=== PATIENT | female | born 1965 | race Caucasian/White ===

== ENCOUNTER 2023-09-09 19:12 | Emergency (ER) | payer BC ==
[2023-09-09 20:17] LABS: Basophils # (A) 0.1 k/uL (0-0.2); Basophils % (A) 1 %; Eosinophils # (A) 0.1 k/uL (0-0.7); Eosinophils % (A) 1 %; HCT 50.2 % (34.0-46.0); HGB 16.7 gm/dL (11.4-16.0); Lymphocytes # (A) 1.9 k/uL (1.0-4.8); Lymphocytes % (A) 16 %; MCH 32.4 pg (25.0-35.0); MCHC 33.4 g/dL (31.0-37.0); MCV 97.1 fL (80.0-100.0); Mean Platelet Volume 8.8; Monocytes # (A) 0.6 k/uL (0-1.0); Monocytes % (A) 5 %; Neutrophils # (A) 8.9 k/uL (1.3-7.7); Neutrophils % (A) 77 %; Platelet Count 295 k/uL (150-450); RBC 5.17 m/uL (3.80-5.40); RDW 12.7 % (11.5-15.5); WBC 11.7 k/uL (3.8-10.6)
[2023-09-09 20:35] VITALS: TEMP 98
[2023-09-09 20:35] LABS: ALT 31 U/L (4-34); AST 29 U/L (14-36); African American GFR (CKD) >90 (>60 ml/min/1.73 sqM); Albumin 4.7 g/dL (3.5-5.0); Alkaline Phosphatase 106 U/L (38-126); Amylase 72 U/L (30-110); Anion Gap 14 mmol/L; Blood Urea Nitrogen 11 mg/dL (7-17); Calcium 9.5 mg/dL (8.4-10.2); Carbon Dioxide 21 mmol/L (22-30); Chloride 100 mmol/L (98-107); Glucose 233 mg/dL (74-99); Lipase 112 U/L (23-300); Non-African American GFR(CKD) >90 (>60 ml/min/1.73 sqM); Potassium 3.8 mmol/L (3.5-5.1); Sodium 135 mmol/L (137-145); Total Bilirubin 1.1 mg/dL (0.2-1.3); Total Protein 7.5 g/dL (6.3-8.2)
[2023-09-09] MEDS: KETOROLAC 15 MG/ML 1 ML VIAL IVP STA (20:45)
[2023-09-09] MEDS: ONDANSETRON ODT 8 MG TAB.RAPDIS PO STA (20:46)
[2023-09-09] MEDS: SODIUM CHLORIDE 0.9% 1,000 ML IV STA (20:46)
[2023-09-09] MEDS: HYDROmorphone 0.5 MG/0.5 ML SYRINGE IVP STA ×2 (21:34→23:59)
[2023-09-10] MEDS: ACETAMINOPHEN TAB 500 MG TAB PO STA (00:10)
[2023-09-10] MEDS: METOCLOPRAMIDE 5 MG/ML 2 ML VIAL IVP STA (01:29)
[2023-09-10] MEDS: HYDROmorphone 0.5 MG/0.5 ML SYRINGE IVP STA (01:33)
--- NOTE | 2023-09-10 01:48 | ED ---
Abdominal Pain HPI - General Chief Complaint: Abdominal Pain Stated Complaint: Vomiting Time Seen by Provider: 09/09/23 19:42 Source: patient, RN notes reviewed Mode of arrival: ambulatory Limitations: no limitations - History of Present Illness Initial Comments: 58-year-old female presents to the ED with complaints of abdominal pain. Patient states for the past 10 years has had intermittent episodes of epigastric abdominal pain with associated nausea and vomiting. Reports that it is due to "heavy metal poisoning" and states that all she needs is "4 bags of fluids and medications" for symptoms. Reports her symptoms today ongoing for the past week however no relief with home medications therefore prompting presentation to the ED for further evaluation. Denies changes in bowel or bladder habits. Denies fever or chills. Denies chest pain or shortness of breath. - Related Data Previous Rx's Medication Instructions Recorded Acetaminophen Tab [Tylenol] 500 mg PO Q6H PRN #30 tablet 09/10/23 Ondansetron Odt [Zofran Odt] 4 mg PO Q8HR PRN #10 tab 09/10/23 Allergies Allergy/AdvReac Type Severity Reaction Status Date / Time No Known Allergies Allergy Verified 09/09/23 19:33 Review of Systems ROS Statement: Those systems with pertinent positive or pertinent negative responses have been documented in the HPI. ROS Other: All systems not noted in ROS Statement are negative. Past Medical History Past Medical History: Diabetes Mellitus History of Any Multi-Drug Resistant Organisms: None Reported Past Surgical History: Cholecystectomy, Hysterectomy, Orthopedic Surgery, Tonsillectomy Past Psychological History: No Psychological Hx Reported Smoking Status: Never smoker Past Alcohol Use History: Occasional Past Drug Use History: None Reported General Exam Limitations: no limitations General appearance: alert, in no apparent distress Eye exam: Present: normal appearance Neck exam: Present: normal inspection Respiratory exam: Present: normal lung sounds bilaterally Cardiovascular Exam: Present: regular rate GI/Abdominal exam: Present: soft (Diffuse epigastric/upper abdominal tenderness to palpation. No rebound guarding or rigidity. Bowel sounds normal.). Absent: distended Neurological exam: Present: alert, oriented X3 Skin exam: Present: warm, dry Course Vital Signs 09/09/23 09/09/23 09/10/23 19:29 21:36 01:00 Temperature 98 F Pulse Rate 118 H 79 70 Respiratory 20 17 16 Rate Blood Pressure 169/100 111/88 113/76 O2 Sat by Pulse 97 96 97 Oximetry 09/10/23 01:36 Temperature Pulse Rate 71 Respiratory 16 Rate Blood Pressure 109/71 O2 Sat by Pulse 98 Oximetry Medical Decision Making - Medical Decision Making Was pt. sent in by a medical professional or institution (KAYLA Munoz, HE[employer], urgent care, hospital, or care home...) When possible be specific @ -No Did you speak to anyone other than the patient for history (EMS, parent, family, police, friend...)? What history was obtained from this source @ -No Did you review nursing and triage notes (agree or disagree)? Why? @ -I reviewed and agree with nursing and triage notes Were old charts reviewed (outside hosp., previous admission, EMS record, old EKG, old radiological studies, urgent care reports/EKG's, care home records)? Report findings @ -No old charts were reviewed Differential Diagnosis (chest pain, altered mental status, abdominal pain women, abdominal pain men, vaginal bleeding, weakness, fever, dyspnea, syncope, hea dache, dizziness, GI bleed, back pain, seizure, CVA, palpatations, mental health, musculoskeletal)? @ -Differential Abdominal Pain Women: Appendicitis, Cholecystitis, diverticulosis, ischemic bowel, pancreatitis, hepatitis, UTI, gastroenteritis, AAA, incarcerated hernia, bowel obstruction, constipation, inflammatory bowel, hepatitis, peptic ulcer disease, splenic infarction, perforated viscus, vulvitis, ovarian torsion, PID, kidney stone, placenta abruption, this is not meant to be an all-inclusive list EKG interpreted by me (3pts min.). @ -None X-rays interpreted by me (1pt min.). @ -None done CT interpreted by me (1pt min.). @ -None done U/S interpreted by me (1pt. min.). @ -None done What testing was considered but not performed or refused? (CT, X-rays, U/S, labs)? Why? @ -CT abdomen pelvis was considered however patient reports that she would not like to have one done as her symptoms are consistent with her history. What meds were considered but not given or refused? Why? @ -None Did you discuss the management of the patient with other professionals (professionals i.e. , KAYLA, [employer]ER, lab, RT, psych nurse, certified social workers in health care, manager event, teacher, chief quality officer, telephonic nurse case manager)? Give summary @ -No Was smoking cessation discussed for >3mins.? @ -No Was critical care preformed (if so, how long)? @ -No Were there social determinants of health that impacted care today? How? (Homelessness, low income, unemployed, alcoholism, drug addiction, transportation, low edu. Level, literacy, decrease access to med. care, long term, rehab)? @ -No Was there de-escalation of care discussed even if they declined (Discuss DNR or withdrawal of care, Hospice)? DNR status @ -No What co-morbidities impacted this encounter? (DM, HTN, Smoking, COPD, CAD, Cancer, CVA, ARF, Chemo, Hep., AIDS, mental health diagnosis, sleep apnea, morbid obesity)? @ -None Was patient admitted / discharged? Hospital course, mention meds given and route, prescriptions, significant lab abnormalities, going to OR and other pertinent info. @ -Discharge 58-year-old female presenting to the ED with complaints of epigastric abdominal pain with associated nausea and vomiting. Laboratory studies reviewed. Labs including CBC, CMP, amylase, lipase largely unremarkable. Patient would not provide us a urine sample. After receiving analgesia and antiemetics here patient reports feeling well. CT scan was considered however at this time patient would not like to have one done as her symptoms are consistent with her history of reports that she would just like medications to help her feel better to be discharged home. Discharged home in stable condition with prescription for Zofran. Discussed return precautions with patient who verbalized agreement. Undiagnosed new problem with uncertain prognosis? @ -No Drug Therapy requiring intensive monitoring for toxicity (Heparin, Nitro, Insulin, Cardizem)? @ -No Were any procedures done? @ -No Diagnosis/symptom? @ -Abdominal pain Acute, or Chronic, or Acute on Chronic? @ -Acute on chronic Uncomplicated (without systemic symptoms) or Complicated (systemic symptoms)? @ -Uncomplicated Side effects of treatment? @ -No Exacerbation, Progression, or Severe Exacerbation? @ -No Poses a threat to life or bodily function? How? (Chest pain, [place], [place], pneumonia, PE, COPD, DKA, ARF, appy, cholecystitis, CVA, Diverticulitis, Homicidal, Suicidal, threat to staff... and all critical care pts) @ -No - Lab Data Result diagrams: 09/09/23 20:01 09/09/23 20:01 Lab Results 09/09/23 09/09/23 Range/Units 20:01 20:01 WBC 11.7 H (3.8-10.6) k/uL RBC 5.17 (3.80-5.40) m/uL Hgb 16.7 H (11.4-16.0) gm/dL Hct 50.2 H (34.0-46.0) % MCV 97.1 (80.0-100.0) fL MCH 32.4 (25.0-35.0) pg MCHC 33.4 (31.0-37.0) g/dL RDW 12.7 (11.5-15.5) % Plt Count 295 (150-450) k/uL MPV 8.8 Neutrophils % 77 % Lymphocytes % 16 % Monocytes % 5 % Eosinophils % 1 % Basophils % 1 % Neutrophils # 8.9 H (1.3-7.7) k/uL Lymphocytes # 1.9 (1.0-4.8) k/uL Monocytes # 0.6 (0-1.0) k/uL Eosinophils # 0.1 (0-0.7) k/uL Basophils # 0.1 (0-0.2) k/uL Sodium 135 L (137-145) mmol/L Potassium 3.8 (3.5-5.1) mmol/L Chloride 100 (98-107) mmol/L Carbon Dioxide 21 L (22-30) mmol/L Anion Gap 14 mmol/L BUN 11 (7-17) mg/dL Creatinine 0.64 (0.52-1.04) mg/dL Est GFR (CKD-EPI)AfAm >90 (>60 ml/min/1.73 sqM) Est GFR (CKD-EPI)NonAf >90 (>60 ml/min/1.73 sqM) Glucose 233 H (74-99) mg/dL Calcium 9.5 (8.4-10.2) mg/dL Total Bilirubin 1.1 (0.2-1.3) mg/dL AST 29 (14-36) U/L ALT 31 (4-34) U/L Alkaline Phosphatase 106 (38-126) U/L Total Protein 7.5 (6.3-8.2) g/dL Albumin 4.7 (3.5-5.0) g/dL Amylase 72 (30-110) U/L Lipase 112 (23-300) U/L Disposition Clinical Impression: Abdominal pain Disposition: HOME SELF-CARE Condition: Good Additional Instructions: Please return to the Emergency Department if symptoms worsen or any other concerns. Please follow-up with your primary care provider. Prescriptions: Acetaminophen Tab [Tylenol] 500 mg PO Q6H PRN #30 tablet PRN Reason: Pain Ondansetron Odt [Zofran Odt] 4 mg PO Q8HR PRN #10 tab PRN Reason: Nausea Is patient prescribed a controlled substance at d/c from ED?: No Referrals: Nonstaff,Physician [Primary Care Provider] - 1-2 days Time of Disposition: 01:50
[2023-09-10 02:14] VITALS: BP 105/67; PULSE 86
[2023-09-10 02:15] VITALS: RESP 17
== END 2023-09-10 02:05 | disposition home or self-care (01) ==
LOC: EC 19:12
DX: R10.13 Epigastric pain (principal); Z90.49 Acquired absence of other specified parts of digestive tract
CPT/HCPCS: 80053; 82150; 83690; 85025; 99284; 96374; 96375 ×2; 96376 ×2; 96361 ×4; J1885; J1170; 36415

== ENCOUNTER 2023-09-10 17:33 | Observation (INO) | payer BC ==
--- NOTE | 2023-09-10 17:42 | ED ---
Nausea/Vomiting/Diarrhea HPI - General Chief complaint: Nausea/Vomiting/Diarrhea Stated complaint: VOMITING, PAIN Time Seen by Provider: 09/10/23 17:38 Source: patient, RN notes reviewed, old records reviewed Mode of arrival: ambulatory Limitations: no limitations - History of Present Illness Initial comments: This is a 58 female to the ER for evaluation of nausea vomiting recurrent evaluation of nausea vomiting with abdominal pain here in the emergency room no fevers no chills no sick contacts no diarrhea no blood in the vomit or stool MD complaint: nausea, vomiting, diarrhea, abdominal pain -: days(s) Description of Vomiting: food contents Description of Diarrhea: water Associated Abdominal Pain: Yes Location: diffuse Severity: mild Severity scale (1-10): 3 Quality: cramping, stabbing, sharp Consistency: intermittent Improves with: none Worsens with: none Associated Symptoms: loss of appetite, malaise, weakness - Related Data Previous Rx's Medication Instructions Recorded Acetaminophen Tab [Tylenol] 500 mg PO Q6H PRN #30 tablet 09/10/23 Ondansetron Odt [Zofran Odt] 4 mg PO Q8HR PRN #10 tab 09/10/23 Allergies Allergy/AdvReac Type Severity Reaction Status Date / Time No Known Allergies Allergy Verified 09/09/23 19:33 Review of Systems ROS Statement: Those systems with pertinent positive or pertinent negative responses have been documented in the HPI. ROS Other: All systems not noted in ROS Statement are negative. Past Medical History Past Medical History: Diabetes Mellitus History of Any Multi-Drug Resistant Organisms: None Reported Past Surgical History: Back Surgery, Cholecystectomy, Hysterectomy, Orthopedic Surgery, Tonsillectomy Past Psychological History: No Psychological Hx Reported Smoking Status: Never smoker Past Alcohol Use History: Occasional Past Drug Use History: None Reported General Exam Limitations: no limitations General appearance: alert, in no apparent distress Head exam: Present: atraumatic, normocephalic, normal inspection Eye exam: Present: normal appearance, PERRL, EOMI. Absent: scleral icterus, conjunctival injection, periorbital swelling ENT exam: Present: normal exam, mucous membranes moist Neck exam: Present: normal inspection. Absent: tenderness, meningismus, lymphadenopathy Respiratory exam: Present: normal lung sounds bilaterally. Absent: respiratory distress, wheezes, rales, rhonchi, stridor Cardiovascular Exam: Present: regular rate, normal rhythm, normal heart sounds. Absent: systolic murmur, diastolic murmur, rubs, gallop, clicks GI/Abdominal exam: Present: soft, normal bowel sounds. Absent: distended, tenderness, guarding, rebound, rigid Extremities exam: Present: normal inspection, full ROM, normal capillary refill. Absent: tenderness, pedal edema, joint swelling, calf tenderness Back exam: Present: normal inspection Neurological exam: Present: alert, oriented X3, CN II-XII intact Psychiatric exam: Present: normal affect, normal mood Skin exam: Present: warm, dry, intact, normal color. Absent: rash Course Vital Signs 09/10/23 09/10/23 17:34 20:49 Temperature 99.5 F Pulse Rate 119 H 84 Respiratory 22 18 Rate Blood Pressure 184/124 120/60 O2 Sat by Pulse 96 96 Oximetry - Reevaluation(s) Reevaluation #1: 09/10/23 17:42 Medical records reviewed Reevaluation #2: 09/10/23 17:42 Patient symptoms unchanged Reevaluation #3: 09/10/23 22:17 Patient informed of results and questions answered Reevaluation #4: Was pt. sent in by a medical professional or institution (, PA, CREW CHIEF, urgent care, hospital, or fci...) When possible be specific @ -no Did you speak to anyone other than the patient for history (EMS, parent, family, police, friend...)? What history was obtained from this source @ -no Did you review nursing and triage notes (agree or disagree)? Why? @ -agree Are old charts reviewed (outside hosp., previous admission, EMS record, old EKG, old radiological studies, urgent care reports/EKG's, fci records)? Report findings @ -yes Differential Diagnosis (chest pain, altered mental status, abdominal pain women, abdominal pain men, vaginal bleeding, weakness, fever, dyspnea, syncope, headache, dizziness, GI bleed, back pain, seizure, CVA, palpatations, mental health, musculoskeletal)? @ -prior EKG interpreted by me (3pts min.). @ -yes X-rays interpreted by me (1pt min.). @ -yes negative for acute disease CT interpreted by me (1pt min.). @ -no U/S interpreted by me (1pt. min.). @ -no What testing was considered but not performed or refused? (CT, X-rays, U/S, labs)? Why? @ -none What meds were considered but not given or refused? Why? @ -none Did you discuss the management of the patient with other professionals (professionals i.e. , PA, CREW CHIEF, lab, RT, psych nurse, vp digital marketing social media and crm, high school foreign language teacher, teacher, public relations officer, rn field case manager)? Give summary @ -no Was smoking cessation discussed for >3mins.? @ -no Were there social determinants of health that impacted care today? How? (Homele ssness, low income, unemployed, alcoholism, drug addiction, transportation, low edu. Level, literacy, decrease access to med. care, fdc, rehab)? @ -none Was there de-escalation of care discussed even if they declined (Discuss DNR or withdrawal of care, Hospice)? DNR status @ -no What co-morbidities impacted this encounter? (DM, HTN, Smoking, COPD, CAD, Cancer, CVA, ARF, Chemo, Hep., AIDS, mental health diagnosis, sleep apnea, morbid obesity)? @ -none Was patient admitted / discharged? Hospital course, mention meds given and route, prescriptions, significant lab abnormalities, going to OR and other pertinent info. @ - Was critical care preformed (if so, how long)? @ -no Undiagnosed new problem with uncertain prognosis? @ -no Drug Therapy requiring intensive monitoring for toxicity (Heparin, Nitro, Insulin, Cardizem)? @ -no Were any procedures done? @ -no Diagnosis/symptom? @ - Acute, or Chronic, or Acute on Chronic? @ -Acute Uncomplicated (without systemic symptoms) or Complicated (systemic symptoms)? @ -Complicated Side effects of treatment? @ -no Exacerbation, Progression, or Severe Exacerbation? @ -exacerbation Poses a threat to life or bodily function? How? (Chest pain, [place], [place], pneumonia, PE, COPD, DKA, ARF, appy, cholecystitis, CVA, Diverticulitis, Homicidal, Suicidal, threat to staff... and all critical care pts) @ -yes Reevaluation #5: Differential Abdominal Pain Women: Appendicitis, Cholecystitis, diverticulosis, ischemic bowel, pancreatitis, hepatitis, UTI, gastroenteritis, AAA, incarcerated hernia, bowel obstruction, constipation, inflammatory bowel, hepatitis, peptic ulcer disease, splenic infarction, perforated viscus, vulvitis, ovarian torsion, PID, kidney stone, placenta abruption, this is not meant to be an all-inclusive list - Consultations Consultation #1: Spoke with kathie who agrees to admit this patient Medical Decision Making - Medical Decision Making 58 female to the ER for evaluation of significant nausea vomiting diarrhea and abdominal pain. Patient will be admitted, does have findings of jejunitis, will admit for symptom control - Lab Data Result diagrams: 09/10/23 17:58 09/10/23 17:58 Lab Results 09/10/23 09/10/23 09/10/23 Range/Units 17:58 17:58 17:58 WBC 14.3 H (3.8-10.6) k/uL RBC 5.43 H (3.80-5.40) m/uL Hgb 17.0 H (11.4-16.0) gm/dL Hct 51.7 H (34.0-46.0) % MCV 95.3 (80.0-100.0) fL MCH 31.3 (25.0-35.0) pg MCHC 32.8 (31.0-37.0) g/dL RDW 12.6 (11.5-15.5) % Plt Count 327 (150-450) k/uL MPV 9.0 Neutrophils % 81 % Lymphocytes % 12 % Monocytes % 5 % Eosinophils % 1 % Basophils % 0 % Neutrophils # 11.6 H (1.3-7.7) k/uL Lymphocytes # 1.8 (1.0-4.8) k/uL Monocytes # 0.7 (0-1.0) k/uL Eosinophils # 0.1 (0-0.7) k/uL Basophils # 0.1 (0-0.2) k/uL PT (10.0-12.5) sec INR (<1.2) Sodium 135 L (137-145) mmol/L Potassium 3.7 (3.5-5.1) mmol/L Chloride 100 (98-107) mmol/L Carbon Dioxide 21 L (22-30) mmol/L Anion Gap 14 mmol/L BUN 10 (7-17) mg/dL Creatinine 0.58 (0.52-1.04) mg/dL Est GFR (CKD-EPI)AfAm >90 (>60 ml/min/1.73 sqM) Est GFR (CKD-EPI)NonAf >90 (>60 ml/min/1.73 sqM) Glucose 160 H (74-99) mg/dL Plasma Lactic Acid [place] 1.8 (0.7-2.0) mmol/L Calcium 9.3 (8.4-10.2) mg/dL Phosphorus 2.5 (2.5-4.5) mg/dL Magnesium 2.0 (1.6-2.3) mg/dL Total Bilirubin 1.2 (0.2-1.3) mg/dL AST 39 H (14-36) U/L ALT 32 (4-34) U/L Alkaline Phosphatase 119 (38-126) U/L Troponin I (0.000-0.034) ng/mL Total Protein 8.4 H (6.3-8.2) g/dL Albumin 5.0 (3.5-5.0) g/dL Amylase 101 (30-110) U/L Lipase 141 (23-300) U/L Urine Color Urine Appearance (Clear) Urine pH (5.0-8.0) Ur Specific [place] (1.001-1.035) Urine Protein (Negative) Urine Glucose (UA) (Negative) Urine Ketones (Negative) Urine Blood (Negative) Urine Nitrite (Negative) Urine Bilirubin (Negative) Urine Urobilinogen (<2.0) mg/dL Ur Leukocyte Esterase (Negative) Urine RBC (0-5) /hpf Urine WBC (0-5) /hpf Ur Squamous Epith Cells (0-4) /hpf Urine Mucus (None) /hpf 09/10/23 09/10/23 09/10/23 Range/Units 17:58 18:30 20:49 WBC (3.8-10.6) k/uL RBC (3.80-5.40) m/uL Hgb (11.4-16.0) gm/dL Hct (34.0-46.0) % MCV (80.0-100.0) fL MCH (25.0-35.0) pg MCHC (31.0-37.0) g/dL RDW (11.5-15.5) % Plt Count (150-450) k/uL MPV Neutrophils % % Lymphocytes % % Monocytes % % Eosinophils % % Basophils % % Neutrophils # (1.3-7.7) k/uL Lymphocytes # (1.0-4.8) k/uL Monocytes # (0-1.0) k/uL Eosinophils # (0-0.7) k/uL Basophils # (0-0.2) k/uL PT 10.7 (10.0-12.5) sec INR 1.0 (<1.2) Sodium (137-145) mmol/L Potassium (3.5-5.1) mmol/L Chloride (98-107) mmol/L Carbon Dioxide (22-30) mmol/L Anion Gap mmol/L BUN (7-17) mg/dL Creatinine (0.52-1.04) mg/dL Est GFR (CKD-EPI)AfAm (>60 ml/min/1.73 sqM) Est GFR (CKD-EPI)NonAf (>60 ml/min/1.73 sqM) Glucose (74-99) mg/dL Plasma Lactic Acid [place] (0.7-2.0) mmol/L Calcium (8.4-10.2) mg/dL Phosphorus (2.5-4.5) mg/dL Magnesium (1.6-2.3) mg/dL Total Bilirubin (0.2-1.3) mg/dL AST (14-36) U/L ALT (4-34) U/L Alkaline Phosphatase (38-126) U/L Troponin I <0.012 (0.000-0.034) ng/mL Total Protein (6.3-8.2) g/dL Albumin (3.5-5.0) g/dL Amylase (30-110) U/L Lipase (23-300) U/L Urine Color Colorless Urine Appearance Clear (Clear) Urine pH 6.0 (5.0-8.0) Ur Specific [place] >1.050 H (1.001-1.035) Urine Protein 1+ H (Negative) Urine Glucose (UA) Trace H (Negative) Urine Ketones 3+ H (Negative) Urine Blood Negative (Negative) Urine Nitrite Negative (Negative) Urine Bilirubin Negative (Negative) Urine Urobilinogen <2.0 (<2.0) mg/dL Ur Leukocyte Esterase Negative (Negative) Urine RBC 2 (0-5) /hpf Urine WBC <1 (0-5) /hpf Ur Squamous Epith Cells 1 (0-4) /hpf Urine Mucus Rare H (None) /hpf - Radiology Data Radiology results: report reviewed (CT pelvis with jejunitis), image reviewed Disposition Clinical Impression: Dehydration, Gastroenteritis, Intractable nausea, Intractable abdominal pain Disposition: ADMITTED IP TO THIS HOSP Condition: Fair Is patient prescribed a controlled substance at d/c from ED?: No Referrals: Nonstaff,Physician [Primary Care Provider] - 1-2 days Time of Disposition: 22:00
[2023-09-10 18:13] LABS: Basophils # (A) 0.1 k/uL (0-0.2); Basophils % (A) 0 %; Eosinophils # (A) 0.1 k/uL (0-0.7); Eosinophils % (A) 1 %; HCT 51.7 % (34.0-46.0); Lymphocytes # (A) 1.8 k/uL (1.0-4.8); Lymphocytes % (A) 12 %; MCH 31.3 pg (25.0-35.0); MCHC 32.8 g/dL (31.0-37.0); MCV 95.3 fL (80.0-100.0); Monocytes # (A) 0.7 k/uL (0-1.0); Monocytes % (A) 5 %; Neutrophils # (A) 11.6 k/uL (1.3-7.7); Neutrophils % (A) 81 %; Platelet Count 327 k/uL (150-450); RBC 5.43 m/uL (3.80-5.40); RDW 12.6 % (11.5-15.5); WBC 14.3 k/uL (3.8-10.6)
[2023-09-10] MEDS: ONDANSETRON 4 MG/2 ML VIAL IVP STA (18:13)
[2023-09-10 18:18] LABS: ALT 32 U/L (4-34); AST 39 U/L (14-36); African American GFR (CKD) >90 (>60 ml/min/1.73 sqM); Alkaline Phosphatase 119 U/L (38-126); Amylase 101 U/L (30-110); Anion Gap 14 mmol/L; Blood Urea Nitrogen 10 mg/dL (7-17); Calcium 9.3 mg/dL (8.4-10.2); Carbon Dioxide 21 mmol/L (22-30); Chloride 100 mmol/L (98-107); Glucose 160 mg/dL (74-99); Lipase 141 U/L (23-300); Non-African American GFR(CKD) >90 (>60 ml/min/1.73 sqM); Phosphorus 2.5 mg/dL (2.5-4.5); Potassium 3.7 mmol/L (3.5-5.1); Sodium 135 mmol/L (137-145); Total Bilirubin 1.2 mg/dL (0.2-1.3); Total Protein 8.4 g/dL (6.3-8.2)
[2023-09-10] MEDS: PANTOPRAZOLE 40 MG/10 ML VIAL IVP STA (18:25)
[2023-09-10] MEDS: SODIUM CHLORIDE 0.9% 500 ML 500 ML IV STA (18:26)
[2023-09-10] MEDS: SODIUM CHLORIDE 0.9% 1,000 ML IV STA ×2 (18:26)
[2023-09-10] MEDS: diphenhydrAMINE 50 MG/ML 1 ML VIAL IVP STA (18:30)
[2023-09-10] MEDS: PROCHLORPERAZINE INJ 10 MG/2 ML VIAL IVP STA (18:31)
[2023-09-10] MEDS: HYDROmorphone 1 MG/ML 1 ML SYRINGE IVP STA (18:31)
[2023-09-10 19:21] LABS: Prothrombin Time 10.7 sec (10.0-12.5)
[2023-09-10 20:57] LABS: Appearance,Urine Clear (Clear); Bilirubin,Urine Negative (Negative); Blood,Urine Negative (Negative); Color,Urine Colorless; Glucose,Urine (UA) Trace (Negative); Ketones,Urine 3+ (Negative); Leukocyte Esterase,Urine Negative (Negative); Mucus,Urine Rare /hpf; Nitrite,Urine Negative (Negative); Protein,Urine 1+ (Negative); RBC,Urine 2 /hpf (0-5); Squamous Epithelial Cell,Urine 1 /hpf (0-4); Urobilinogen,Urine <2.0 mg/dL (<2.0); WBC,Urine <1 /hpf (0-5)
[2023-09-10 21:22] LABS: Specific Gravity,Urine >1.050 (1.001-1.035)
--- NOTE | 2023-09-10 21:30 | CT ---
CTA CHEST EXAMINATION TYPE: CT angio chest DATE OF EXAM: 09/10/2023 INDICATION: epigastric pain/vomiting CT DLP: 416.4 mGycm, Automated exposure control for dose reduction was used. CONTRAST: Patient injected with 100 mL of Isovue 370. COMPARISON: None TECHNIQUE: CT of the chest is performed on a spiral scan at 2 mm thick sections. Study is performed with intravenous contrast timed for evaluation for pulmonary embolism. This will limit additional po rtions of the evaluation. 3-D MIP images reconstructed by the technologist are reviewed on the compu ter in the coronal and sagittal planes. FINDINGS: No persistent filling defects are evident to suggest an acute pulmonary embolism. No mediastinal or hilar adenopathy enlarged by CT criteria is evident. The ascending aorta diameter at the level of the main pulmonary artery is 4.0 cm. The main pulmonary artery diameter at the bifurcation is 2.5 cm. Lung windows are clear. Limited CT sections were through the upper abdomen. Upper abdomen appears unremarkable. IMPRESSION: 1. No acute pulmonary embolism. 2. No acute pulmonary process.
--- NOTE | 2023-09-10 21:34 | CT ---
EXAMINATION TYPE: CT abdomen pelvis w con DATE OF EXAM: 09/10/2023 COMPARISON: None INDICATION: epigastric pain/vomiting DLP: 1376.1 mGycm, Automated exposure control for dose reduction was used. CONTRAST: 100 mL of Isovue 300. Study performed without Oral Contrast TECHNIQUE: Axial images were obtained from above the diaphragm to the pubic rami in the axial plane a t 5 mm thick sections. Reconstructed images are reviewed on the computer in the coronal plane. FINDINGS: Limited CT sections are obtained the lung bases. The lung bases are clear. CT ABDOMEN: Liver: Normal Spleen: Normal Pancreas: Normal Adrenal glands: Left adrenal gland is mildly prominent 1.3 cm. Right adrenal gland appears unremarkab le. Gallbladder: Surgically absent Kidneys: No masses are evident. No hydronephrosis is present. No cysts are present. Delayed images were obtained through the kidneys, which remain unremarkable. Aorta: Vascular calcification is within the aorta. Inferior vena cava: Normal. CT PELVIS: There are jejunum which are thickened. No adjacent inflammatory change evident. No wall enhancement i s evident. The ileum has a normal caliber fluid-filled the distalmost ileum has a normal caliber with out fluid. Colon appears unremarkable. Diverticuli within the sigmoid colon. The study is without con trast material bowel evaluation. Appendix: Not clearly identified. No dilated tubular structure or inflammatory change is evident. Urinary bladder: Normal. Genitourinary structures: Uterus and ovaries are not identified. Osseous structures: No suspicious lytic or sclerotic lesions. IMPRESSION: 1. Clinical consideration for jejunitis. No obstruction is evident. Some mild mid small bowel ileal ileus may be present. 2. Mild prominence of left adrenal gland. 3. Diverticulosis without acute diverticulitis
[2023-09-10] MEDS ORDERED: NALOXONE 0.4 MG/ML 1 ML VIAL IV PRN (22:11)
[2023-09-10] MEDS: SODIUM CHLORIDE 0.9% 1,000 ML IV SCH (23:56)
[2023-09-11] MEDS ORDERED: DEXTROSE 50% SYRINGE 50 ML IVP PRN ×4 (02:22→16:12)
--- NOTE | 2023-09-11 02:28 | P.HPIM ---
History of Present Illness H&P Date: 09/10/23 Chief Complaint: Abdominal pain 58-year-old female with diabetes mellitus Patient coming in with 1 week history of repeated nausea vomiting and abdominal pain she describes the abdominal pain is severe colicky diffuse abdominal pain worse with fluid, associated with nausea vomiting worse with food. Patient has noticed decreased p.o. intake. Last bowel movement was few days ago she denies passing gases however she does not feel distended. She denies any fevers chills denies any chest pain trouble breathing. Patient is from out of town she lives in [place] they got about here for the summer and moved here with her her is feeling fine denies any s imilar symptoms. She denies any unsanitary food or drink. She denies any GI bleeding Last episode of vomiting was 1 hour ago while she was in the ED Patient denies tobacco smoking illicit drugs or heavy alcohol review of systems Pertinent positives as noted in HPI. All other systems were reviewed and are negative on exam Constitutional: No acute distress, conversant, pleasant Eyes: Anicteric sclerae, moist conjunctiva, Pupils equal round reactive to light ENMT: NC/AT Oropharynx clear, no erythema, or exudates Neck: Supple, no masses, or JVD No carotid bruits No thyromegaly Lungs: Clear to auscultation Clear to percussion Normal respiratory effort, no accessory muscle use Cardiovascular: Heart regular in rate and rhythm, No murmurs, gallops, or rubs No peripheral edema Abdominal: Soft Nontender, no guarding, rebound or rigidity Abdomen moving with respiration Normoactive bowel sounds Extremities: No digital cyanosis No clubbing Pedal pulses intact and symmetrical Radial pulses intact and symmetrical No calf tenderness Psychiatric: Alert and oriented to person, place and time Appropriate affect fair judgement Neuro Muscles Strength 5/5 in all 4 extremities Sensation to light touch grossly present throughout Cranial nerves II-XII grossly intact Lymphatics: no palpable cervical or supraclavicular lymph nodes Past Medical History Past Medical History: Diabetes Mellitus History of Any Multi-Drug Resistant Organisms: None Reported Past Surgical History: Back Surgery, Cholecystectomy, Hysterectomy, Orthopedic Surgery, Tonsillectomy Past Psychological History: No Psychological Hx Reported Smoking Status: Never smoker Past Alcohol Use History: Occasional Past Drug Use History: None Reported Medications and Allergies Home Medications Medication Instructions Recorded Confirmed Type Acetaminophen Tab [Tylenol] 500 mg PO Q6H PRN #30 tablet 09/10/23 Rx Ondansetron Odt [Zofran Odt] 4 mg PO Q8HR PRN #10 tab 09/10/23 Rx Allergies Allergy/AdvReac Type Severity Reaction Status Date / Time No Known Allergies Allergy Verified 09/09/23 19:33 Physical Exam Vitals: Vital Signs Temp Pulse Resp BP Pulse Ox 09/10/23 20:49 84 18 120/60 96 09/10/23 17:34 99.5 F 119 H 22 184/124 96 Intake and Output 09/10/23 09/10/23 09/10/23 06:59 14:59 22:59 Other: Weight 86.183 kg Results CBC & Chem 7: 09/10/23 17:58 09/10/23 17:58 Labs: Abnormal Lab Results - Last 24 Hours (Table) 09/10/23 09/10/23 09/10/23 Range/Units 17:58 17:58 20:49 WBC 14.3 H (3.8-10.6) k/uL RBC 5.43 H (3.80-5.40) m/uL Hgb 17.0 H (11.4-16.0) gm/dL Hct 51.7 H (34.0-46.0) % Neutrophils # 11.6 H (1.3-7.7) k/uL Sodium 135 L (137-145) mmol/L Carbon Dioxide 21 L (22-30) mmol/L Glucose 160 H (74-99) mg/dL AST 39 H (14-36) U/L Total Protein 8.4 H (6.3-8.2) g/dL Ur Specific [place] >1.050 H (1.001-1.035) Urine Protein 1+ H (Negative) Urine Glucose (UA) Trace H (Negative) Urine Ketones 3+ H (Negative) Urine Mucus Rare H (None) /hpf Assessment and Plan Assessment: 58-year-old female with diabetes mellitus coming in for repeated nausea vomiting abdominal pain no 5 to 7 days duration I discussed case with ED doctor and accepted the admission for ileus with anticipated length of stay less than 2 midnights Jejunitis with ileus N.p.o. IV fluid hydration normal saline status post 2 L bolus continue with 130 cc/h Symptomatic control of nausea vomiting and pain Zofran 4 mg every 8 hours as needed Pain control with opiates as needed CT of the abdomen showed jejunitis and ileus General surgery consult Protonix 40 mg IV push daily White count 14.3 afebrile Follow-up cultures Continue with Rocephin 1 g IV piggyback daily Flagyl 500 mg IV piggyback every 8 hours Lactic acid unremarkable 1.[address] enzymes un[address] angio of the chest negative for acute PE Diabetes mellitus Insulin sliding scale Blood work showing white count 14.3, hemoglobin 17 Sodium 135 potassium 3.7 BUN 10 creatinine 0.5 Full code DVT prophylaxis heparin subcutaneously GI prophylaxis on Protonix daily
[2023-09-11 03:27] LABS: Basophils % (A) 1 %; Eosinophils # (A) 0.2 k/uL (0-0.7); Eosinophils % (A) 3 %; Lymphocytes # (A) 2.6 k/uL (1.0-4.8); Lymphocytes % (A) 29 %; MCH 30.9 pg (25.0-35.0); MCHC 31.4 g/dL (31.0-37.0); MCV 98.5 fL (80.0-100.0); Mean Platelet Volume 8.6; Monocytes # (A) 0.5 k/uL (0-1.0); Monocytes % (A) 6 %; Neutrophils # (A) 5.3 k/uL (1.3-7.7); Neutrophils % (A) 60 %; Platelet Count 246 k/uL (150-450); RBC 4.26 m/uL (3.80-5.40); RDW 12.9 % (11.5-15.5); WBC 8.9 k/uL (3.8-10.6)
[2023-09-11 03:32] LABS: Chloride 107 mmol/L (98-107); Potassium 3.7 mmol/L (3.5-5.1); Sodium 136 mmol/L (137-145)
[2023-09-11 03:34] LABS: ALT 21 U/L (4-34); AST 21 U/L (14-36); African American GFR (CKD) >90 (>60 ml/min/1.73 sqM); Albumin 3.1 g/dL (3.5-5.0); Alkaline Phosphatase 68 U/L (38-126); Anion Gap 7 mmol/L; Blood Urea Nitrogen 8 mg/dL (7-17); Carbon Dioxide 22 mmol/L (22-30); Glucose 147 mg/dL (74-99); Magnesium 1.9 mg/dL (1.6-2.3); Non-African American GFR(CKD) >90 (>60 ml/min/1.73 sqM); Phosphorus 3.9 mg/dL (2.5-4.5); Total Bilirubin 0.8 mg/dL (0.2-1.3); Total Protein 5.4 g/dL (6.3-8.2)
[2023-09-11 03:41] LABS: HGB 13.2 gm/dL (11.4-16.0)
[2023-09-11] MEDS: HYDROmorphone 1 MG/ML 1 ML SYRINGE IVP PRN (04:24)
[2023-09-11] MEDS: metroNIDAZOLE-NS PMX 500 MG in SALINE 1 100ML.BAG IVPB SCH (04:28)
[2023-09-11 07:49] LABS: Glucose,Whole Blood 144 mg/dL (70-110)
[2023-09-11] MEDS: INSULIN ASPART (NovoLOG) 100 UNIT/ML VIAL SQ SCH ×2 (08:24→17:51)
[2023-09-11] MEDS: HEPARIN SODIUM,PORCINE 5,000 UNIT/ML 1 ML VIAL SQ SCH (08:30)
[2023-09-11] MEDS: PANTOPRAZOLE 40 MG/10 ML VIAL IV SCH (08:30)
[2023-09-11] MEDS: ONDANSETRON 4 MG/2 ML VIAL IVP PRN (08:30)
--- NOTE | 2023-09-11 10:46 | P.GSCN ---
History of Present Illness Consult date: 09/11/23 Reason for Consult: Abdominal pain History of present illness: 58-year-old female comes to the hospital complaining of intractable nausea and v omiting. Patient describes upper abdominal discomfort as well. Patient states she has had trouble since 2011. She said she had a back surgery and following that has had intermittent nausea and vomiting and the cyclical nature. Patient says she has not had an upper endoscopy in the last 10 years. Apparently she followed with a apple picker in [place]. She is staying here for the summer. Patient describes it constipation at times. No rectal bleeding or melena. No hematemesis. Patient is diabetic. Home medications included Zofran as needed. No antiacids noted. No history of ulcers. Normal bowel meant yesterday. Review of Systems The patient denies any acute changes in vision or hearing, no dysphagia or odynophagia, no chest pain or shortness of breath, no dysuria or hematuria, no headache, no runny nose, no rectal bleeding or melena, no unexplained weight loss Past Medical History Past Medical History: Diabetes Mellitus History of Any Multi-Drug Resistant Organisms: None Reported Past Surgical History: Back Surgery, Cholecystectomy, Hysterectomy, Orthopedic Surgery, Tonsillectomy Past Psychological History: No Psychological Hx Reported Smoking Status: Never smoker Past Alcohol Use History: Occasional Past Drug Use History: None Reported Medications and Allergies Home Medications Medication Instructions Recorded Confirmed Type Acetaminophen Tab [Tylenol] 500 mg PO Q6H PRN #30 tablet 09/10/23 Rx Ondansetron Odt [Zofran Odt] 4 mg PO Q8HR PRN #10 tab 09/10/23 Rx Allergies Allergy/AdvReac Type Severity Reaction Status Date / Time No Known Allergies Allergy Verified 09/09/23 19:33 Surgical - Exam Vital Signs Temp Pulse Resp BP Pulse Ox 99.5 F 119 H 22 184/124 96 09/10/23 17:34 09/10/23 17:34 09/10/23 17:34 09/10/23 17:34 09/10/23 17:34 Physical exam: General: Well-developed, well-nourished HEENT: Normocephalic, sclerae nonicteric Abdomen: Mild epigastric tenderness, nondistended Extremities: No edema Neuro: Alert and oriented Results - Labs 09/11/23 02:52 09/11/23 02:52 Abnormal Lab Results - Last 24 Hours (Table) 09/10/23 09/10/23 09/10/23 Range/Units 17:58 17:58 20:49 WBC 14.3 H (3.8-10.6) k/uL RBC 5.43 H (3.80-5.40) m/uL Hgb 17.0 H (11.4-16.0) gm/dL Hct 51.7 H (34.0-46.0) % Neutrophils # 11.6 H (1.3-7.7) k/uL Sodium 135 L (137-145) mmol/L Carbon Dioxide 21 L (22-30) mmol/L Glucose 160 H (74-99) mg/dL POC Glucose (mg/dL) (70-110) mg/dL Calcium (8.4-10.2) mg/dL AST 39 H (14-36) U/L Total Protein 8.4 H (6.3-8.2) g/dL Albumin (3.5-5.0) g/dL Ur Specific [place] >1.050 H (1.001-1.035) Urine Protein 1+ H (Negative) Urine Glucose (UA) Trace H (Negative) Urine Ketones 3+ H (Negative) Urine Mucus Rare H (None) /hpf 09/11/23 09/11/23 Range/Units 02:52 07:46 WBC (3.8-10.6) k/uL RBC (3.80-5.40) m/uL Hgb (11.4-16.0) gm/dL Hct (34.0-46.0) % Neutrophils # (1.3-7.7) k/uL Sodium 136 L (137-145) mmol/L Carbon Dioxide (22-30) mmol/L Glucose 147 H (74-99) mg/dL POC Glucose (mg/dL) 144 H (70-110) mg/dL Calcium 8.0 L (8.4-10.2) mg/dL AST (14-36) U/L Total Protein 5.4 L (6.3-8.2) g/dL Albumin 3.1 L (3.5-5.0) g/dL Ur Specific [place] (1.001-1.035) Urine Protein (Negative) Urine Glucose (UA) (Negative) Urine Ketones (Negative) Urine Mucus (None) /hpf Diabetes panel 09/10/23 09/11/23 Range/Units 17:58 02:52 Sodium 135 L 136 L (137-145) mmol/L Potassium 3.7 3.7 (3.5-5.1) mmol/L Chloride 100 107 (98-107) mmol/L Carbon Dioxide 21 L 22 (22-30) mmol/L BUN 10 8 (7-17) mg/dL Creatinine 0.58 0.56 (0.52-1.04) mg/dL Glucose 160 H 147 H (74-99) mg/dL Calcium 9.3 8.0 L (8.4-10.2) mg/dL AST 39 H 21 (14-36) U/L ALT 32 21 (4-34) U/L Alkaline Phosphatase 119 68 (38-126) U/L Total Protein 8.4 H 5.4 L (6.3-8.2) g/dL Albumin 5.0 3.1 L (3.5-5.0) g/dL Calcium panel 09/10/23 09/11/23 Range/Units 17:58 02:52 Calcium 9.3 8.0 L (8.4-10.2) mg/dL Phosphorus 2.5 3.9 (2.5-4.5) mg/dL Albumin 5.0 3.1 L (3.5-5.0) g/dL Pituitary panel 09/10/23 09/11/23 Range/Units 17:58 02:52 Sodium 135 L 136 L (137-145) mmol/L Potassium 3.7 3.7 (3.5-5.1) mmol/L Chloride 100 107 (98-107) mmol/L Carbon Dioxide 21 L 22 (22-30) mmol/L BUN 10 8 (7-17) mg/dL Creatinine 0.58 0.56 (0.52-1.04) mg/dL Glucose 160 H 147 H (74-99) mg/dL Calcium 9.3 8.0 L (8.4-10.2) mg/dL Adrenal panel 09/10/23 09/11/23 Range/Units 17:58 02:52 Sodium 135 L 136 L (137-145) mmol/L Potassium 3.7 3.7 (3.5-5.1) mmol/L Chloride 100 107 (98-107) mmol/L Carbon Dioxide 21 L 22 (22-30) mmol/L BUN 10 8 (7-17) mg/dL Creatinine 0.58 0.56 (0.52-1.04) mg/dL Glucose 160 H 147 H (74-99) mg/dL Calcium 9.3 8.0 L (8.4-10.2) mg/dL Total Bilirubin 1.2 0.8 (0.2-1.3) mg/dL AST 39 H 21 (14-36) U/L ALT 32 21 (4-34) U/L Alkaline Phosphatase 119 68 (38-126) U/L Total Protein 8.4 H 5.4 L (6.3-8.2) g/dL Albumin 5.0 3.1 L (3.5-5.0) g/dL Assessment and Plan (1) Intractable nausea Narrative/Plan: 58-year-old female with epigastric pain and intractable vomiting. CAT scan revi ewed. No obvious abnormalities noted. Mild jejunitis described by radiology however very subtle. Ideally this is a problem that gastroenterology would be evaluating. They are not available at this time. Will proceed with upper endoscopy tomorrow. If symptoms persist recommend outpatient GI evaluation. Current Visit: Yes Status: Acute Code(s): R11.0 - NAUSEA SNOMED Code(s): 133808312
[2023-09-11 12:48] LABS: Glucose,Whole Blood 172 mg/dL (70-110)
--- NOTE | 2023-09-11 14:20 | P.PN ---
Subjective Progress Note Date: 09/11/23 No new complaints at this time. Seen by surgery, recommending EGD. Gen: In NAD, non-toxic HEENT: normocephalic, atraumatic, hearing acuity is intant, mucous membranes moist CVS: perfusing all extremities well, no pitting edema, Respiratory: symmetric chest expansion, no accessory muscle use, GI: soft, epigastric tenderness, ND, : no suprapubic tenderness, no CVA tenderness MSK/Derm: no rashes, cyanosis Neuro: CN II-XII intact, no motor weakness, Psych: cooperative, euthymic mood, judgment and insight is intact Hospital course: 58-year-old female with diabetes mellitus coming in for repeated nausea vomiting abdominal pain. IV fluid hydration normal saline status post [address] of the abdomen showed jejunitis and ileus White count 14.3 afebrile Lactic acid unremarkable 1.[address] angio of the chest negative for acute PE Blood work showing white count 14.3, hemoglobin 17 Sodium 135 potassium 3.7 BUN 10 creatinine 0.5 Assessment/plan: Jejunitis with ileus N.p.o. continue with 130 cc/h Symptomatic control of nausea vomiting and pain Zofran 4 mg every 8 hours as needed Pain control with opiates as needed General surgery consult Protonix 40 mg IV push daily Follow-up cultures are still pending Continue with Rocephin 1 g IV piggyback daily Flagyl 500 mg IV piggyback every 8 hours Diabetes mellitus Insulin sliding scale Full code DVT prophylaxis heparin subcutaneously GI prophylaxis on Protonix daily Objective - Vital Signs Vital signs: Vital Signs Temp 98.3 F 09/11/23 07:38 Pulse 79 09/11/23 07:38 Resp 16 09/11/23 08:15 BP 137/77 09/11/23 07:38 Pulse Ox 96 09/11/23 07:38 FiO2 Intake & Output 09/10/23 09/11/23 09/11/23 18:59 06:59 18:59 Weight 86.183 kg Other: Voiding Method Toilet - Labs CBC & Chem 7: 09/11/23 02:52 09/11/23 02:52 Labs: Abnormal Lab Results - Last 24 Hours (Table) 09/10/23 09/10/23 09/10/23 Range/Units 17:58 17:58 20:49 WBC 14.3 H (3.8-10.6) k/uL RBC 5.43 H (3.80-5.40) m/uL Hgb 17.0 H (11.4-16.0) gm/dL Hct 51.7 H (34.0-46.0) % Neutrophils # 11.6 H (1.3-7.7) k/uL Sodium 135 L (137-145) mmol/L Carbon Dioxide 21 L (22-30) mmol/L Glucose 160 H (74-99) mg/dL POC Glucose (mg/dL) (70-110) mg/dL Calcium (8.4-10.2) mg/dL AST 39 H (14-36) U/L Total Protein 8.4 H (6.3-8.2) g/dL Albumin (3.5-5.0) g/dL Ur Specific [place] >1.050 H (1.001-1.035) Urine Protein 1+ H (Negative) Urine Glucose (UA) Trace H (Negative) Urine Ketones 3+ H (Negative) Urine Mucus Rare H (None) /hpf 09/11/23 09/11/23 09/11/23 Range/Units 02:52 07:46 12:47 WBC (3.8-10.6) k/uL RBC (3.80-5.40) m/uL Hgb (11.4-16.0) gm/dL Hct (34.0-46.0) % Neutrophils # (1.3-7.7) k/uL Sodium 136 L (137-145) mmol/L Carbon Dioxide (22-30) mmol/L Glucose 147 H (74-99) mg/dL POC Glucose (mg/dL) 144 H 172 H (70-110) mg/dL Calcium 8.0 L (8.4-10.2) mg/dL AST (14-36) U/L Total Protein 5.4 L (6.3-8.2) g/dL Albumin 3.1 L (3.5-5.0) g/dL Ur Specific [place] (1.001-1.035) Urine Protein (Negative) Urine Glucose (UA) (Negative) Urine Ketones (Negative) Urine Mucus (None) /hpf
[2023-09-11 17:24] LABS: Glucose,Whole Blood 168 mg/dL (70-110)
[2023-09-11 21:11] LABS: Glucose,Whole Blood 181 mg/dL (70-110)
[2023-09-12 03:42] VITALS: TEMP 98.1
[2023-09-12 05:51] LABS: Glucose,Whole Blood 159 mg/dL (70-110)
[2023-09-12 09:46] VITALS: RESP 16
[2023-09-12 10:41] LABS: Basophils # (A) 0.06 X 10*3/uL (0.00-0.10); Basophils % (A) 0.8 %; Eosinophils # (A) 0.27 X 10*3/uL (0.04-0.35); Eosinophils % (A) 3.6 %; HCT 40.4 % (37.2-46.3); Lymphocytes # (A) 1.45 X 10*3/uL (0.90-5.00); Lymphocytes % (A) 19.4 %; MCHC 32.2 g/dL (32.0-37.0); MCV 96.2 FL (80.0-97.0); Mean Platelet Volume 10.8 FL (9.5-12.2); Monocytes # (A) 0.53 X 10*3/uL (0.20-1.00); Monocytes % (A) 7.1 %; NRBC Per 100 WBC 0 X 10*3/uL (0.00-0.01); Neutrophils % (A) 68.4 %; Platelet Count 241 X 10*3/uL (140-440); RDW 12.9 % (11.5-14.5); WBC 7.46 X 10*3/uL (4.50-10.00)
[2023-09-12 11:29] LABS: BUN/Creat Ratio <5.83 Ratio (12.00-20.00); Blood Urea Nitrogen <3.5 mg/dL (9.0-27.0); Calcium 8.3 mg/dL (8.7-10.3); Carbon Dioxide 24.5 mmol/L (21.6-31.8); Chloride 106 mmol/L (96-109); Glucose 190 mg/dL (70-110); Magnesium 1.8 mg/dL (1.5-2.4); Potassium 3.9 mmol/L (3.5-5.5); Sodium 141 mmol/L (135-145)
[2023-09-12] MEDS: IV FLUID CONTINUATION 1,000 ML IV ONE (12:12)
[2023-09-12] MEDS ORDERED: PROPOFOL 10 MG/ML 20 ML VIAL IV ONE (12:13)
--- NOTE | 2023-09-12 12:24 | P.PCN ---
Date of Procedure: 09/12/23 Procedure(s) Performed: Preoperative Dx: Intractable vomiting Postoperative Dx: Gastritis Procedure: EGD with Bx Anesthesia: Sedation Endoscopist: Dr. Sánchez Specimens: Antrum Endoscopic Procedure: The patient was on the endoscopy table in the left decubitus position. The Olympus gastroscope was inserted into the oropharynx and passed under direct visualization to the region of the third portion of the duodenum. From that point the scope was slowly withdrawn inspecting all surfaces carefully. There were no neoplastic inflammatory or polypoid lesions throughout the duodenum. The pylorus was widely patent. The stomach was carefully inspected. There was gastritis present without ulcerations. A biopsy of the antrum took place to rule out H. pylori. Retroflexion revealed a normal hiatus. The esophagus was then carefully examined. There were no neoplastic inflammatory or polypoid lesions throughout the visualized esophagus. The patient was then taken to the recovery room in stable condition per anesthesia guidelines. Recommendations: Resume diet. Begin antiacids. May discharge if tolerates. Etiology for intractable vomiting could be related to longstanding diabetes and gastroparesis. Outpatient gastric emptying study or GI consult would be a viable options if symptoms persist.
[2023-09-12 12:36] LABS: Glucose,Whole Blood 156 mg/dL (70-110)
--- NOTE | 2023-09-12 13:45 | P.DS ---
Providers Date of admission: 09/10/23 22:12 Attending physician: Bal Taylor MD Consults: 09/11/23 02:22 Consult Physician Routine Consulting Provider: Tong Sánchez Reason/Comments: ileus Do you want consulting provider notified?: Yes Primary care physician: Physician Nonstaff Hospital Course: Discharge diagnosis Intractable nausea vomiting could be due to gastroparesis Type 2 diabetes mellitus Gastritis Hospital course Patient is a 58-year-old female with a past medical history of diabetes mellitus who comes into the ED with nausea vomiting abdominal pain. Patient had a CT scan that showed findings consistent with jejunitis and ileus. Patient had an EGD done that showed gastritis. At the time of discharge patient reported that her abdominal pain nausea vomiting had resolved and she wanted to go home. Patient was instructed to follow with GI outpatient for gastroparesis workup. Patient will resume her Pepcid 20 mg twice daily for the gastritis. Physical exam General examination - Alert and Oriented 3 in NAD Heart - + S1S2 no murmurs Lungs - Clear to auscultation Abdomen soft NT ND +ve BS Extremities - No edema ADVOCACY DIRECTOR - Moving all 4 extremities spontaneously Psych - Calm and cooperative Patient Condition at Discharge: Fair Plan - Discharge Summary Discharge Rx Participant: Yes New Discharge Prescriptions: Continue Ondansetron Odt [Zofran ODT] 4 mg PO Q8HR PRN PRN Reason: Nausea And Vomiting Thyroid,Pork [Senior Investigator Thyroid] 60 mg PO DAILY Promethazine HCl 25 mg PO Q4H PRN PRN Reason: Nausea And Vomiting INSULIN ASPART (NovoLOG) [NovoLOG (formulary)] 10 unit SQ AC-TID Zolpidem [Ambien] 10 mg PO HS Insulin Glargine-Yfgn [Semglee (Yfgn) Pen] 20 unit SQ HS Famotidine [Pepcid] 20 mg PO BID PRN PRN Reason: Gi Upset Escitalopram [Lexapro] 20 mg PO DAILY Atorvastatin [Lipitor] 10 mg PO DAILY Discharge Medication List Atorvastatin [Lipitor] 10 mg PO DAILY 09/11/23 [History] Escitalopram [Lexapro] 20 mg PO DAILY 09/11/23 [History] Famotidine [Pepcid] 20 mg PO BID PRN 09/11/23 [History] INSULIN ASPART (NovoLOG) [NovoLOG (formulary)] 10 unit SQ AC-TID 09/11/23 [History] Insulin Glargine-Yfgn [Semglee (Yfgn) Pen] 20 unit SQ HS 09/11/23 [History] Ondansetron Odt [Zofran ODT] 4 mg PO Q8HR PRN 09/11/23 [History] Promethazine HCl 25 mg PO Q4H PRN 09/11/23 [History] Thyroid,Pork [Senior Investigator Thyroid] 60 mg PO DAILY 09/11/23 [History] Zolpidem [Ambien] 10 mg PO HS 09/11/23 [History] Follow up Appointment(s)/Referral(s): Nonstaff,Physician [Primary Care Provider] - 1-2 days Marie Paige MD [STAFF PHYSICIAN] - 1 Week Discharge Disposition: HOME SELF-CARE
[2023-09-12 15:41] VITALS: BP 133/75; PULSE 75
== END 2023-09-12 14:38 | disposition home or self-care (01) ==
LOC: EC 17:33 → 6NMEDSUR 22:12
PROVIDERS: ADMIT Internal Medicine; ATTEND Internal Medicine
DX: K29.50 Unspecified chronic gastritis without bleeding (principal); K52.9 Noninfective gastroenteritis and colitis, unspecified; K56.7 Ileus, unspecified; E86.0 Dehydration; E11.9 Type 2 diabetes mellitus without complications; K21.9 Gastro-esophageal reflux disease without esophagitis; E78.5 Hyperlipidemia, unspecified; E03.9 Hypothyroidism, unspecified; Z79.4 Long term (current) use of insulin; Z79.890 Hormone replacement therapy; Z79.899 Other long term (current) drug therapy; Z87.891 Personal history of nicotine dependence
CPT/HCPCS: 96376 ×3; 96372 ×2; 96361 ×2; 96365; 96375 ×2; 99285; 36415; 88305; 80053 ×2; 80048; 82150; 83605; 83690; 83735 ×3; 84100 ×2; 84484; 85025 ×3; 85610; 81001; 87040; 83036; 71275; 74177; 43239; G0378 ×3; J1200; J0780; J1644 ×2; J3360; J2405 ×3; J0696 ×2; J1170 ×3; J2704; C9113 ×2; Q9967; J1836 ×2

== ENCOUNTER 2023-10-01 08:27 | Emergency (ER) | payer BC ==
--- NOTE | 2023-10-01 09:06 | ED ---
General Adult HPI - General Chief complaint: Nausea/Vomiting/Diarrhea Stated complaint: Vomiting Time Seen by Provider: 10/01/23 08:35 Source: patient, RN notes reviewed, old records reviewed Mode of arrival: ambulatory Limitations: no limitations - History of Present Illness Initial comments: This is a 58-year-old female who presents to the emergency department with a past medical history significant for cyclic vomiting. Patient started feeling off yesterday and then started vomiting today and she cannot stop. Patient does smoke marijuana on a regular basis. Patient does not believe that the problem. Patient states it is from back surgery that somehow put metal into her system. Patient denies any significant abdominal pain it is more nausea and cramping. Patient Nuys back pain. Patient has any fever or chills. Patient Nuys any chest pain or difficulty breathing - Related Data Home Medications Medication Instructions Recorded Confirmed Atorvastatin [Lipitor] 10 mg PO DAILY 09/11/23 09/11/23 Escitalopram [Lexapro] 20 mg PO DAILY 09/11/23 09/11/23 Famotidine [Pepcid] 20 mg PO BID PRN 09/11/23 09/11/23 INSULIN ASPART (NovoLOG) [NovoLOG 10 unit SQ AC-TID 09/11/23 09/11/23 (formulary)] Insulin Glargine-Yfgn [Semglee 20 unit SQ HS 09/11/23 09/11/23 (Yfgn) Pen] Ondansetron Odt [Zofran ODT] 4 mg PO Q8HR PRN 09/11/23 09/11/23 Promethazine HCl 25 mg PO Q4H PRN 09/11/23 09/11/23 Thyroid,Pork [Hairspring I Inspector Thyroid] 60 mg PO DAILY 09/11/23 09/11/23 Zolpidem [Ambien] 10 mg PO HS 09/11/23 09/11/23 Allergies Allergy/AdvReac Type Severity Reaction Status Date / Time No Known Allergies Allergy Verified 10/01/23 08:36 Review of Systems ROS Statement: Those systems with pertinent positive or pertinent negative responses have been documented in the HPI. ROS Other: All systems not noted in ROS Statement are negative. Past Medical History Past Medical History: Diabetes Mellitus History of Any Multi-Drug Resistant Organisms: None Reported Past Surgical History: Back Surgery, Cholecystectomy, Hysterectomy, Orthopedic Surgery, Tonsillectomy Additional Past Surgical History / Comment(s): bilateral foot sx- mortons neuroma removal, Past Anesthesia/Blood Transfusion Reactions: Postoperative Nausea & Vomiting (PONV) Past Psychological History: No Psychological Hx Reported Smoking Status: Never smoker Past Alcohol Use History: Occasional Past Drug Use History: Marijuana - Past Family History Mother Family Medical History: Cancer Additional Family Medical History / Comment(s): breast cancer Father Additional Family Medical History / Comment(s): AAA General Exam - General Exam Comments Initial Comments: GENERAL: Patient is well-developed and well-nourished. Patient is nontoxic and well- hydrated and is in mild distress. ENT: Neck is soft and supple. No significant lymphadenopathy is noted. Oropharynx is clear. Moist mucous membranes. Neck has full range of motion without eliciting any pain. EYES: The sclera were anicteric and conjunctiva were pink and moist. Extraocular movements were intact and pupils were equal round and reactive to light. Eyelids were unremarkable. PULMONARY: Unlabored respirations. Good breath sounds bilaterally. No audible rales rhonchi or wheezing was noted. CARDIOVASCULAR: There is a regular rate and rhythm without any murmurs gallops or rubs. ABDOMEN: Soft and nontender with normal bowel sounds. SKIN: Skin is clear with no lesions or rashes and otherwise unremarkable. NEUROLOGIC: Patient is alert and oriented x3. Cranial nerves II through XII are grossly intact. Motor and sensory are also intact. Normal speech, volume and content. Symmetrical smile. MUSCULOSKELETAL: Normal extremities with adequate strength and full range of motion. LYMPHATICS: No significant lymphadenopathy is noted PSYCHIATRIC: Normal psychiatric evaluation. Limitations: no limitations Course Vital Signs 10/01/23 10/01/23 08:32 11:16 Temperature 98.6 F 98.6 F Pulse Rate 122 H 105 H Respiratory 22 16 Rate Blood Pressure 131/98 187/101 O2 Sat by Pulse 98 95 Oximetry Medical Decision Making - Medical Decision Making EKG is interpreted by myself but EKG shows a sinus tachycardia at 112 bpm parables 158 QRS is 82 QT interval 318 QTc is 384. Patient's EKG is of poor quality but shows no obvious ST segment elevation Was pt. sent in by a medical professional or institution (, PA, INSIDE SALES ADMINISTRATOR, urgent care, hospital, or fdc...) When possible be specific @ -No Did you speak to anyone other than the patient for history (EMS, parent, family, police, friend...)? What history was obtained from this source @ -No Did you review nursing and triage notes (agree or disagree)? Why? @ -I reviewed and agree with nursing and triage notes Were old charts reviewed (outside hosp., previous admission, EMS record, old EKG, old radiological studies, urgent care reports/EKG's, fdc records)? Report findings @ -No old charts were reviewed Differential Diagnosis (chest pain, altered mental status, abdominal pain women, abdominal pain men, vaginal bleeding, weakness, fever, dyspnea, syncope, headache, dizziness, GI bleed, back pain, seizure, CVA, palpatations, mental health, musculoskeletal)? @ -Cyclic vomiting, gastritis, gastroenteritis, viral syndrome, pancreatitis, DKA, this is not an all-inclusive list EKG interpreted by me (3pts min.). @ -As above X-rays interpreted by me (1pt min.). @ -None done CT interpreted by me (1pt min.). @ -None done U/S interpreted by me (1pt. min.). @ -None done What testing was considered but not performed or refused? (CT, X-rays, U/S, labs)? Why? @ -None What meds were considered but not given or refused? Why? @ -None Did you discuss the management of the patient with other professionals (professionals i.e. , PA, INSIDE SALES ADMINISTRATOR, lab, RT, psych nurse, drug abuse social worker, cut out worker, teacher, major gifts officer, shelter case manager)? Give summary @ -No Was smoking cessation discussed for >3mins.? @ -No Was critical care preformed (if so, how long)? @ -No Were there social determinants of health that impacted care today? How? (Homel essness, low income, unemployed, alcoholism, drug addiction, transportation, low edu. Level, literacy, decrease access to med. care, skilled nursing, rehab)? @ -No Was there de-escalation of care discussed even if they declined (Discuss DNR or withdrawal of care, Hospice)? DNR status @ -No What co-morbidities impacted this encounter? (DM, HTN, Smoking, COPD, CAD, Cancer, CVA, ARF, Chemo, Hep., AIDS, mental health diagnosis, sleep apnea, morbid obesity)? @ -None Was patient admitted / discharged? Hospital course, mention meds given and route, prescriptions, significant lab abnormalities, going to OR and other pertinent info. @ -Patient is given 2 L of fluid and droperidol which stopped her vomiting almo st completely however she had 1 more episode so she was given Zofran and Ativan and she slept for the next few hours that woke her back up and she felt better and was willing to be discharged home. Patient's insulin was 400 and she was given NovoLog. Undiagnosed new problem with uncertain prognosis? @ -No Drug Therapy requiring intensive monitoring for toxicity (Heparin, Nitro, Insulin, Cardizem)? @ -No Were any procedures done? @ -No Diagnosis/symptom? @ -Cyclic vomiting Acute, or Chronic, or Acute on Chronic? @ -Acute Uncomplicated (without systemic symptoms) or Complicated (systemic symptoms)? @ -Complicated Side effects of treatment? @ -No Exacerbation, Progression, or Severe Exacerbation? @ -No Poses a threat to life or bodily function? How? (Chest pain, [place], [place], pneumonia, PE, COPD, DKA, ARF, appy, cholecystitis, CVA, Diverticulitis, Homicidal, Suicidal, threat to staff... and all critical care pts) @ -No - Lab Data Result diagrams: 10/01/23 09:11 10/01/23 09:11 Lab Results 10/01/23 10/01/23 10/01/23 Range/Units 09:11 09:11 09:11 WBC 11.8 H (3.8-10.6) k/uL RBC 5.24 (3.80-5.40) m/uL Hgb 16.5 H D (11.4-16.0) gm/dL Hct 51.7 H (34.0-46.0) % MCV 98.8 (80.0-100.0) fL MCH 31.4 (25.0-35.0) pg MCHC 31.8 (31.0-37.0) g/dL RDW 12.9 (11.5-15.5) % Plt Count 310 (150-450) k/uL MPV 10.0 Neutrophils % 89 % Lymphocytes % 7 % Monocytes % 2 % Eosinophils % 0 % Basophils % 1 % Neutrophils # 10.4 H (1.3-7.7) k/uL Lymphocytes # 0.9 L (1.0-4.8) k/uL Monocytes # 0.3 (0-1.0) k/uL Eosinophils # 0.0 (0-0.7) k/uL Basophils # 0.1 (0-0.2) k/uL Sodium 135 L (137-145) mmol/L Potassium 4.4 (3.5-5.1) mmol/L Chloride 102 (98-107) mmol/L Carbon Dioxide 19 L (22-30) mmol/L Anion Gap 14 mmol/L BUN 11 (7-17) mg/dL Creatinine 0.56 (0.52-1.04) mg/dL Est GFR (CKD-EPI)AfAm >90 (>60 ml/min/1.73 sqM) Est GFR (CKD-EPI)NonAf >90 (>60 ml/min/1.73 sqM) Glucose 420 H (74-99) mg/dL POC Glucose (mg/dL) (70-110) mg/dL POC Glu Fish Trapper ID Calcium 9.7 (8.4-10.2) mg/dL Total Bilirubin 0.7 (0.2-1.3) mg/dL AST 27 (14-36) U/L ALT 24 (4-34) U/L Alkaline Phosphatase 174 H (38-126) U/L Total Protein 7.5 (6.3-8.2) g/dL Albumin 4.8 (3.5-5.0) g/dL Amylase 142 H (30-110) U/L Lipase 476 H (23-300) U/L Acetone, Qual Positive (Negative) 10/01/23 Range/Units 10:42 WBC (3.8-10.6) k/uL RBC (3.80-5.40) m/uL Hgb (11.4-16.0) gm/dL Hct (34.0-46.0) % MCV (80.0-100.0) fL MCH (25.0-35.0) pg MCHC (31.0-37.0) g/dL RDW (11.5-15.5) % Plt Count (150-450) k/uL MPV Neutrophils % % Lymphocytes % % Monocytes % % Eosinophils % % Basophils % % Neutrophils # (1.3-7.7) k/uL Lymphocytes # (1.0-4.8) k/uL Monocytes # (0-1.0) k/uL Eosinophils # (0-0.7) k/uL Basophils # (0-0.2) k/uL Sodium (137-145) mmol/L Potassium (3.5-5.1) mmol/L Chloride (98-107) mmol/L Carbon Dioxide (22-30) mmol/L Anion Gap mmol/L BUN (7-17) mg/dL Creatinine (0.52-1.04) mg/dL Est GFR (CKD-EPI)AfAm (>60 ml/min/1.73 sqM) Est GFR (CKD-EPI)NonAf (>60 ml/min/1.73 sqM) Glucose (74-99) mg/dL POC Glucose (mg/dL) 352 H (70-110) mg/dL POC Glu Fish Trapper ID Calcium (8.4-10.2) mg/dL Total Bilirubin (0.2-1.3) mg/dL AST (14-36) U/L ALT (4-34) U/L Alkaline Phosphatase (38-126) U/L Total Protein (6.3-8.2) g/dL Albumin (3.5-5.0) g/dL Amylase (30-110) U/L Lipase (23-300) U/L Acetone, Qual (Negative) Disposition Clinical Impression: Cyclic vomiting syndrome, Hyperglycemia Disposition: HOME SELF-CARE Instructions (If sedation given, give patient instructions): Cyclic Vomiting Syndrome (ED) Is patient prescribed a controlled substance at d/c from ED?: No Referrals: None,Stated [Primary Care Provider] - 1-2 days Time of Disposition: 12:14
[2023-10-01] MEDS: SODIUM CHLORIDE 0.9% 2,000 ML IV STA (09:14)
[2023-10-01] MEDS: droPERidol 5 MG/2 ML VIAL IVP ONE (09:14)
[2023-10-01 09:28] LABS: ALT 24 U/L (4-34); AST 27 U/L (14-36); African American GFR (CKD) >90 (>60 ml/min/1.73 sqM); Albumin 4.8 g/dL (3.5-5.0); Alkaline Phosphatase 174 U/L (38-126); Amylase 142 U/L (30-110); Anion Gap 14 mmol/L; Blood Urea Nitrogen 11 mg/dL (7-17); Calcium 9.7 mg/dL (8.4-10.2); Carbon Dioxide 19 mmol/L (22-30); Chloride 102 mmol/L (98-107); Glucose 420 mg/dL (74-99); Lipase 476 U/L (23-300); Non-African American GFR(CKD) >90 (>60 ml/min/1.73 sqM); Potassium 4.4 mmol/L (3.5-5.1); Sodium 135 mmol/L (137-145); Total Bilirubin 0.7 mg/dL (0.2-1.3); Total Protein 7.5 g/dL (6.3-8.2)
[2023-10-01 10:07] LABS: Basophils # (A) 0.1 k/uL (0-0.2); Basophils % (A) 1 %; Eosinophils % (A) 0 %; HCT 51.7 % (34.0-46.0); Lymphocytes # (A) 0.9 k/uL (1.0-4.8); Lymphocytes % (A) 7 %; MCH 31.4 pg (25.0-35.0); MCHC 31.8 g/dL (31.0-37.0); MCV 98.8 fL (80.0-100.0); Monocytes # (A) 0.3 k/uL (0-1.0); Monocytes % (A) 2 %; Neutrophils # (A) 10.4 k/uL (1.3-7.7); Neutrophils % (A) 89 %; Platelet Count 310 k/uL (150-450); RBC 5.24 m/uL (3.80-5.40); RDW 12.9 % (11.5-15.5); WBC 11.8 k/uL (3.8-10.6)
[2023-10-01 10:15] LABS: HGB 16.5 gm/dL (11.4-16.0)
[2023-10-01 10:43] LABS: Glucose,Whole Blood 352 mg/dL (70-110)
[2023-10-01] MEDS: LORazepam 2 MG/ML INJ IV STA (10:44)
[2023-10-01] MEDS: KETOROLAC 15 MG/ML 1 ML VIAL IVP STA (10:44)
[2023-10-01] MEDS: ONDANSETRON 4 MG/2 ML VIAL IVP STA (10:45)
[2023-10-01 11:17] VITALS: RESP 16
[2023-10-01] MEDS: INSULIN ASPART (NovoLOG) 100 UNIT/ML VIAL SQ ONE (11:32)
[2023-10-01 12:38] VITALS: BP 149/78; PULSE 79; TEMP 98.2
== END 2023-10-01 12:37 | disposition home or self-care (01) ==
LOC: EC 08:27
DX: R11.15 Cyclical vomiting syndrome unrelated to migraine (principal); R73.9 Hyperglycemia, unspecified; Z90.49 Acquired absence of other specified parts of digestive tract
CPT/HCPCS: 36415; 93005; 80053; 82150; 82009; 83690; 85025; 99284; 96374; 96375 ×3; 96361; J2060; J2405; J1885; J1790

== ENCOUNTER 2023-10-02 14:00 | Emergency (ER) | payer BC ==
[2023-10-02 14:14] VITALS: TEMP 98.2
--- NOTE | 2023-10-02 14:39 | ED ---
General Adult HPI - General Chief complaint: Abdominal Pain Stated complaint: abd pain,vomiting Time Seen by Provider: 10/02/23 14:18 Source: patient, RN notes reviewed Mode of arrival: ambulatory Limitations: no limitations - History of Present Illness Initial comments: This is a 58-year-old female with past medical history of cyclical vomiting and gastritis who presents emergency department chief complaint of epigastric discomfort and vomiting. Patient was seen in the emergency department yesterday on 10/01/2023 with similar symptoms. Patient states that her symptoms mildly resolved after discharge states that she is still experiencing nausea and vomiting. Patient was seen in the emergency department for similar symptoms a EGD was completed on 09/11 which revealed gastritis. Patient is requesting Dilaudid pain medication at this time. She denies chest pain, or palpitations, dizziness, lightheadedness. Denies urinary symptoms. - Related Data Home Medications Medication Instructions Recorded Confirmed Atorvastatin [Lipitor] 10 mg PO DAILY 09/11/23 09/11/23 Escitalopram [Lexapro] 20 mg PO DAILY 09/11/23 09/11/23 Famotidine [Pepcid] 20 mg PO BID PRN 09/11/23 09/11/23 INSULIN ASPART (NovoLOG) [NovoLOG 10 unit SQ AC-TID 09/11/23 09/11/23 (formulary)] Insulin Glargine-Yfgn [Semglee 20 unit SQ HS 09/11/23 09/11/23 (Yfgn) Pen] Ondansetron Odt [Zofran ODT] 4 mg PO Q8HR PRN 09/11/23 09/11/23 Promethazine HCl 25 mg PO Q4H PRN 09/11/23 09/11/23 Thyroid,Pork [Cut Off Saw Operator Thyroid] 60 mg PO DAILY 09/11/23 09/11/23 Zolpidem [Ambien] 10 mg PO HS 09/11/23 09/11/23 Allergies Allergy/AdvReac Type Severity Reaction Status Date / Time No Known Allergies Allergy Verified 10/02/23 14:13 Review of Systems ROS Statement: Those systems with pertinent positive or pertinent negative responses have been documented in the HPI. ROS Other: All systems not noted in ROS Statement are negative. Past Medical History Past Medical History: Diabetes Mellitus History of Any Multi-Drug Resistant Organisms: None Reported Past Surgical History: Back Surgery, Cholecystectomy, Hysterectomy, Orthopedic Surgery, Tonsillectomy Additional Past Surgical History / Comment(s): bilateral foot sx- mortons neuroma removal, Past Anesthesia/Blood Transfusion Reactions: Postoperative Nausea & Vomiting (PONV) Past Psychological History: No Psychological Hx Reported Smoking Status: Never smoker Past Alcohol Use History: Occasional Past Drug Use History: Marijuana - Past Family History Mother Family Medical History: Cancer Additional Family Medical History / Comment(s): breast cancer Father Additional Family Medical History / Comment(s): AAA General Exam Limitations: no limitations General appearance: alert, in no apparent distress Head exam: Present: atraumatic, normocephalic, normal inspection Eye exam: Present: normal appearance, PERRL, EOMI. Absent: scleral icterus, conjunctival injection, periorbital swelling ENT exam: Present: normal exam, mucous membranes moist Neck exam: Present: normal inspection. Absent: tenderness, meningismus, lymphadenopathy Respiratory exam: Present: normal lung sounds bilaterally. Absent: respiratory distress, wheezes, rales, rhonchi, stridor Cardiovascular Exam: Present: regular rate, normal rhythm, normal heart sounds. Absent: systolic murmur, diastolic murmur, rubs, gallop, clicks GI/Abdominal exam: Present: soft, tenderness (epigastric), hyperactive bowel sounds. Absent: distended, guarding, rebound, rigid Extremities exam: Present: normal inspection, full ROM, normal capillary refill. Absent: tenderness, pedal edema, joint swelling, calf tenderness Back exam: Present: normal inspection Neurological exam: Present: alert, oriented X3, CN II-XII intact Course Vital Signs 10/02/23 10/02/23 14:11 17:38 Temperature 98.2 F Pulse Rate 122 H 111 H Respiratory 24 18 Rate Blood Pressure 130/82 124/73 O2 Sat by Pulse 99 98 Oximetry Medical Decision Making - Medical Decision Making Was pt. sent in by a medical professional or institution (, PA, TRAVELING AUDITOR, urgent care, hospital, or fdc...) When possible be specific @ -No Did you speak to anyone other than the patient for history (EMS, parent, family, police, friend...)? What history was obtained from this source @ -No Did you review nursing and triage notes (agree or disagree)? Why? @ -I reviewed and agree with nursing and triage notes Were old charts reviewed (outside hosp., previous admission, EMS record, old EKG, old radiological studies, urgent care reports/EKG's, fdc records)? Report findings @ -I reviewed the patient's chart note from 10/01/2023 where she presented to the emergency department with similar symptoms that brought her in today. Patient's laboratory results are grossly unremarkable. Is also noted that patient symptoms improved after administration of 2 L of fluid and droperidol. Differential Diagnosis (chest pain, altered mental status, abdominal pain women, abdominal pain men, vaginal bleeding, weakness, fever, dyspnea, syncope, headac he, dizziness, GI bleed, back pain, seizure, CVA, palpatations, mental health, musculoskeletal)? @ -Differential Abdominal Pain Women: Appendicitis, Cholecystitis, diverticulosis, ischemic bowel, pancreatitis, hepatitis, UTI, gastroenteritis, AAA, incarcerated hernia, bowel obstruction, constipation, inflammatory bowel, hepatitis, peptic ulcer disease, splenic infarction, perforated viscus, vulvitis, ovarian torsion, PID, kidney stone, placenta abruption, this is not meant to be an all-inclusive list EKG interpreted by me (3pts min.). @ -None X-rays interpreted by me (1pt min.). @ -None done CT interpreted by me (1pt min.). @ -None done U/S interpreted by me (1pt. min.). @ -None done What testing was considered but not performed or refused? (CT, X-rays, U/S, labs)? Why? @ -None What meds were considered but not given or refused? Why? @ -None Did you discuss the management of the patient with other professionals (professionals i.e. , PA, TRAVELING AUDITOR, lab, RT, psych nurse, health care social worker, back panel padder, teacher, community chest officer, telephonic nurse case manager)? Give summary @ -No Was smoking cessation discussed for >3mins.? @ -No Was critical care preformed (if so, how long)? @ -No Were there social determinants of health that impacted care today? How? (Homelessness, low income, unemployed, alcoholism, drug addiction, transportation, low edu. Level, literacy, decrease access to med. care, usp, rehab)? @ -No Was there de-escalation of care discussed even if they declined (Discuss DNR or withdrawal of care, Hospice)? DNR status @ -No What co-morbidities impacted this encounter? (DM, HTN, Smoking, COPD, CAD, Cancer, CVA, ARF, Chemo, Hep., AIDS, mental health diagnosis, sleep apnea, morbid obesity)? @ -None Was patient admitted / discharged? Hospital course, mention meds given and route, prescriptions, significant lab abnormalities, going to OR and other pertinent info. @ -58-year-old female with epigastric abdominal pain, nausea and vomiting. On my examination there were no signs of rebound tenderness or rigidity to the abdomen, soft and nontender. Patient will be symptomatically treated with IV fluids addition to Zofran and Toradol. Labs will be ordered. CBC reveals mild leukocytosis of 14.6 and elevated neutrophils of 13. CMP hyponatremia 134, acidosis 15 CO2. Glucose 310. Evaluation, patient is requesting further pain medication and states that Toradol has not aided symptom relief. However patient has not had any episodes of emesis since being in the emergency department. Patient was given droperidol and Benadryl patient to 8 units of insulin for hyperglycemia 310. Reevaluation patient is comfortably resting and asleep. Social with patient at bedside recommend establishing care with a primary care provider in this area due to patient stating she is recently moved here for the summer for further evaluation and intervention. Patient has Zofran at home to take as needed for nausea and vomiting. All questions answered at bedside and strict return parameters have discussed with the patient which she has verbalized understanding. Discussed with my attending Dr. Contreras Undiagnosed new problem with uncertain prognosis? @ -No Drug Therapy requiring intensive monitoring for toxicity (Heparin, Nitro, Insulin, Cardizem)? @ -No Were any procedures done? @ -No Diagnosis/symptom? @ -Cyclical vomiting syndrome, nausea and vomiting, hyperglycemia Acute, or Chronic, or Acute on Chronic? @ -acute Uncomplicated (without systemic symptoms) or Complicated (systemic symptoms)? @ -uncomplicated Side effects of treatment? @ -No Exacerbation, Progression, or Severe Exacerbation? @ -No Poses a threat to life or bodily function? How? (Chest pain, [place], [place], pneumonia, PE, COPD, DKA, ARF, appy, cholecystitis, CVA, Diverticulitis, Homicidal, Suicidal, threat to staff... and all critical care pts) @ -No - Lab Data Result diagrams: 06/17/24 14:41 10/02/23 15:41 Lab Results 10/02/23 10/02/23 Range/Units 14:41 15:41 WBC 14.6 H (3.8-10.6) k/uL RBC 5.06 (3.80-5.40) m/uL Hgb 15.8 (11.4-16.0) gm/dL Hct 50.4 H (34.0-46.0) % MCV 99.6 (80.0-100.0) fL MCH 31.2 (25.0-35.0) pg MCHC 31.4 (31.0-37.0) g/dL RDW 12.9 (11.5-15.5) % Plt Count 328 (150-450) k/uL MPV 8.7 Neutrophils % 89 % Lymphocytes % 7 % Monocytes % 2 % Eosinophils % 1 % Basophils % 0 % Neutrophils # 13.0 H (1.3-7.7) k/uL Lymphocytes # 1.1 (1.0-4.8) k/uL Monocytes # 0.3 (0-1.0) k/uL Eosinophils # 0.2 (0-0.7) k/uL Basophils # 0.0 (0-0.2) k/uL Sodium 134 L (137-145) mmol/L Potassium 4.4 (3.5-5.1) mmol/L Chloride 103 (98-107) mmol/L Carbon Dioxide 15 L (22-30) mmol/L Anion Gap 16 mmol/L BUN 10 (7-17) mg/dL Creatinine 0.67 (0.52-1.04) mg/dL Est GFR (CKD-EPI)AfAm >90 (>60 ml/min/1.73 sqM) Est GFR (CKD-EPI)NonAf >90 (>60 ml/min/1.73 sqM) Glucose 310 H (74-99) mg/dL Calcium 8.9 (8.4-10.2) mg/dL Total Bilirubin 1.0 (0.2-1.3) mg/dL AST 21 (14-36) U/L ALT 21 (4-34) U/L Alkaline Phosphatase 109 (38-126) U/L Total Protein 7.0 (6.3-8.2) g/dL Albumin 4.6 (3.5-5.0) g/dL Amylase 93 (30-110) U/L Lipase 164 (23-300) U/L Disposition Clinical Impression: Nausea & vomiting, Gastritis, Cyclic vomiting syndrome Disposition: HOME SELF-CARE Condition: Good Instructions (If sedation given, give patient instructions): Cyclic Vomiting Syndrome (ED) Additional Instructions: Return to the emergency department if your symptoms worsen or not improve. Recommend establishing care with a primary care provider within this area for further evaluation. Continue oral rehydration at home and use Zofran as needed. Is patient prescribed a controlled substance at d/c from ED?: No Referrals: Nonstaff,Physician [Primary Care Provider] - 1-2 days Time of Disposition: 17:31
[2023-10-02] MEDS: ONDANSETRON 4 MG/2 ML VIAL IVP STA (14:45)
[2023-10-02] MEDS: SODIUM CHLORIDE 0.9% 1,000 ML IV STA ×2 (14:45→15:18)
[2023-10-02] MEDS: KETOROLAC 15 MG/ML 1 ML VIAL IVP STA (14:48)
[2023-10-02] MEDS: PANTOPRAZOLE 40 MG/10 ML VIAL IVP STA (14:48)
[2023-10-02 14:54] LABS: Basophils % (A) 0 %; Eosinophils # (A) 0.2 k/uL (0-0.7); Eosinophils % (A) 1 %; HCT 50.4 % (34.0-46.0); HGB 15.8 gm/dL (11.4-16.0); Lymphocytes # (A) 1.1 k/uL (1.0-4.8); Lymphocytes % (A) 7 %; MCH 31.2 pg (25.0-35.0); MCHC 31.4 g/dL (31.0-37.0); MCV 99.6 fL (80.0-100.0); Mean Platelet Volume 8.7; Monocytes # (A) 0.3 k/uL (0-1.0); Monocytes % (A) 2 %; Neutrophils % (A) 89 %; Platelet Count 328 k/uL (150-450); RBC 5.06 m/uL (3.80-5.40); RDW 12.9 % (11.5-15.5); WBC 14.6 k/uL (3.8-10.6)
[2023-10-02] MEDS: droPERidol 5 MG/2 ML VIAL IVP ONE (15:53)
[2023-10-02] MEDS: diphenhydrAMINE 50 MG/ML 1 ML VIAL IVP STA (15:55)
[2023-10-02 16:10] LABS: ALT 21 U/L (4-34); AST 21 U/L (14-36); African American GFR (CKD) >90 (>60 ml/min/1.73 sqM); Albumin 4.6 g/dL (3.5-5.0); Alkaline Phosphatase 109 U/L (38-126); Amylase 93 U/L (30-110); Anion Gap 16 mmol/L; Blood Urea Nitrogen 10 mg/dL (7-17); Calcium 8.9 mg/dL (8.4-10.2); Carbon Dioxide 15 mmol/L (22-30); Chloride 103 mmol/L (98-107); Glucose 310 mg/dL (74-99); Lipase 164 U/L (23-300); Non-African American GFR(CKD) >90 (>60 ml/min/1.73 sqM); Potassium 4.4 mmol/L (3.5-5.1); Sodium 134 mmol/L (137-145)
[2023-10-02] MEDS: INSULIN ASPART (NovoLOG) 100 UNIT/ML VIAL SQ ONE (16:50)
[2023-10-02 17:39] VITALS: BP 124/73; PULSE 111; RESP 18
== END 2023-10-02 17:43 | disposition home or self-care (01) ==
LOC: EC 14:00
DX: K29.70 Gastritis, unspecified, without bleeding (principal); F12.90 Cannabis use, unspecified, uncomplicated
CPT/HCPCS: 36415; 80053; 82150; 83690; 85025; 99284; 96374; 96375 ×4; 96361 ×2; J1200; J2405; J1885; C9113; J1790

== ENCOUNTER 2023-10-07 17:20 | Emergency (ER) | payer BC ==
[2023-10-07 17:32] VITALS: BP 151/84; PULSE 91; RESP 22; TEMP 98.4
--- NOTE | 2023-10-07 17:51 | ED ---
General Adult HPI - General Source: patient, RN notes reviewed Mode of arrival: ambulatory Limitations: no limitations <Ailin Richter - Last Filed: 10/07/23 17:50> <Dov River - Last Filed: 10/07/23 21:32> - General Chief complaint: Abdominal Pain Stated complaint: NVD,Abd Pain Time Seen by Provider: 10/07/23 17:38 - History of Present Illness Initial comments: Quick note-this is a 58-year-old female presents emergency department chief complaint of epigastric abdominal pain, nausea, and vomiting over the past few days. Patient states that she was seen in the emergency department multiple times over the past month for similar complaints. She has taken Zofran at home with minimal relief. She denies chest pain, fevers, chills, body aches. (Ailin Richter) - Related Data Home Medications Medication Instructions Recorded Confirmed Atorvastatin [Lipitor] 10 mg PO DAILY 09/11/23 09/11/23 Escitalopram [Lexapro] 20 mg PO DAILY 09/11/23 09/11/23 Famotidine [Pepcid] 20 mg PO BID PRN 09/11/23 09/11/23 INSULIN ASPART (NovoLOG) [NovoLOG 10 unit SQ AC-TID 09/11/23 09/11/23 (formulary)] Insulin Glargine-Yfgn [Semglee 20 unit SQ HS 09/11/23 09/11/23 (Yfgn) Pen] Ondansetron Odt [Zofran ODT] 4 mg PO Q8HR PRN 09/11/23 09/11/23 Promethazine HCl 25 mg PO Q4H PRN 09/11/23 09/11/23 Thyroid,Pork [Tire Setter Thyroid] 60 mg PO DAILY 09/11/23 09/11/23 Zolpidem [Ambien] 10 mg PO HS 09/11/23 09/11/23 Allergies Allergy/AdvReac Type Severity Reaction Status Date / Time No Known Allergies Allergy Verified 10/07/23 17:32 Review of Systems ROS Other: All systems not noted in ROS Statement are negative. <Ailin Richter - Last Filed: 10/07/23 17:50> ROS Other: All systems not noted in ROS Statement are negative. <Dov River - Last Filed: 10/07/23 21:32> ROS Statement: Those systems with pertinent positive or pertinent negative responses have been documented in the HPI. Past Medical History Past Medical History: Diabetes Mellitus History of Any Multi-Drug Resistant Organisms: None Reported Past Surgical History: Back Surgery, Cholecystectomy, Hysterectomy, Orthopedic Surgery, Tonsillectomy Additional Past Surgical History / Comment(s): bilateral foot sx- mortons neuroma removal, Past Anesthesia/Blood Transfusion Reactions: Postoperative Nausea & Vomiting (PONV) Past Psychological History: No Psychological Hx Reported Smoking Status: Never smoker Past Alcohol Use History: Occasional Past Drug Use History: Marijuana - Past Family History Mother Family Medical History: Cancer Additional Family Medical History / Comment(s): breast cancer Father Additional Family Medical History / Comment(s): AAA <Ailin Richter - Last Filed: 10/07/23 17:50> General Exam Limitations: no limitations <Ailin Richter - Last Filed: 10/07/23 17:50> - General Exam Comments Initial Comments: Visual Physical Exam Vital signs reviewed General: Well-appearing, nontoxic, no acute distress. Head: Normocephalic, atraumatic Eyes: PERRLA, EOMI ENT: Airway patent Chest: Nonlabored breathing Skin: No visual rash, normal skin tone Neuro: Alert and oriented 3 Musculoskeletal: No gross abnormalities (Ailin Richter) Course Vital Signs 10/07/23 17:29 Temperature 98.4 F Pulse Rate 91 Respiratory 22 Rate Blood Pressure 151/84 O2 Sat by Pulse 97 Oximetry Medical Decision Making <Ailin Richter - Last Filed: 10/07/23 17:50> - Lab Data Result diagrams: 10/07/23 18:01 10/07/23 18:01 <Dov River - Last Filed: 10/07/23 21:32> - Medical Decision Making I completed the quick note portion of this chart signed Ailin Richter PA-C (Ailin Richter) 58-year-old female presented to the ED with complaints of abdominal pain with some associated nausea and vomiting. Patient received initial workup in triage however left AGAINST MEDICAL ADVICE prior to receiving further evaluation. (Dov River) - Lab Data Lab Results 10/07/23 10/07/23 Range/Units 18:01 18:01 WBC 9.7 (3.8-10.6) k/uL RBC 5.09 (3.80-5.40) m/uL Hgb 16.2 H (11.4-16.0) gm/dL Hct 50.9 H (34.0-46.0) % MCV 100.1 H (80.0-100.0) fL MCH 31.8 (25.0-35.0) pg MCHC 31.8 (31.0-37.0) g/dL RDW 12.8 (11.5-15.5) % Plt Count 307 (150-450) k/uL MPV 9.0 Neutrophils % 76 % Lymphocytes % 15 % Monocytes % 6 % Eosinophils % 1 % Basophils % 1 % Neutrophils # 7.4 (1.3-7.7) k/uL Lymphocytes # 1.5 (1.0-4.8) k/uL Monocytes # 0.5 (0-1.0) k/uL Eosinophils # 0.1 (0-0.7) k/uL Basophils # 0.1 (0-0.2) k/uL Sodium 133 L (137-145) mmol/L Potassium 4.6 (3.5-5.1) mmol/L Chloride 98 (98-107) mmol/L Carbon Dioxide 19 L (22-30) mmol/L Anion Gap 16 mmol/L BUN 12 (7-17) mg/dL Creatinine 0.65 (0.52-1.04) mg/dL Est GFR (CKD-EPI)AfAm >90 (>60 ml/min/1.73 sqM) Est GFR (CKD-EPI)NonAf >90 (>60 ml/min/1.73 sqM) Glucose 286 H (74-99) mg/dL Calcium 9.9 (8.4-10.2) mg/dL Magnesium 1.7 (1.6-2.3) mg/dL Total Bilirubin 1.2 (0.2-1.3) mg/dL AST 25 (14-36) U/L ALT 22 (4-34) U/L Alkaline Phosphatase 88 (38-126) U/L Total Protein 7.5 (6.3-8.2) g/dL Albumin 4.7 (3.5-5.0) g/dL Amylase 78 (30-110) U/L Lipase 125 (23-300) U/L Disposition <Ailin Richter - Last Filed: 10/07/23 17:50> <Dov River - Last Filed: 10/07/23 21:32> Clinical Impression: Nausea & vomiting Disposition: LEFT AGAINST MEDICAL ADVICE Referrals: Nonstaff,Physician [Primary Care Provider] - 1-2 days
[2023-10-07 18:20] LABS: Basophils # (A) 0.1 k/uL (0-0.2); Basophils % (A) 1 %; Eosinophils # (A) 0.1 k/uL (0-0.7); Eosinophils % (A) 1 %; HCT 50.9 % (34.0-46.0); HGB 16.2 gm/dL (11.4-16.0); Lymphocytes # (A) 1.5 k/uL (1.0-4.8); Lymphocytes % (A) 15 %; MCH 31.8 pg (25.0-35.0); MCHC 31.8 g/dL (31.0-37.0); MCV 100.1 fL (80.0-100.0); Monocytes # (A) 0.5 k/uL (0-1.0); Monocytes % (A) 6 %; Neutrophils # (A) 7.4 k/uL (1.3-7.7); Neutrophils % (A) 76 %; Platelet Count 307 k/uL (150-450); RBC 5.09 m/uL (3.80-5.40); RDW 12.8 % (11.5-15.5); WBC 9.7 k/uL (3.8-10.6)
[2023-10-07 19:01] LABS: ALT 22 U/L (4-34); AST 25 U/L (14-36); African American GFR (CKD) >90 (>60 ml/min/1.73 sqM); Albumin 4.7 g/dL (3.5-5.0); Alkaline Phosphatase 88 U/L (38-126); Amylase 78 U/L (30-110); Anion Gap 16 mmol/L; Blood Urea Nitrogen 12 mg/dL (7-17); Calcium 9.9 mg/dL (8.4-10.2); Carbon Dioxide 19 mmol/L (22-30); Chloride 98 mmol/L (98-107); Glucose 286 mg/dL (74-99); Lipase 125 U/L (23-300); Magnesium 1.7 mg/dL (1.6-2.3); Non-African American GFR(CKD) >90 (>60 ml/min/1.73 sqM); Sodium 133 mmol/L (137-145); Total Bilirubin 1.2 mg/dL (0.2-1.3); Total Protein 7.5 g/dL (6.3-8.2)
[2023-10-07 19:13] LABS: Potassium 4.6 mmol/L (3.5-5.1)
[2023-10-07] MEDS ORDERED: ONDANSETRON 4 MG/2 ML VIAL IVP STA (20:46)
[2023-10-07] MEDS ORDERED: KETOROLAC 15 MG/ML 1 ML VIAL IVP STA (20:46)
[2023-10-07] MEDS ORDERED: ACETAMINOPHEN TAB 500 MG TAB PO STA (20:46)
[2023-10-07] MEDS ORDERED: SODIUM CHLORIDE 0.9% 1,000 ML BAG IV STA (20:47)
[2023-10-07] MEDS ORDERED: droPERidol 5 MG/2 ML VIAL IVP ONE (20:47)
== END 2023-10-07 21:31 | disposition left against medical advice (07) ==
LOC: EC 17:20
DX: R11.2 Nausea with vomiting, unspecified (principal); Z53.29 Procedure and treatment not carried out because of patient's decision for other reasons; Z90.49 Acquired absence of other specified parts of digestive tract
CPT/HCPCS: 36415; 80053; 82150; 83690; 83735; 85025; 99283

== ENCOUNTER 2023-11-18 10:35 | Observation (INO) | payer BC ==
[2023-11-18 10:46] LABS: Glucose,Whole Blood 433 mg/dL (70-110)
[2023-11-18] MEDS: PANTOPRAZOLE 40 MG/10 ML VIAL IVP STA (11:18)
[2023-11-18] MEDS: ONDANSETRON 4 MG/2 ML VIAL IVP STA (11:19)
[2023-11-18] MEDS: FAMOTIDINE 20 MG/2 ML VIAL IV STA (11:20)
[2023-11-18] MEDS: SODIUM CHLORIDE 0.9% 2,000 ML IV STA (11:21)
--- NOTE | 2023-11-18 11:28 | ED ---
Abdominal Pain HPI - General Chief Complaint: Abdominal Pain Stated Complaint: Abd pain,vomiting Time Seen by Provider: 11/18/23 10:57 Source: patient, RN notes reviewed Mode of arrival: ambulatory Limitations: no limitations - History of Present Illness Initial Comments: This is a 58-year-old female who presents to the emergency department for abdominal pain, nausea, and vomiting. States that this started 4 days ago. Pain is in the epigastric region. States that she gets recurrent bouts of gastritis causing the same symptoms. Her blood sugar has also been in the 400s- 500s. She is a type II diabetic but is dependent on insulin. She had an EGD a couple of months ago and was diagnosed with gastritis. Additionally, she reports intermittent bouts of chest pain over the last couple of days as well. Denies any shortness of breath. Denies any diarrhea or constipation. States that she had antibiotics recently switched for a UTI as well. MD Complaint: abdominal pain - Related Data Home Medications Medication Instructions Recorded Confirmed Atorvastatin [Lipitor] 10 mg PO DAILY 09/11/23 11/18/23 Escitalopram [Lexapro] 20 mg PO DAILY 09/11/23 11/18/23 INSULIN ASPART (NovoLOG) [NovoLOG See Protocol SQ AC-TID 09/11/23 11/18/23 (formulary)] Insulin Glargine-Yfgn [Semglee 20 unit SQ HS 09/11/23 11/18/23 (Yfgn) Pen] Ciprofloxacin HCl [Cipro] 500 mg PO BID 11/18/23 11/18/23 Ondansetron Odt [Zofran Odt] 8 mg PO TID 11/18/23 11/18/23 Allergies Allergy/AdvReac Type Severity Reaction Status Date / Time No Known Allergies Allergy Verified 11/18/23 13:20 Review of Systems ROS Statement: Those systems with pertinent positive or pertinent negative responses have been documented in the HPI. ROS Other: All systems not noted in ROS Statement are negative. Past Medical History Past Medical History: Diabetes Mellitus History of Any Multi-Drug Resistant Organisms: None Reported Past Surgical History: Back Surgery, Cholecystectomy, Hysterectomy, Orthopedic Surgery, Tonsillectomy Additional Past Surgical History / Comment(s): bilateral foot sx- mortons neuroma removal, Past Anesthesia/Blood Transfusion Reactions: Postoperative Nausea & Vomiting (PONV) Past Psychological History: No Psychological Hx Reported Smoking Status: Never smoker Past Alcohol Use History: Occasional Past Drug Use History: Marijuana - Past Family History Mother Family Medical History: Cancer Additional Family Medical History / Comment(s): breast cancer Father Additional Family Medical History / Comment(s): AAA General Exam Limitations: no limitations General appearance: alert, in distress Head exam: Present: atraumatic, normocephalic, normal inspection Respiratory exam: Present: normal lung sounds bilaterally. Absent: respiratory distress, wheezes, rales, rhonchi, stridor Cardiovascular Exam: Present: regular rate, normal rhythm, normal heart sounds. Absent: systolic murmur, diastolic murmur, rubs, gallop, clicks GI/Abdominal exam: Present: soft, tenderness (Epigastric), normal bowel sounds. Absent: distended Neurological exam: Present: alert, oriented X3, CN II-XII intact Psychiatric exam: Present: normal affect, normal mood Skin exam: Present: warm, dry, intact, normal color. Absent: rash Course Vital Signs 11/18/23 11/18/23 11/18/23 10:36 15:49 15:58 Temperature 98.3 F 98.2 F 98.2 F Pulse Rate 117 H 80 88 Respiratory 22 16 15 Rate Blood Pressure 81/54 131/83 O2 Sat by Pulse 98 97 97 Oximetry 11/18/23 11/18/23 11/18/23 16:00 16:10 16:20 Temperature Pulse Rate 83 74 74 Respiratory 14 16 18 Rate Blood Pressure 131/83 127/76 118/59 O2 Sat by Pulse 98 98 98 Oximetry 11/18/23 11/18/23 11/18/23 16:30 16:40 16:50 Temperature Pulse Rate 78 78 83 Respiratory 16 18 16 Rate Blood Pressure 118/59 116/73 116/73 O2 Sat by Pulse 98 95 97 Oximetry 11/18/23 11/18/23 11/18/23 17:00 17:10 17:20 Temperature Pulse Rate 75 78 79 Respiratory 17 16 15 Rate Blood Pressure 116/73 139/84 139/84 O2 Sat by Pulse 98 96 97 Oximetry 11/18/23 11/18/23 11/18/23 17:30 17:40 17:50 Temperature Pulse Rate 76 80 79 Respiratory 15 15 15 Rate Blood Pressure 139/84 144/86 144/86 O2 Sat by Pulse 98 97 97 Oximetry 11/18/23 11/18/23 11/18/23 18:00 18:10 18:20 Temperature Pulse Rate 75 74 82 Respiratory 15 15 15 Rate Blood Pressure 144/86 123/72 123/72 O2 Sat by Pulse 97 97 95 Oximetry 11/18/23 11/18/23 11/18/23 18:30 18:40 18:50 Temperature Pulse Rate 77 85 79 Respiratory 15 20 15 Rate Blood Pressure 123/72 116/71 116/71 O2 Sat by Pulse 94 L 99 99 Oximetry Medical Decision Making - Medical Decision Making This is a 58-year-old female who presents to the emergency department for abdominal pain, nausea, and vomiting. Was pt. sent in by a medical professional or institution? @ -No Did you speak to anyone other than the patient for history? @ -No Did you review nursing and triage notes? @ -Yes, and I agree, it is accurate with regards to the patient's symptoms. Were old charts reviewed? @ -No Differential Diagnosis? @ -Differential Abdominal Pain Women: Appendicitis, Cholecystitis, diverticulosis, ischemic bowel, pancreatitis, hepatitis, UTI, gastroenteritis, AAA, incarcerated hernia, bowel obstruction, constipation, inflammatory bowel, hepatitis, peptic ulcer disease, splenic infarction, perforated viscus, vulvitis, ovarian torsion, PID, kidney stone, placenta abruption, this is not meant to be an all-inclusive list EKG interpreted by me (3pts min.)? @ -EKG interpreted by me demonstrating the following: Sinus rhythm. Ventricular rate 92 bpm, ND interval 156 ms, QRS duration 82 ms, QTc 425 ms. X-rays interpreted by me (1pt min.)? @ -Chest x-ray obtained, my interpretation identifies no localized consolidations or infiltrates. CT interpreted by me (1pt min.)? @ -CT scan of the abdomen and pelvis obtained. My interpretation identifies no evidence of bowel wall thickening or free air. U/S interpreted by me (1pt. min.)? @ -Not obtained What testing was considered but not performed? (CT, X-rays, U/S, labs)? Why? @ -None What meds were considered but not given? Why? @ -None Did you discuss the management of the patient with other professionals? @ -Yes, Dr. Moreno, who accepts the patient for admission. Did you reconcile home meds? @ -Yes Was smoking cessation discussed for >3mins.? @ -No Was critical care preformed (if so, how long)? @ -Yes, >35 minutes Were there social determinants of health that impacted care today? How? (Homelessness, low income, unemployed, alcoholism, drug addiction, transportation, low edu. Level, literacy, decrease access to med. care, nursing home, rehab)? @ -No Was there de-escalation of care discussed even if they declined? (Discuss DNR or withdrawal of care, Hospice)? @ -No What co-morbidities impacted this encounter? (DM, HTN, Smoking, COPD, CAD, Cancer, CVA, Hep., AIDS, mental health diagnosis, sleep apnea, morbid obesity)? @ -DM Was patient admitted / discharged? @ -Admitted. Lab work demonstrates leukocytosis with a white blood cell count of 15.3. Lab work also consistent with the patient being in DKA. Blood sugar 435 with a bicarb of 13 and anion gap of 22. Acetone positive. She has mild hyperkalemia with a potassium of 5.4, which is hemolyzed. She has hyponatremia with a sodium of 127. However, when this is corrected to account for the hyperglycemia it is approximately 132. She did have bouts of chest pain, and troponin was 0.022. Chest x-ray reveals no acute process. CT scan of the abdomen and pelvis also reveals no acute findings. She was started on the DKA protocol. Her symptoms were also managed in terms of the pain, nausea, and vomiting. Serial troponins ordered due to the chest pain. Patient admitted to medicine for DKA. Case discussed with ED attending Dr. Munoz. Undiagnosed new problem with uncertain prognosis? @ -None Drug Therapy requiring intensive monitoring for toxicity (Heparin, Nitro, Insulin, Cardizem)? @ -Insulin Were any procedures done? @ -None Diagnosis/symptom? @ -DKA Acute, or Chronic, or Acute on Chronic? @ -Acute Uncomplicated (without systemic symptoms) or Complicated (systemic symptoms)? @ -Complicated Side effects of treatment? @ -None Exacerbation, Progression, or Severe Exacerbation] @ -Not applicable Poses a threat to life or bodily function? @ -Yes, can lead to - Lab Data Result diagrams: 11/18/23 11:25 11/18/23 17:31 Lab Results 11/18/23 11/18/23 11/18/23 Range/Units 10:45 11:25 11:25 WBC 15.3 H (3.8-10.6) k/uL RBC 5.39 (3.80-5.40) m/uL Hgb 17.1 H (11.4-16.0) gm/dL Hct 53.8 H (34.0-46.0) % MCV 99.8 (80.0-100.0) fL MCH 31.6 (25.0-35.0) pg MCHC 31.7 (31.0-37.0) g/dL RDW 12.7 (11.5-15.5) % Plt Count 383 (150-450) k/uL MPV 9.0 Neutrophils % 90 % Lymphocytes % 5 % Monocytes % 4 % Eosinophils % 1 % Basophils % 0 % Neutrophils # 13.7 H (1.3-7.7) k/uL Lymphocytes # 0.8 L (1.0-4.8) k/uL Monocytes # 0.5 (0-1.0) k/uL Eosinophils # 0.1 (0-0.7) k/uL Basophils # 0.0 (0-0.2) k/uL VBG pH (7.31-7.41) VBG pCO2 (37-51) mmHg VBG HCO3 (24-28) mmol/L Sodium 127 L (137-145) mmol/L Potassium 5.4 H (3.5-5.1) mmol/L Chloride 92 L (98-107) mmol/L Carbon Dioxide 13 L (22-30) mmol/L Anion Gap 22 mmol/L BUN 22 H (7-17) mg/dL Creatinine 0.79 (0.52-1.04) mg/dL Est GFR (CKD-EPI)AfAm >90 (>60 ml/min/1.73 sqM) Est GFR (CKD-EPI)NonAf 82 (>60 ml/min/1.73 sqM) Glucose 435 H (74-99) mg/dL POC Glucose (mg/dL) 433 H (70-110) mg/dL POC Glu Chief Chemist ID Timbo, Danii Lactic Ac Sepsis Rflx Plasma Lactic Acid Farooq (0.7-2.0) mmol/L Calcium 9.8 (8.4-10.2) mg/dL Phosphorus 4.5 (2.5-4.5) mg/dL Magnesium 2.1 (1.6-2.3) mg/dL Total Bilirubin 1.6 H (0.2-1.3) mg/dL AST 35 (14-36) U/L ALT 29 (4-34) U/L Alkaline Phosphatase 103 (38-126) U/L Troponin I (0.000-0.034) ng/mL Total Protein 8.2 (6.3-8.2) g/dL Albumin 5.2 H (3.5-5.0) g/dL Amylase 96 (30-110) U/L Lipase 295 (23-300) U/L Urine Color Urine Appearance (Clear) Urine pH (5.0-8.0) Ur Specific Horatio (1.001-1.035) Urine Protein (Negative) Urine Glucose (UA) (Negative) Urine Ketones (Negative) Urine Blood (Negative) Urine Nitrite (Negative) Urine Bilirubin (Negative) Urine Urobilinogen (<2.0) mg/dL Ur Leukocyte Esterase (Negative) Acetone, Qual Positive (Negative) 11/18/23 11/18/23 11/18/23 Range/Units 11:25 11:25 11:28 WBC (3.8-10.6) k/uL RBC (3.80-5.40) m/uL Hgb (11.4-16.0) gm/dL Hct (34.0-46.0) % MCV (80.0-100.0) fL MCH (25.0-35.0) pg MCHC (31.0-37.0) g/dL RDW (11.5-15.5) % Plt Count (150-450) k/uL MPV Neutrophils % % Lymphocytes % % Monocytes % % Eosinophils % % Basophils % % Neutrophils # (1.3-7.7) k/uL Lymphocytes # (1.0-4.8) k/uL Monocytes # (0-1.0) k/uL Eosinophils # (0-0.7) k/uL Basophils # (0-0.2) k/uL VBG pH (7.31-7.41) VBG pCO2 (37-51) mmHg VBG HCO3 (24-28) mmol/L Sodium (137-145) mmol/L Potassium (3.5-5.1) mmol/L Chloride (98-107) mmol/L Carbon Dioxide (22-30) mmol/L Anion Gap mmol/L BUN (7-17) mg/dL Creatinine (0.52-1.04) mg/dL Est GFR (CKD-EPI)AfAm (>60 ml/min/1.73 sqM) Est GFR (CKD-EPI)NonAf (>60 ml/min/1.73 sqM) Glucose (74-99) mg/dL POC Glucose (mg/dL) (70-110) mg/dL POC Glu Chief Chemist ID Lactic Ac Sepsis Rflx Plasma Lactic Acid Farooq 2.4 H* (0.7-2.0) mmol/L Calcium (8.4-10.2) mg/dL Phosphorus (2.5-4.5) mg/dL Magnesium (1.6-2.3) mg/dL Total Bilirubin (0.2-1.3) mg/dL AST (14-36) U/L ALT (4-34) U/L Alkaline Phosphatase (38-126) U/L Troponin I 0.022 (0.000-0.034) ng/mL Total Protein (6.3-8.2) g/dL Albumin (3.5-5.0) g/dL Amylase (30-110) U/L Lipase (23-300) U/L Urine Color Colorless Urine Appearance Clear (Clear) Urine pH 5.0 (5.0-8.0) Ur Specific Horatio 1.030 (1.001-1.035) Urine Protein Negative (Negative) Urine Glucose (UA) 4+ H (Negative) Urine Ketones 4+ H (Negative) Urine Blood Negative (Negative) Urine Nitrite Negative (Negative) Urine Bilirubin Negative (Negative) Urine Urobilinogen <2.0 (<2.0) mg/dL Ur Leukocyte Esterase Negative (Negative) Acetone, Qual (Negative) 11/18/23 11/18/23 11/18/23 Range/Units 12:16 13:10 13:27 WBC (3.8-10.6) k/uL RBC (3.80-5.40) m/uL Hgb (11.4-16.0) gm/dL Hct (34.0-46.0) % MCV (80.0-100.0) fL MCH (25.0-35.0) pg MCHC (31.0-37.0) g/dL RDW (11.5-15.5) % Plt Count (150-450) k/uL MPV Neutrophils % % Lymphocytes % % Monocytes % % Eosinophils % % Basophils % % Neutrophils # (1.3-7.7) k/uL Lymphocytes # (1.0-4.8) k/uL Monocytes # (0-1.0) k/uL Eosinophils # (0-0.7) k/uL Basophils # (0-0.2) k/uL VBG pH 7.28 L (7.31-7.41) VBG pCO2 30 L (37-51) mmHg VBG HCO3 14 L (24-28) mmol/L Sodium (137-145) mmol/L Potassium (3.5-5.1) mmol/L Chloride (98-107) mmol/L Carbon Dioxide (22-30) mmol/L Anion Gap mmol/L BUN (7-17) mg/dL Creatinine (0.52-1.04) mg/dL Est GFR (CKD-EPI)AfAm (>60 ml/min/1.73 sqM) Est GFR (CKD-EPI)NonAf (>60 ml/min/1.73 sqM) Glucose (74-99) mg/dL POC Glucose (mg/dL) 361 H (70-110) mg/dL POC Glu Chief Chemist ID Danii Kidd Lactic Ac Sepsis Rflx Y Plasma Lactic Acid Farooq (0.7-2.0) mmol/L Calcium (8.4-10.2) mg/dL Phosphorus (2.5-4.5) mg/dL Magnesium (1.6-2.3) mg/dL Total Bilirubin (0.2-1.3) mg/dL AST (14-36) U/L ALT (4-34) U/L Alkaline Phosphatase (38-126) U/L Troponin I (0.000-0.034) ng/mL Total Protein (6.3-8.2) g/dL Albumin (3.5-5.0) g/dL Amylase (30-110) U/L Lipase (23-300) U/L Urine Color Urine Appearance (Clear) Urine pH (5.0-8.0) Ur Specific Horatio (1.001-1.035) Urine Protein (Negative) Urine Glucose (UA) (Negative) Urine Ketones (Negative) Urine Blood (Negative) Urine Nitrite (Negative) Urine Bilirubin (Negative) Urine Urobilinogen (<2.0) mg/dL Ur Leukocyte Esterase (Negative) Acetone, Qual (Negative) 11/18/23 11/18/23 11/18/23 Range/Units 14:48 14:48 14:55 WBC (3.8-10.6) k/uL RBC (3.80-5.40) m/uL Hgb (11.4-16.0) gm/dL Hct (34.0-46.0) % MCV (80.0-100.0) fL MCH (25.0-35.0) pg MCHC (31.0-37.0) g/dL RDW (11.5-15.5) % Plt Count (150-450) k/uL MPV Neutrophils % % Lymphocytes % % Monocytes % % Eosinophils % % Basophils % % Neutrophils # (1.3-7.7) k/uL Lymphocytes # (1.0-4.8) k/uL Monocytes # (0-1.0) k/uL Eosinophils # (0-0.7) k/uL Basophils # (0-0.2) k/uL VBG pH (7.31-7.41) VBG pCO2 (37-51) mmHg VBG HCO3 (24-28) mmol/L Sodium (137-145) mmol/L Potassium (3.5-5.1) mmol/L Chloride (98-107) mmol/L Carbon Dioxide (22-30) mmol/L Anion Gap mmol/L BUN (7-17) mg/dL Creatinine (0.52-1.04) mg/dL Est GFR (CKD-EPI)AfAm (>60 ml/min/1.73 sqM) Est GFR (CKD-EPI)NonAf (>60 ml/min/1.73 sqM) Glucose (74-99) mg/dL POC Glucose (mg/dL) 222 H (70-110) mg/dL POC Glu Chief Chemist ID Danii Kidd Lactic Ac Sepsis Rflx Plasma Lactic Acid Farooq 1.2 (0.7-2.0) mmol/L Calcium (8.4-10.2) mg/dL Phosphorus (2.5-4.5) mg/dL Magnesium (1.6-2.3) mg/dL Total Bilirubin (0.2-1.3) mg/dL AST (14-36) U/L ALT (4-34) U/L Alkaline Phosphatase (38-126) U/L Troponin I 0.016 (0.000-0.034) ng/mL Total Protein (6.3-8.2) g/dL Albumin (3.5-5.0) g/dL Amylase (30-110) U/L Lipase (23-300) U/L Urine Color Urine Appearance (Clear) Urine pH (5.0-8.0) Ur Specific Horatio (1.001-1.035) Urine Protein (Negative) Urine Glucose (UA) (Negative) Urine Ketones (Negative) Urine Blood (Negative) Urine Nitrite (Negative) Urine Bilirubin (Negative) Urine Urobilinogen (<2.0) mg/dL Ur Leukocyte Esterase (Negative) Acetone, Qual (Negative) 11/18/23 Range/Units 15:54 WBC (3.8-10.6) k/uL RBC (3.80-5.40) m/uL Hgb (11.4-16.0) gm/dL Hct (34.0-46.0) % MCV (80.0-100.0) fL MCH (25.0-35.0) pg MCHC (31.0-37.0) g/dL RDW (11.5-15.5) % Plt Count (150-450) k/uL MPV Neutrophils % % Lymphocytes % % Monocytes % % Eosinophils % % Basophils % % Neutrophils # (1.3-7.7) k/uL Lymphocytes # (1.0-4.8) k/uL Monocytes # (0-1.0) k/uL Eosinophils # (0-0.7) k/uL Basophils # (0-0.2) k/uL VBG pH (7.31-7.41) VBG pCO2 (37-51) mmHg VBG HCO3 (24-28) mmol/L Sodium (137-145) mmol/L Potassium (3.5-5.1) mmol/L Chloride (98-107) mmol/L Carbon Dioxide (22-30) mmol/L Anion Gap mmol/L BUN (7-17) mg/dL Creatinine (0.52-1.04) mg/dL Est GFR (CKD-EPI)AfAm (>60 ml/min/1.73 sqM) Est GFR (CKD-EPI)NonAf (>60 ml/min/1.73 sqM) Glucose (74-99) mg/dL POC Glucose (mg/dL) 192 H (70-110) mg/dL POC Glu Chief Chemist ID Jacquelyn Dupont Lactic Ac Sepsis Rflx Plasma Lactic Acid Farooq (0.7-2.0) mmol/L Calcium (8.4-10.2) mg/dL Phosphorus (2.5-4.5) mg/dL Magnesium (1.6-2.3) mg/dL Total Bilirubin (0.2-1.3) mg/dL AST (14-36) U/L ALT (4-34) U/L Alkaline Phosphatase (38-126) U/L Troponin I (0.000-0.034) ng/mL Total Protein (6.3-8.2) g/dL Albumin (3.5-5.0) g/dL Amylase (30-110) U/L Lipase (23-300) U/L Urine Color Urine Appearance (Clear) Urine pH (5.0-8.0) Ur Specific Horatio (1.001-1.035) Urine Protein (Negative) Urine Glucose (UA) (Negative) Urine Ketones (Negative) Urine Blood (Negative) Urine Nitrite (Negative) Urine Bilirubin (Negative) Urine Urobilinogen (<2.0) mg/dL Ur Leukocyte Esterase (Negative) Acetone, Qual (Negative) - Radiology Data Radiology results: report reviewed, image reviewed Critical Care Time Critical Care Time: Yes Critical Care Time: >35 minutes Disposition Clinical Impression: DKA (diabetic ketoacidosis) Disposition: ADMITTED IP TO THIS HOSP
[2023-11-18] MEDS: ACETAMINOPHEN IV (For NPO) 1,000 MG in EMPTY BAG 1 BAG IVPB STA (11:35)
[2023-11-18] MEDS: diphenhydrAMINE 50 MG/ML 1 ML VIAL IVP STA (11:41)
[2023-11-18 11:43] LABS: Basophils % (A) 0 %; Eosinophils # (A) 0.1 k/uL (0-0.7); Eosinophils % (A) 1 %; HCT 53.8 % (34.0-46.0); HGB 17.1 gm/dL (11.4-16.0); Lymphocytes # (A) 0.8 k/uL (1.0-4.8); Lymphocytes % (A) 5 %; MCH 31.6 pg (25.0-35.0); MCHC 31.7 g/dL (31.0-37.0); MCV 99.8 fL (80.0-100.0); Monocytes # (A) 0.5 k/uL (0-1.0); Monocytes % (A) 4 %; Neutrophils # (A) 13.7 k/uL (1.3-7.7); Neutrophils % (A) 90 %; Platelet Count 383 k/uL (150-450); RBC 5.39 m/uL (3.80-5.40); RDW 12.7 % (11.5-15.5); WBC 15.3 k/uL (3.8-10.6)
[2023-11-18 11:58] LABS: Appearance,Urine Clear (Clear); Bilirubin,Urine Negative (Negative); Blood,Urine Negative (Negative); Color,Urine Colorless; Glucose,Urine (UA) 4+ (Negative); Leukocyte Esterase,Urine Negative (Negative); Nitrite,Urine Negative (Negative); Protein,Urine Negative (Negative); Urobilinogen,Urine <2.0 mg/dL (<2.0)
[2023-11-18 11:59] LABS: ALT 29 U/L (4-34); African American GFR (CKD) >90 (>60 ml/min/1.73 sqM); Albumin 5.2 g/dL (3.5-5.0); Amylase 96 U/L (30-110); Anion Gap 22 mmol/L; Blood Urea Nitrogen 22 mg/dL (7-17); Calcium 9.8 mg/dL (8.4-10.2); Carbon Dioxide 13 mmol/L (22-30); Chloride 92 mmol/L (98-107); Glucose 435 mg/dL (74-99); Lipase 295 U/L (23-300); Magnesium 2.1 mg/dL (1.6-2.3); Non-African American GFR(CKD) 82 (>60 ml/min/1.73 sqM); Sodium 127 mmol/L (137-145); Total Bilirubin 1.6 mg/dL (0.2-1.3); Total Protein 8.2 g/dL (6.3-8.2)
[2023-11-18 12:12] LABS: Potassium 5.4 mmol/L (3.5-5.1)
[2023-11-18 12:13] LABS: AST 35 U/L (14-36); Alkaline Phosphatase 103 U/L (38-126); Phosphorus 4.5 mg/dL (2.5-4.5)
[2023-11-18 12:20] LABS: Ketones,Urine 4+ (Negative)
[2023-11-18] MEDS: HYDROmorphone 1 MG/ML 1 ML SYRINGE IVP STA ×2 (13:03→16:25)
[2023-11-18] MEDS: SODIUM CHLORIDE 0.9% 1,000 ML IV SCH (13:07)
[2023-11-18] MEDS: METOCLOPRAMIDE 5 MG/ML 2 ML VIAL IVP STA (13:16)
[2023-11-18 13:18] LABS: VBG PH 7.28 (7.31-7.41)
--- NOTE | 2023-11-18 13:18 | CT ---
EXAMINATION TYPE: CT abdomen pelvis w con DATE OF EXAM: 11/18/2023 COMPARISON: 09/10/2023 HISTORY: 58-year-old female abdominal pain x few days. Technologist notes: History of abdominal issue ever since trial back sx in 2011 TECHNIQUE: Contiguous axial scanning of the abdomen and pelvis following administration of 100 ml Iso ami 300 IV contrast. Delayed images through the kidneys and coronal/sagittal reconstructions perform ed. CT DLP: 1293.7 mGycm Automated exposure control for dose reduction was used. FINDINGS: The heart is normal size without pericardial effusion. Lung bases clear without pleural effusion. Tiny hiatal hernia. Low attenuation of the hepatic parenchyma without focal lesion. Portal venous system is patent. No bi liary ductal dilatation. Cholecystectomy clips. 2.0 cm nodularity left adrenal gland is unchanged. Right adrenal gland, kidneys, spleen, and pancreas show no gross abnormality. Slightly malrotated lef t kidney redemonstrated. No dilated bowel, free fluid, or free air. No mesenteric or retroperitoneal lymphadenopathy. Mild stool burden. Some scattered colonic diverticulosis but more extensive within the sigmoid colon. No pericolonic inflammatory change. Bladder is urine distended. Uterus surgically absent. Both ovaries are visualized. Tiny pelvic fluid phleboliths. No abnormal fluid collection in the pelvis or pelvic lymphadenopathy. Bones: Mild to moderate degenerative change of the hips. Mild degenerative change SI joints. Postsurg ical change L4-L5 posterior and interbody lumbar fusion. Hypertrophic facet arthropathy above at both L2-L3 and L3-L4 with grade 1 retrolisthesis and grade 1 anterolisthesis at both of these levels, res pectively. IMPRESSION: 1. TINY HIATAL HERNIA, HEPATIC STEATOSIS, AND SIGMOID DIVERTICULOSIS. No evidence for acute diverticu litis. 2. 2.0 cm nodularity left adrenal gland remains unchanged. Statistically representing a benign adrena l adenoma. Recommend 12 month follow-up adrenal mass protocol CT to reassess and further characterize .
[2023-11-18 13:30] LABS: Glucose,Whole Blood 361 mg/dL (70-110)
[2023-11-18] MEDS: INSULIN REGULAR 100 UNIT in SODIUM CHLORIDE 0.9% 100 ML IV SCH (13:30)
[2023-11-18] MEDS: INSULIN REGULAR BOLUS (FROM DRIP BAG) IV ONE (13:35)
--- NOTE | 2023-11-18 13:37 | XR ---
EXAMINATION TYPE: XR chest 2V DATE OF EXAM: 11/18/2023 COMPARISON: None HISTORY: 58-year-old female with chest pain, nausea and vomiting TECHNIQUE: PA and lateral views FINDINGS: Heart normal size. Mild interstitial prominence. Hyperinflation. No consolidation or pleural effusion . IMPRESSION: There may be underlying COPD. Clinically correlate. Otherwise, no acute process seen.
[2023-11-18] MEDS ORDERED: NALOXONE 0.4 MG/ML 1 ML VIAL IV PRN (13:43)
[2023-11-18] MEDS ORDERED: ACETAMINOPHEN TAB 325 MG TAB PO PRN (13:43)
[2023-11-18 14:56] LABS: Glucose,Whole Blood 222 mg/dL (70-110)
[2023-11-18 16:00] LABS: Glucose,Whole Blood 192 mg/dL (70-110)
[2023-11-18] MEDS: D5-0.45% NACL WITH KCL 20MEQ/L 1,000 ML IV SCH (16:20)
[2023-11-18] MEDS: ONDANSETRON 4 MG/2 ML VIAL IVP PRN (16:24)
[2023-11-18 17:32] LABS: Glucose,Whole Blood 158 mg/dL (70-110)
[2023-11-18 18:00] LABS: African American GFR (CKD) >90 (>60 ml/min/1.73 sqM); Anion Gap 7 mmol/L; Blood Urea Nitrogen 17 mg/dL (7-17); Carbon Dioxide 21 mmol/L (22-30); Chloride 102 mmol/L (98-107); Glucose 175 mg/dL (74-99); Non-African American GFR(CKD) >90 (>60 ml/min/1.73 sqM); Phosphorus 3.4 mg/dL (2.5-4.5); Potassium 4.3 mmol/L (3.5-5.1); Sodium 130 mmol/L (137-145)
[2023-11-18] MEDS: ONDANSETRON ODT 8 MG TAB.RAPDIS PO SCH (18:34)
[2023-11-18 20:10] LABS: Glucose,Whole Blood 107 mg/dL (70-110)
[2023-11-18 21:28] LABS: Glucose,Whole Blood 102 mg/dL (70-110)
[2023-11-18 21:54] LABS: African American GFR (CKD) >90 (>60 ml/min/1.73 sqM); Anion Gap 8 mmol/L; Blood Urea Nitrogen 13 mg/dL (7-17); Carbon Dioxide 20 mmol/L (22-30); Chloride 104 mmol/L (98-107); Glucose 113 mg/dL (74-99); Non-African American GFR(CKD) >90 (>60 ml/min/1.73 sqM); Phosphorus 2.8 mg/dL (2.5-4.5); Potassium 3.9 mmol/L (3.5-5.1); Sodium 132 mmol/L (137-145)
[2023-11-18 22:32] LABS: Glucose,Whole Blood 153 mg/dL (70-110)
[2023-11-18] MEDS: MORPHINE SULFATE 4 MG/ML SYRINGE IV PRN (22:42)
[2023-11-18] MEDS: CIPROFLOXACIN HCL 500 MG TAB PO SCH (22:43)
[2023-11-18] MEDS: METOCLOPRAMIDE 5 MG/ML 2 ML VIAL IVP PRN (22:43)
[2023-11-18 23:27] LABS: Glucose,Whole Blood 156 mg/dL (70-110)
[2023-11-19 01:26] LABS: Glucose,Whole Blood 264 mg/dL (70-110)
[2023-11-19 02:26] LABS: Glucose,Whole Blood 263 mg/dL (70-110)
[2023-11-19 03:25] LABS: Glucose,Whole Blood 249 mg/dL (70-110)
[2023-11-19 04:35] LABS: Glucose,Whole Blood 241 mg/dL (70-110)
[2023-11-19 05:25] LABS: Glucose,Whole Blood 200 mg/dL (70-110)
[2023-11-19 06:31] LABS: Glucose,Whole Blood 192 mg/dL (70-110)
[2023-11-19] MEDS: ESCITALOPRAM 20 MG TAB PO SCH (08:02)
[2023-11-19] MEDS: ATORVASTATIN 10 MG TAB PO SCH (08:02)
[2023-11-19] MEDS: PANTOPRAZOLE 40 MG/10 ML VIAL IV SCH (08:03)
[2023-11-19 08:21] LABS: Glucose,Whole Blood 139 mg/dL (70-110)
[2023-11-19 08:35] LABS: ALT 19 U/L (4-34); AST 21 U/L (14-36); African American GFR (CKD) >90 (>60 ml/min/1.73 sqM); Albumin 3.2 g/dL (3.5-5.0); Alkaline Phosphatase 66 U/L (38-126); Anion Gap 2 mmol/L; Blood Urea Nitrogen 9 mg/dL (7-17); Calcium 8.5 mg/dL (8.4-10.2); Carbon Dioxide 24 mmol/L (22-30); Chloride 107 mmol/L (98-107); Glucose 144 mg/dL (74-99); Magnesium 2.1 mg/dL (1.6-2.3); Non-African American GFR(CKD) >90 (>60 ml/min/1.73 sqM); Potassium 4.1 mmol/L (3.5-5.1); Sodium 133 mmol/L (137-145); Total Bilirubin 0.8 mg/dL (0.2-1.3); Total Protein 5.6 g/dL (6.3-8.2)
[2023-11-19 09:08] LABS: Glucose,Whole Blood 187 mg/dL (70-110)
[2023-11-19] MEDS ORDERED: Magnesium Replacement Protocol 1 EACH MISC MISCELLANE PRN (09:11)
[2023-11-19] MEDS ORDERED: Potassium Replacement Protocol 1 EACH MISC MISCELLANE PRN (09:11)
[2023-11-19] MEDS ORDERED: DEXTROSE 50% SYRINGE 50 ML IVP PRN ×4 (09:11)
[2023-11-19] MEDS ORDERED: INSULIN REGULAR BOLUS (FROM DRIP BAG) IV ONE (09:11)
[2023-11-19] MEDS ORDERED: SODIUM CHLORIDE 0.9% 1,000 ML IV SCH (09:15)
[2023-11-19] MEDS ORDERED: INSULIN REGULAR 100 UNIT in SODIUM CHLORIDE 0.9% 100 ML IV SCH (09:15)
[2023-11-19 11:16] LABS: VBG PH 7.36 (7.31-7.41)
--- NOTE | 2023-11-19 12:11 | P.HPIM ---
History of Present Illness H&P Date: 11/18/23 Chief Complaint: Abdominal pain/vomiting 58-year-old female, history of diabetes mellitus, who presents to the emergency department for abdominal pain, nausea, and vomiting. States that this started 4 days ago. Pain is in the epigastric region. States that she gets recurrent bouts of gastritis causing the same symptoms. Her blood sugar has also been in the 400s-500s. She is a type II diabetic but is dependent on insulin. She had an EGD a couple of months ago and was diagnosed with gastritis. Additionally, she reports intermittent bouts of chest pain over the last couple of days as well. Denies any shortness of breath. Denies any diarrhea or constipation. St ates that she had antibiotics recently switched for a UTI as well. Lab work demonstrates leukocytosis with a white blood cell count of 15.3. Lab work also consistent with the patient being in DKA. Blood sugar 435 with a bicarb of 13 and anion gap of 22. Acetone positive. She has mild hyperkalemia with a potassium of 5.4, which is hemolyzed. She has hyponatremia with a sodium of 127. However, when this is corrected to account for the hyperglycemia it is approximately 132. She did have bouts of chest pain, and troponin was 0.022. Chest x-ray reveals no acute process. CT scan of the abdomen and pelvis also reveals no acute findings. She was started on the DKA protocol. Review of Systems REVIEW OF SYSTEMS: CONSTITUTIONAL: No fever, no malaise, no fatigue. HEENT: No recent visual problems or hearing problems. Denied any sore throat. CARDIOVASCULAR: No chest pain, orthopnea, PND, no palpitations, no syncope. PULMONARY: No shortness of breath, no cough, no hemoptysis. GASTROINTESTINAL: Vomiting and abdominal pain. NEUROLOGICAL: No headaches, no weakness, no numbness. HEMATOLOGICAL: Denies any bleeding or petechiae. GENITOURINARY: Denies any burning micturition, frequency, or urgency. MUSCULOSKELETAL/RHEUMATOLOGICAL: Denies any joint pain, swelling, or any muscle pain. ENDOCRINE: Denies any polyuria or polydipsia. The rest of the 14-point review of systems is negative. Past Medical History Past Medical History: Diabetes Mellitus History of Any Multi-Drug Resistant Organisms: None Reported Past Surgical History: Back Surgery, Cholecystectomy, Hysterectomy, Orthopedic Surgery, Tonsillectomy Additional Past Surgical History / Comment(s): bilateral foot sx- mortons neuroma removal, Past Anesthesia/Blood Transfusion Reactions: Postoperative Nausea & Vomiting (PONV) Past Psychological History: No Psychological Hx Reported Smoking Status: Never smoker Past Alcohol Use History: Occasional Past Drug Use History: Marijuana - Past Family History Mother Family Medical History: Cancer Additional Family Medical History / Comment(s): breast cancer Father Additional Family Medical History / Comment(s): AAA Medications and Allergies Home Medications Medication Instructions Recorded Confirmed Type Atorvastatin [Lipitor] 10 mg PO DAILY 09/11/23 11/18/23 History Escitalopram [Lexapro] 20 mg PO DAILY 09/11/23 11/18/23 History INSULIN ASPART (NovoLOG) [NovoLOG See Protocol SQ AC-TID 09/11/23 11/18/23 History (formulary)] Insulin Glargine-Yfgn [Semglee 20 unit SQ HS 09/11/23 11/18/23 History (Yfgn) Pen] Ciprofloxacin HCl [Cipro] 500 mg PO BID 11/18/23 11/18/23 History Ondansetron Odt [Zofran Odt] 8 mg PO TID 11/18/23 11/18/23 History Allergies Allergy/AdvReac Type Severity Reaction Status Date / Time No Known Allergies Allergy Verified 11/18/23 13:20 Physical Exam Vitals: Vital Signs Temp Pulse Resp BP Pulse Ox 11/18/23 15:49 98.2 F 80 16 131/83 97 11/18/23 10:36 98.3 F 117 H 22 81/54 98 Intake and Output 11/18/23 11/18/23 11/18/23 06:59 14:59 22:59 Other: Voiding Method Toilet Weight 90.718 kg General appearance: alert, in distress Head exam: Present: atraumatic, normocephalic, normal inspection Respiratory exam: Present: normal lung sounds bilaterally. Absent: respiratory distress, wheezes, rales, rhonchi, stridor Cardiovascular Exam: Present: regular rate, normal rhythm, normal heart sounds. Absent: systolic murmur, diastolic murmur, rubs, gallop, clicks GI/Abdominal exam: Present: soft, tenderness (Epigastric), normal bowel sounds. Absent: distended Neurological exam: Present: alert, oriented X3, CN II-XII intact Psychiatric exam: Present: normal affect, normal mood Skin exam: Present: warm, dry, intact, normal color. Absent: rash Results CBC & Chem 7: 11/18/23 11:25 11/19/23 07:50 Labs: Abnormal Lab Results - Last 24 Hours (Table) 11/18/23 11/18/23 11/18/23 Range/Units 10:45 11:25 11:25 WBC 15.3 H (3.8-10.6) k/uL Hgb 17.1 H (11.4-16.0) gm/dL Hct 53.8 H (34.0-46.0) % Neutrophils # 13.7 H (1.3-7.7) k/uL Lymphocytes # 0.8 L (1.0-4.8) k/uL VBG pH (7.31-7.41) VBG pCO2 (37-51) mmHg VBG HCO3 (24-28) mmol/L Sodium 127 L (137-145) mmol/L Potassium 5.4 H (3.5-5.1) mmol/L Chloride 92 L (98-107) mmol/L Carbon Dioxide 13 L (22-30) mmol/L BUN 22 H (7-17) mg/dL Glucose 435 H (74-99) mg/dL POC Glucose (mg/dL) 433 H (70-110) mg/dL Plasma Lactic Acid Farooq (0.7-2.0) mmol/L Total Bilirubin 1.6 H (0.2-1.3) mg/dL Albumin 5.2 H (3.5-5.0) g/dL Urine Glucose (UA) (Negative) Urine Ketones (Negative) 11/18/23 11/18/23 11/18/23 Range/Units 11:25 11:28 13:10 WBC (3.8-10.6) k/uL Hgb (11.4-16.0) gm/dL Hct (34.0-46.0) % Neutrophils # (1.3-7.7) k/uL Lymphocytes # (1.0-4.8) k/uL VBG pH 7.28 L (7.31-7.41) VBG pCO2 30 L (37-51) mmHg VBG HCO3 14 L (24-28) mmol/L Sodium (137-145) mmol/L Potassium (3.5-5.1) mmol/L Chloride (98-107) mmol/L Carbon Dioxide (22-30) mmol/L BUN (7-17) mg/dL Glucose (74-99) mg/dL POC Glucose (mg/dL) (70-110) mg/dL Plasma Lactic Acid Farooq 2.4 H* (0.7-2.0) mmol/L Total Bilirubin (0.2-1.3) mg/dL Albumin (3.5-5.0) g/dL Urine Glucose (UA) 4+ H (Negative) Urine Ketones 4+ H (Negative) 11/18/23 11/18/23 11/18/23 Range/Units 13:27 14:55 15:54 WBC (3.8-10.6) k/uL Hgb (11.4-16.0) gm/dL Hct (34.0-46.0) % Neutrophils # (1.3-7.7) k/uL Lymphocytes # (1.0-4.8) k/uL VBG pH (7.31-7.41) VBG pCO2 (37-51) mmHg VBG HCO3 (24-28) mmol/L Sodium (137-145) mmol/L Potassium (3.5-5.1) mmol/L Chloride (98-107) mmol/L Carbon Dioxide (22-30) mmol/L BUN (7-17) mg/dL Glucose (74-99) mg/dL POC Glucose (mg/dL) 361 H 222 H 192 H (70-110) mg/dL Plasma Lactic Acid Farooq (0.7-2.0) mmol/L Total Bilirubin (0.2-1.3) mg/dL Albumin (3.5-5.0) g/dL Urine Glucose (UA) (Negative) Urine Ketones (Negative) 11/18/23 11/18/23 Range/Units 17:31 17:31 WBC (3.8-10.6) k/uL Hgb (11.4-16.0) gm/dL Hct (34.0-46.0) % Neutrophils # (1.3-7.7) k/uL Lymphocytes # (1.0-4.8) k/uL VBG pH (7.31-7.41) VBG pCO2 (37-51) mmHg VBG HCO3 (24-28) mmol/L Sodium 130 L (137-145) mmol/L Potassium (3.5-5.1) mmol/L Chloride (98-107) mmol/L Carbon Dioxide 21 L (22-30) mmol/L BUN (7-17) mg/dL Glucose 175 H (74-99) mg/dL POC Glucose (mg/dL) 158 H (70-110) mg/dL Plasma Lactic Acid Farooq (0.7-2.0) mmol/L Total Bilirubin (0.2-1.3) mg/dL Albumin (3.5-5.0) g/dL Urine Glucose (UA) (Negative) Urine Ketones (Negative) Assessment and Plan Assessment: 1. DKA -Patient is placed on IV fluids; IV insulin infusion per protocol -Monitor BMP and phosphorus levels every 4 hours and adjust fluids as needed -Accu-Cheks every hour and adjust insulin infusion -Switch patient to long-acting insulin sliding scale DKA is resolved 2. Leukocytosis; likely reactive versus hemoconcentration related to dehydration; IV fluids as indicated above; will monitor CBC closely and make further recommendations pending results 3. Hyperlipidemia; Lipitor 10 mg nightly 4. Anxiety/depression; patient takes Lexapro 20 mg daily 5. Obesity; counseling done on need for weight reduction DVT prophylaxis; SCDs/subcu heparin CODE STATUS; full code
[2023-11-19 12:45] LABS: Glucose,Whole Blood 207 mg/dL (70-110)
[2023-11-19] MEDS: INSULIN ASPART (NovoLOG) 100 UNIT/ML VIAL SQ SCH (13:11)
[2023-11-19 13:44] LABS: Basophils % (A) 1 %; Eosinophils # (A) 0.1 k/uL (0-0.7); Eosinophils % (A) 2 %; HCT 41.9 % (34.0-46.0); Lymphocytes # (A) 1.8 k/uL (1.0-4.8); Lymphocytes % (A) 28 %; MCH 31.3 pg (25.0-35.0); MCHC 31.1 g/dL (31.0-37.0); MCV 100.6 fL (80.0-100.0); Mean Platelet Volume 9.2; Monocytes # (A) 0.6 k/uL (0-1.0); Monocytes % (A) 9 %; Neutrophils # (A) 3.6 k/uL (1.3-7.7); Neutrophils % (A) 58 %; Platelet Count 249 k/uL (150-450); RBC 4.17 m/uL (3.80-5.40); RDW 13.1 % (11.5-15.5); WBC 6.3 k/uL (3.8-10.6)
[2023-11-19 13:44] LABS: African American GFR (CKD) >90 (>60 ml/min/1.73 sqM); Anion Gap 5 mmol/L; Blood Urea Nitrogen 10 mg/dL (7-17); Calcium 8.7 mg/dL (8.4-10.2); Carbon Dioxide 22 mmol/L (22-30); Chloride 105 mmol/L (98-107); Glucose 258 mg/dL (74-99); Non-African American GFR(CKD) >90 (>60 ml/min/1.73 sqM); Potassium 4.4 mmol/L (3.5-5.1); Sodium 132 mmol/L (137-145)
[2023-11-19 16:58] LABS: Basophils # (A) 0.1 k/uL (0-0.2); Basophils % (A) 1 %; Eosinophils # (A) 0.2 k/uL (0-0.7); Eosinophils % (A) 3 %; HCT 42.1 % (34.0-46.0); HGB 13.6 gm/dL (11.4-16.0); Lymphocytes # (A) 2.3 k/uL (1.0-4.8); Lymphocytes % (A) 33 %; MCH 32.2 pg (25.0-35.0); MCHC 32.3 g/dL (31.0-37.0); MCV 99.5 fL (80.0-100.0); Mean Platelet Volume 8.6; Monocytes # (A) 0.5 k/uL (0-1.0); Monocytes % (A) 7 %; Neutrophils # (A) 3.8 k/uL (1.3-7.7); Neutrophils % (A) 55 %; Platelet Count 263 k/uL (150-450); RBC 4.23 m/uL (3.80-5.40); RDW 12.7 % (11.5-15.5)
[2023-11-19 17:10] LABS: African American GFR (CKD) >90 (>60 ml/min/1.73 sqM); Anion Gap 5 mmol/L; Blood Urea Nitrogen 13 mg/dL (7-17); Carbon Dioxide 24 mmol/L (22-30); Chloride 103 mmol/L (98-107); Glucose 292 mg/dL (74-99); Non-African American GFR(CKD) >90 (>60 ml/min/1.73 sqM); Potassium 4.5 mmol/L (3.5-5.1); Sodium 132 mmol/L (137-145)
[2023-11-19 17:13] LABS: Glucose,Whole Blood 246 mg/dL (70-110)
--- NOTE | 2023-11-19 18:14 | P.PN ---
Subjective Progress Note Date: 11/19/23 58-year-old female, history of diabetes mellitus, who presents to the emergency department for abdominal pain, nausea, and vomiting. States that this started 4 days ago. Pain is in the epigastric region. States that she gets recurrent bouts of gastritis causing the same symptoms. Her blood sugar has also been in the 400s-500s. She is a type II diabetic but is dependent on insulin. She had an EGD a couple of months ago and was diagnosed with gastritis. Additionally, she reports intermittent bouts of chest pain over the last couple of days as well. Denies any shortness of breath. Denies any diarrhea or constipation. States that she had antibiotics recently switched for a UTI as well. Lab work demonstrates leukocytosis with a white blood cell count of 15.3. Lab work also consistent with the patient being in DKA. Blood sugar 435 with a bicarb of 13 and anion gap of 22. Acetone positive. She has mild hyperkalemia with a potassium of 5.4, which is hemolyzed. She has hyponatremia with a sodium of 127. However, when this is corrected to account for the hyperglycemia it is approximately 132. She did have bouts of chest pain, and troponin was 0.022. Chest x-ray reveals no acute process. CT scan of the abdomen and pelvis also reveals no acute findings. She was started on the DKA protocol. --DKA has resolved; patient is placed on long-acting insulin with sliding scale coverage -We will monitor electrolytes, anion gap and bicarb; monitor patient for another 24 hours; continue IV fluids Possible discharge in next 24 hours if remains stable -Patient requesting endocrinology consult at time of discharge Objective - Vital Signs Vital signs: Vital Signs Temp 98.2 F 11/18/23 15:58 Pulse 83 11/19/23 08:00 Resp 17 11/19/23 08:00 BP 113/68 11/19/23 08:00 Pulse Ox 98 11/19/23 08:00 FiO2 Intake & Output 11/18/23 11/19/23 11/19/23 18:59 06:59 18:59 Intake Total 479.937 Balance 479.937 Weight 90.718 kg Intake: Intake, IV Titration 479.937 Amount D5-0.45% NaCl with KCl 400 20Meq/l 1,000 ml @ 150 mls/hr IV .Q6H40M [facility] Rx# :[id number] Insulin Regular 100 unit 79.937 In Sodium Chloride 0.9% 100 ml @ 0.1 UNITS/KG/HR 9.163 mls/hr IV .Q11H2M [facility] Rx#:[id number] Other: Voiding Method Toilet - Exam General appearance: alert, in distress Head exam: Present: atraumatic, normocephalic, normal inspection Respiratory exam: Present: normal lung sounds bilaterally. Absent: respiratory distress, wheezes, rales, rhonchi, stridor Cardiovascular Exam: Present: regular rate, normal rhythm, normal heart sounds. Absent: systolic murmur, diastolic murmur, rubs, gallop, clicks GI/Abdominal exam: Present: soft, tenderness (Epigastric), normal bowel sounds. Absent: distended Neurological exam: Present: alert, oriented X3, CN II-XII intact Psychiatric exam: Present: normal affect, normal mood Skin exam: Present: warm, dry, intact, normal color. Absent: rash - Labs CBC & Chem 7: 11/19/23 16:30 11/19/23 16:30 Labs: Abnormal Lab Results - Last 24 Hours (Table) 11/18/23 11/18/23 11/18/23 Range/Units 11:25 11:25 11:25 VBG pH (7.31-7.41) VBG pCO2 (37-51) mmHg VBG HCO3 (24-28) mmol/L Sodium 127 L (137-145) mmol/L Potassium 5.4 H (3.5-5.1) mmol/L Chloride 92 L (98-107) mmol/L Carbon Dioxide 13 L (22-30) mmol/L BUN 22 H (7-17) mg/dL Creatinine (0.52-1.04) mg/dL Glucose 435 H (74-99) mg/dL POC Glucose (mg/dL) (70-110) mg/dL Hemoglobin A1c 10.9 H (<=6.0) % Plasma Lactic Acid Farooq 2.4 H* (0.7-2.0) mmol/L Total Bilirubin 1.6 H (0.2-1.3) mg/dL Total Protein (6.3-8.2) g/dL Albumin 5.2 H (3.5-5.0) g/dL Urine Glucose (UA) (Negative) Urine Ketones (Negative) 11/18/23 11/18/23 11/18/23 Range/Units 11:28 13:10 13:27 VBG pH 7.28 L (7.31-7.41) VBG pCO2 30 L (37-51) mmHg VBG HCO3 14 L (24-28) mmol/L Sodium (137-145) mmol/L Potassium (3.5-5.1) mmol/L Chloride (98-107) mmol/L Carbon Dioxide (22-30) mmol/L BUN (7-17) mg/dL Creatinine (0.52-1.04) mg/dL Glucose (74-99) mg/dL POC Glucose (mg/dL) 361 H (70-110) mg/dL Hemoglobin A1c (<=6.0) % Plasma Lactic Acid Farooq (0.7-2.0) mmol/L Total Bilirubin (0.2-1.3) mg/dL Total Protein (6.3-8.2) g/dL Albumin (3.5-5.0) g/dL Urine Glucose (UA) 4+ H (Negative) Urine Ketones 4+ H (Negative) 11/18/23 11/18/23 11/18/23 Range/Units 14:55 15:54 17:31 VBG pH (7.31-7.41) VBG pCO2 (37-51) mmHg VBG HCO3 (24-28) mmol/L Sodium 130 L (137-145) mmol/L Potassium (3.5-5.1) mmol/L Chloride (98-107) mmol/L Carbon Dioxide 21 L (22-30) mmol/L BUN (7-17) mg/dL Creatinine (0.52-1.04) mg/dL Glucose 175 H (74-99) mg/dL POC Glucose (mg/dL) 222 H 192 H (70-110) mg/dL Hemoglobin A1c (<=6.0) % Plasma Lactic Acid Farooq (0.7-2.0) mmol/L Total Bilirubin (0.2-1.3) mg/dL Total Protein (6.3-8.2) g/dL Albumin (3.5-5.0) g/dL Urine Glucose (UA) (Negative) Urine Ketones (Negative) 11/18/23 11/18/23 11/18/23 Range/Units 17:31 21:20 22:31 VBG pH (7.31-7.41) VBG pCO2 (37-51) mmHg VBG HCO3 (24-28) mmol/L Sodium 132 L (137-145) mmol/L Potassium (3.5-5.1) mmol/L Chloride (98-107) mmol/L Carbon Dioxide 20 L (22-30) mmol/L BUN (7-17) mg/dL Creatinine (0.52-1.04) mg/dL Glucose 113 H (74-99) mg/dL POC Glucose (mg/dL) 158 H 153 H (70-110) mg/dL Hemoglobin A1c (<=6.0) % Plasma Lactic Acid Farooq (0.7-2.0) mmol/L Total Bilirubin (0.2-1.3) mg/dL Total Protein (6.3-8.2) g/dL Albumin (3.5-5.0) g/dL Urine Glucose (UA) (Negative) Urine Ketones (Negative) 11/18/23 11/19/23 11/19/23 Range/Units 23:25 01:25 02:25 VBG pH (7.31-7.41) VBG pCO2 (37-51) mmHg VBG HCO3 (24-28) mmol/L Sodium (137-145) mmol/L Potassium (3.5-5.1) mmol/L Chloride (98-107) mmol/L Carbon Dioxide (22-30) mmol/L BUN (7-17) mg/dL Creatinine (0.52-1.04) mg/dL Glucose (74-99) mg/dL POC Glucose (mg/dL) 156 H 264 H 263 H (70-110) mg/dL Hemoglobin A1c (<=6.0) % Plasma Lactic Acid Farooq (0.7-2.0) mmol/L Total Bilirubin (0.2-1.3) mg/dL Total Protein (6.3-8.2) g/dL Albumin (3.5-5.0) g/dL Urine Glucose (UA) (Negative) Urine Ketones (Negative) 11/19/23 11/19/23 11/19/23 Range/Units 03:23 04:33 05:23 VBG pH (7.31-7.41) VBG pCO2 (37-51) mmHg VBG HCO3 (24-28) mmol/L Sodium (137-145) mmol/L Potassium (3.5-5.1) mmol/L Chloride (98-107) mmol/L Carbon Dioxide (22-30) mmol/L BUN (7-17) mg/dL Creatinine (0.52-1.04) mg/dL Glucose (74-99) mg/dL POC Glucose (mg/dL) 249 H 241 H 200 H (70-110) mg/dL Hemoglobin A1c (<=6.0) % Plasma Lactic Acid Farooq (0.7-2.0) mmol/L Total Bilirubin (0.2-1.3) mg/dL Total Protein (6.3-8.2) g/dL Albumin (3.5-5.0) g/dL Urine Glucose (UA) (Negative) Urine Ketones (Negative) 11/19/23 11/19/23 11/19/23 Range/Units 06:30 07:50 08:15 VBG pH (7.31-7.41) VBG pCO2 (37-51) mmHg VBG HCO3 (24-28) mmol/L Sodium 133 L (137-145) mmol/L Potassium (3.5-5.1) mmol/L Chloride (98-107) mmol/L Carbon Dioxide (22-30) mmol/L BUN (7-17) mg/dL Creatinine 0.45 L (0.52-1.04) mg/dL Glucose 144 H (74-99) mg/dL POC Glucose (mg/dL) 192 H 139 H (70-110) mg/dL Hemoglobin A1c (<=6.0) % Plasma Lactic Acid Farooq (0.7-2.0) mmol/L Total Bilirubin (0.2-1.3) mg/dL Total Protein 5.6 L (6.3-8.2) g/dL Albumin 3.2 L (3.5-5.0) g/dL Urine Glucose (UA) (Negative) Urine Ketones (Negative) 11/19/23 Range/Units 09:06 VBG pH (7.31-7.41) VBG pCO2 (37-51) mmHg VBG HCO3 (24-28) mmol/L Sodium (137-145) mmol/L Potassium (3.5-5.1) mmol/L Chloride (98-107) mmol/L Carbon Dioxide (22-30) mmol/L BUN (7-17) mg/dL Creatinine (0.52-1.04) mg/dL Glucose (74-99) mg/dL POC Glucose (mg/dL) 187 H (70-110) mg/dL Hemoglobin A1c (<=6.0) % Plasma Lactic Acid Farooq (0.7-2.0) mmol/L Total Bilirubin (0.2-1.3) mg/dL Total Protein (6.3-8.2) g/dL Albumin (3.5-5.0) g/dL Urine Glucose (UA) (Negative) Urine Ketones (Negative) Assessment and Plan Assessment: 1. DKA -Patient is placed on IV fluids; IV insulin infusion per protocol -Monitor BMP and phosphorus levels every 4 hours and adjust fluids as needed -Accu-Cheks every hour and adjust insulin infusion -Switch patient to long-acting insulin sliding scale DKA is resolved 2. Leukocytosis; likely reactive versus hemoconcentration related to dehydration; IV fluids as indicated above; will monitor CBC closely and make further recommendations pending results 3. Hyperlipidemia; Lipitor 10 mg nightly 4. Anxiety/depression; patient takes Lexapro 20 mg daily 5. Obesity; counseling done on need for weight reduction DVT prophylaxis; SCDs/subcu heparin CODE STATUS; full code
[2023-11-19] MEDS: HYDROcodone/APAP 5-325MG 1 EACH TAB PO PRN (20:34)
[2023-11-19 21:30] LABS: Glucose,Whole Blood 298 mg/dL (70-110)
[2023-11-19] MEDS: diphenhydrAMINE 25 MG CAP PO PRN (22:04)
[2023-11-19] MEDS: INSULIN DETEMIR (LEVEMIR) 100 UNIT/ML SYR SQ SCH (22:05)
[2023-11-20] MEDS ORDERED: diphenhydrAMINE 50 MG/ML 1 ML VIAL ONE ×3 (00:01→15:36)
[2023-11-20] MEDS ORDERED: CIPROFLOXACIN HCL 500 MG TAB ONE (00:01)
[2023-11-20] MEDS ORDERED: INSULIN ASPART (NovoLOG) 100 UNIT/ML VIAL SQ ONE ×4 (00:01→22:16)
[2023-11-20 00:31] VITALS: BP 110/70; PULSE 67; RESP 14; TEMP 98.7
[2023-11-20 06:44] LABS: Glucose,Whole Blood 251 mg/dL (70-110)
[2023-11-20] MEDS ORDERED: PANTOPRAZOLE 40 MG/10 ML VIAL ONE (08:24)
[2023-11-20] MEDS ORDERED: ATORVASTATIN 10 MG TAB ONE (08:25)
[2023-11-20] MEDS ORDERED: ESCITALOPRAM 20 MG TAB ONE (08:25)
[2023-11-20 11:54] LABS: Glucose,Whole Blood 250 mg/dL (70-110)
[2023-11-20] MEDS ORDERED: MORPHINE SULFATE 4 MG/ML SYRINGE ONE (12:47)
[2023-11-20] MEDS ORDERED: INSULIN DETEMIR (LEVEMIR) 100 UNIT/ML SYR SQ ONE (13:17)
[2023-11-20 16:56] LABS: Glucose,Whole Blood 304 mg/dL (70-110)
[2023-11-20] MEDS ORDERED: diphenhydrAMINE 25 MG CAP ONE (20:11)
[2023-11-20] MEDS ORDERED: HYDROcodone/APAP 5-325MG 1 EACH TAB ONE (20:12)
[2023-11-20 21:48] LABS: Glucose,Whole Blood 266 mg/dL (70-110)
[2023-11-21 06:24] LABS: Glucose,Whole Blood 218 mg/dL (70-110)
[2023-11-21] MEDS ORDERED: INSULIN ASPART (NovoLOG) 100 UNIT/ML VIAL SQ ONE ×2 (06:31→13:26)
[2023-11-21] MEDS ORDERED: ONDANSETRON 4 MG/2 ML VIAL ONE (06:36)
[2023-11-21] MEDS ORDERED: ATORVASTATIN 10 MG TAB ONE (08:49)
[2023-11-21] MEDS ORDERED: PANTOPRAZOLE 40 MG/10 ML VIAL ONE (08:49)
[2023-11-21 12:28] LABS: Glucose,Whole Blood 251 mg/dL (70-110)
[2023-11-21] MEDS ORDERED: HYDROcodone/APAP 5-325MG 1 EACH TAB ONE (14:57)
[2023-12-13 10:19] LABS: African American GFR (CKD) >90; Anion Gap 6 mmol/L; Blood Urea Nitrogen 13 mg/dL (7-17); Calcium 9.3 mg/dL (8.4-10.2); Carbon Dioxide 23 mmol/L (22-30); Chloride 102 mmol/L (98-107); Glucose 258 mg/dL (74-99); Non-African American GFR(CKD) >90; Potassium 4.6 mmol/L (3.5-5.1); Sodium 131 mmol/L (137-145)
[2023-12-13 10:20] LABS: HCT 43.8 % (34.0-46.0); HGB 14.2 gm/dL (11.4-16.0); MCH 32.5 pg (25.0-35.0); MCHC 32.4 g/dL (31.0-37.0); MCV 100.2 fL (80.0-100.0); Platelet Count 242 k/uL (150-450); RBC 4.37 m/uL (3.80-5.40); RDW 12.6 % (11.5-15.5); WBC 7.4 k/uL (3.8-10.6)
[2023-12-13 10:21] LABS: Basophils # (A) 0.1 k/uL (0-0.2); Basophils % (A) 1 %; Eosinophils # (A) 0.3 k/uL (0-0.7); Eosinophils % (A) 3 %; Lymphocytes # (A) 1.5 k/uL (1.0-4.8); Lymphocytes % (A) 20 %; Monocytes # (A) 0.4 k/uL (0-1.0); Monocytes % (A) 6 %; Neutrophils # (A) 5.2 k/uL (1.3-7.7); Neutrophils % (A) 69.6
--- NOTE | 2023-12-14 10:45 | CA ---
Exercise Stress Test Report Name: Fiordaliza Steinberg Exam Date: 11/21/2023 11:55 Exam Location: [place] Stress Ht (in): 68 Wt (lb): 200 BSA: 2.04 Ordering Phys: vida benedict Referring Phys: DEBBIE Technologist: Jose Hall Age: 58 Gender: F : 1965 Procedure CPT: Indications: ICD-10 Codes: Patient History: Medications: Meds past 24 hrs: Pretest Chest Pain: STRESS TEST Adam Protocol Exercise Duration (min:sec): 06:[address] Depressions (mm): Angina Score: Morton Score: Resting HR (bpm): 91 Peak HR (bpm): 162 Resting BP (mmHg): 116 / 65 Peak BP (mmHg): 186 / 76 MPHR: 160 Target HR: 136 % MPHR: 101 METS: 8.0 Total Dose: Peak Dose: Atropine: Double Product: 26445 BP Response: Stress Termination: Reached target heart rate Stress Symptoms: No chest pain or symptoms Stress Summary: The patient's target heart rate was achieved ECG ANALYSIS Resting ECG: Sinus rhythm. Normal conduction. No arrhythmias. Normal repolarization. Stress ECG: No ECG evidence of ischemia with exercise. CONCLUSIONS Exercise capacity fair to good at 6-10 METS. Normal electrocardiographic response to exercise with no evidence of stress induced ischemia Dr. Thomas Zaldivar MD (Electronically Signed) Final Date: 05 December 2023 09:34
== END 2023-11-21 14:30 | disposition home or self-care (01) ==
LOC: EC 10:35 → 3SCARD 16:22 → 5NMEDONC 11-19 11:04 → 4SSUR 11-19 14:35
PROVIDERS: ADMIT Hospitalist; ATTEND Hospitalist
DX: E11.10 Type 2 diabetes mellitus with ketoacidosis without coma (principal); D72.829 Elevated white blood cell count, unspecified; E78.5 Hyperlipidemia, unspecified; F41.9 Anxiety disorder, unspecified; F32.A Depression, unspecified; E66.9 Obesity, unspecified; Z68.30 Body mass index [BMI] 30.0-30.9, adult; Z79.4 Long term (current) use of insulin; Z79.899 Other long term (current) drug therapy
CPT/HCPCS: 36415; 93005 ×2; 80051 ×2; 80053 ×2; 80048; 82150; 82565 ×2; 82803 ×2; 82009; 83605; 83690; 83735 ×2; 84100 ×2; 82947 ×2; 84520 ×2; 84484; 85025 ×2; 81003; 83036; 71046; 74177; J2270 ×2; J1200; J2765; J2405; J3490; J1170; J0131; Q9967; J2470 ×2; 93017; 93306; 96365; 96366; 96367; 96368; 96375; 96376; 99291

== ENCOUNTER 2024-01-06 10:16 | Emergency (ER) | payer BC ==
[2024-01-06 10:27] VITALS: TEMP 98.4
[2024-01-06] MEDS: ONDANSETRON 4 MG/2 ML VIAL IVP STA (11:01)
[2024-01-06] MEDS: SODIUM CHLORIDE 0.9% 2,000 ML IV STA (11:01)
[2024-01-06] MEDS: HYDROmorphone 0.5 MG/0.5 ML SYRINGE IVP STA ×2 (11:01→13:44)
[2024-01-06 11:17] LABS: Basophils % (A) 1 %; Eosinophils # (A) 0.1 k/uL (0-0.7); Eosinophils % (A) 1 %; HCT 47.4 % (34.0-46.0); HGB 15.2 gm/dL (11.4-16.0); Lymphocytes # (A) 1.4 k/uL (1.0-4.8); Lymphocytes % (A) 17 %; MCH 31.9 pg (25.0-35.0); MCV 99.7 fL (80.0-100.0); Monocytes # (A) 0.4 k/uL (0-1.0); Monocytes % (A) 5 %; Neutrophils # (A) 6.1 k/uL (1.3-7.7); Neutrophils % (A) 75 %; Platelet Count 330 k/uL (150-450); RBC 4.76 m/uL (3.80-5.40); RDW 12.8 % (11.5-15.5); VBG PH 7.55 (7.31-7.41); WBC 8.2 k/uL (3.8-10.6)
--- NOTE | 2024-01-06 11:26 | ED ---
Nausea/Vomiting/Diarrhea HPI - General Chief complaint: Nausea/Vomiting/Diarrhea Stated complaint: Vomiting Time Seen by Provider: 01/06/24 10:32 Source: patient, RN notes reviewed Mode of arrival: ambulatory Limitations: no limitations - History of Present Illness Initial comments: 58-year-old female presents emergency department with chief complaint of nausea vomiting hyperglycemia. Patient states she has had issues for the last 1 month she has been in and out of multiple hospitals. She states she has epigastric pain when she vomits states is not rating denies any chest pain shortness of breath she states her blood sugar has been very labile currently around 250. Patient denies any urinary symptoms no diarrhea constipation no reports of feve r. - Related Data Home Medications Medication Instructions Recorded Confirmed Atorvastatin [Lipitor] 10 mg PO DAILY 09/11/23 11/18/23 Escitalopram [Lexapro] 20 mg PO DAILY 09/11/23 11/18/23 INSULIN ASPART (NovoLOG) [NovoLOG See Protocol SQ AC-TID 09/11/23 11/18/23 (formulary)] Insulin Glargine-Yfgn [Semglee 20 unit SQ HS 09/11/23 11/18/23 (Yfgn) Pen] Ciprofloxacin HCl [Cipro] 500 mg PO BID 11/18/23 11/18/23 Ondansetron Odt [Zofran Odt] 8 mg PO TID 11/18/23 11/18/23 Previous Rx's Medication Instructions Recorded Ondansetron Odt [Zofran Odt] 4 mg PO Q8HR PRN #14 tab 01/06/24 Pantoprazole [Protonix] 40 mg PO DAILY #30 tab 01/06/24 Allergies Allergy/AdvReac Type Severity Reaction Status Date / Time No Known Allergies Allergy Verified 01/06/24 10:26 Review of Systems ROS Statement: Those systems with pertinent positive or pertinent negative responses have been documented in the HPI. ROS Other: All systems not noted in ROS Statement are negative. Past Medical History Past Medical History: Diabetes Mellitus Additional Past Medical History / Comment(s): gastritis History of Any Multi-Drug Resistant Organisms: None Reported Past Surgical History: Back Surgery, Cholecystectomy, Hysterectomy, Orthopedic Surgery, Tonsillectomy Additional Past Surgical History / Comment(s): bilateral foot sx- mortons neuroma removal, L shoulder Past Anesthesia/Blood Transfusion Reactions: Postoperative Nausea & Vomiting (PONV) Past Psychological History: No Psychological Hx Reported Smoking Status: Former smoker Past Alcohol Use History: Occasional Past Drug Use History: Marijuana - Past Family History Mother Family Medical History: Cancer Additional Family Medical History / Comment(s): breast cancer Father Additional Family Medical History / Comment(s): AAA General Exam Limitations: no limitations General appearance: alert, in no apparent distress Head exam: Present: atraumatic, normocephalic, normal inspection Eye exam: Present: normal appearance, PERRL, EOMI. Absent: scleral icterus, conjunctival injection, periorbital swelling ENT exam: Present: normal exam, normal oropharynx, mucous membranes moist Neck exam: Present: normal inspection, full ROM. Absent: tenderness, meningismus, lymphadenopathy Respiratory exam: Present: normal lung sounds bilaterally. Absent: respiratory distress, wheezes, rales, rhonchi, stridor Cardiovascular Exam: Present: normal rhythm, tachycardia, normal heart sounds. Absent: systolic murmur, diastolic murmur, rubs, gallop, clicks GI/Abdominal exam: Present: soft, tenderness, normal bowel sounds. Absent: distended, guarding, rebound, rigid Neurological exam: Present: alert Skin exam: Present: warm, dry, intact, normal color. Absent: rash Course Vital Signs 01/06/24 01/06/24 10:24 10:27 Temperature 98.4 F Pulse Rate 118 H 65 Respiratory 18 16 Rate Blood Pressure 174/101 95/56 O2 Sat by Pulse 98 95 Oximetry Medical Decision Making - Medical Decision Making Was pt. sent in by a medical professional or institution (, PA, OPTOELECTRONICS ENGINEER, urgent care, hospital, or fdc...) When possible be specific @ -No Did you speak to anyone other than the patient for history (EMS, parent, family, police, friend...)? What history was obtained from this source @ -No Did you review nursing and triage notes (agree or disagree)? Why? @ -I reviewed and agree with nursing and triage notes Were old charts reviewed (outside hosp., previous admission, EMS record, old EKG, old radiological studies, urgent care reports/EKG's, fdc records)? Report findings @ -No old charts were reviewed Differential Diagnosis (chest pain, altered mental status, abdominal pain women, abdominal pain men, vaginal bleeding, weakness, fever, dyspnea, syncope, headache, dizziness, GI bleed, back pain, seizure, CVA, palpatations, mental health, musculoskeletal)? @ -Differential Abdominal Pain Women: Appendicitis, Cholecystitis, diverticulosis, ischemic bowel, pancreatitis, hepat itis, UTI, gastroenteritis, AAA, incarcerated hernia, bowel obstruction, constipation, inflammatory bowel, hepatitis, peptic ulcer disease, splenic infarction, perforated viscus, vulvitis, ovarian torsion, PID, kidney stone, placenta abruption, this is not meant to be an all-inclusive list EKG interpreted by me (3pts min.). @ -As above X-rays interpreted by me (1pt min.). @ -None done CT interpreted by me (1pt min.). @ -None done U/S interpreted by me (1pt. min.). @ -None done What testing was considered but not performed or refused? (CT, X-rays, U/S, labs)? Why? @ -None What meds were considered but not given or refused? Why? @ -None Did you discuss the management of the patient with other professionals (professionals i.e. , PA, OPTOELECTRONICS ENGINEER, lab, RT, psych nurse, social welfare administrator, bean sorter, teacher, property utilization officer, field nurse case manager)? Give summary @ -No Was smoking cessation discussed for >3mins.? @ -No Was critical care preformed (if so, how long)? @ -No Were there social determinants of health that impacted care today? How? (Homelessness, low income, unemployed, alcoholism, drug addiction, trans portation, low edu. Level, literacy, decrease access to med. care, longterm, rehab)? @ -No Was there de-escalation of care discussed even if they declined (Discuss DNR or withdrawal of care, Hospice)? DNR status @ -No What co-morbidities impacted this encounter? (DM, HTN, Smoking, COPD, CAD, Cancer, CVA, ARF, Chemo, Hep., AIDS, mental health diagnosis, sleep apnea, morbid obesity)? @ -Diabetes Was patient admitted / discharged? Hospital course, mention meds given and route, prescriptions, significant lab abnormalities, going to OR and other pertinent info. @ -Discharge patient feels great improved after IV fluids and antiemetics analgesics. Return repeat laboratory studies show improvement she states she feels comfortable discharge and return parameters zay. Undiagnosed new problem with uncertain prognosis? @ -No Drug Therapy requiring intensive monitoring for toxicity (Heparin, Nitro, Ins ulin, Cardizem)? @ -No Were any procedures done? @ -No Diagnosis/symptom? @ -Nausea vomiting abdominal pain Acute, or Chronic, or Acute on Chronic? @ -Acute Uncomplicated (without systemic symptoms) or Complicated (systemic symptoms)? @ -Uncomplicated Side effects of treatment? @ -No Exacerbation, Progression, or Severe Exacerbation? @ -No Poses a threat to life or bodily function? How? (Chest pain, USA, [place], pneumonia, PE, COPD, DKA, ARF, appy, cholecystitis, CVA, Diverticulitis, Homicidal, Suic idal, threat to staff... and all critical care pts) @ -No - Lab Data Result diagrams: 01/06/24 10:47 01/06/24 15:00 Lab Results 01/06/24 01/06/24 01/06/24 Range/Units 10:47 10:47 10:47 WBC 8.2 (3.8-10.6) k/uL RBC 4.76 (3.80-5.40) m/uL Hgb 15.2 (11.4-16.0) gm/dL Hct 47.4 H (34.0-46.0) % MCV 99.7 (80.0-100.0) fL MCH 31.9 (25.0-35.0) pg MCHC 32.0 (31.0-37.0) g/dL RDW 12.8 (11.5-15.5) % Plt Count 330 (150-450) k/uL MPV 8.0 Neutrophils % 75 % Lymphocytes % 17 % Monocytes % 5 % Eosinophils % 1 % Basophils % 1 % Neutrophils # 6.1 (1.3-7.7) k/uL Lymphocytes # 1.4 (1.0-4.8) k/uL Monocytes # 0.4 (0-1.0) k/uL Eosinophils # 0.1 (0-0.7) k/uL Basophils # 0.0 (0-0.2) k/uL VBG pH (7.31-7.41) VBG pCO2 (37-51) mmHg VBG HCO3 (24-28) mmol/L Sodium 132 L (137-145) mmol/L Potassium 4.5 (3.5-5.1) mmol/L Chloride 104 (98-107) mmol/L Carbon Dioxide 15 L (22-30) mmol/L Anion Gap 13 mmol/L BUN 12 (7-17) mg/dL Creatinine 0.73 (0.52-1.04) mg/dL Est GFR (CKD-EPI)AfAm >90 (>60 ml/min/1.73 sqM) Est GFR (CKD-EPI)NonAf >90 (>60 ml/min/1.73 sqM) Glucose 247 H (74-99) mg/dL Plasma Lactic Acid [place]q (0.7-2.0) mmol/L Calcium 10.0 (8.4-10.2) mg/dL Magnesium 1.8 (1.6-2.3) mg/dL Total Bilirubin 1.3 (0.2-1.3) mg/dL AST 37 H (14-36) U/L ALT 31 (4-34) U/L Alkaline Phosphatase 79 (38-126) U/L Total Protein 7.3 (6.3-8.2) g/dL Albumin 4.8 (3.5-5.0) g/dL Lipase 160 (23-300) U/L Urine Color Yellow Urine Appearance Clear (Clear) Urine pH 6.0 (5.0-8.0) Ur Specific [place] 1.018 (1.001-1.035) Urine Protein 1+ H (Negative) Urine Glucose (UA) 3+ H (Negative) Urine Ketones 3+ H (Negative) Urine Blood Negative (Negative) Urine Nitrite Negative (Negative) Urine Bilirubin Negative (Negative) Urine Urobilinogen <2.0 (<2.0) mg/dL Ur Leukocyte Esterase Negative (Negative) Urine RBC <1 (0-5) /hpf Urine WBC <1 (0-5) /hpf Ur Squamous Epith Cells <1 (0-4) /hpf Urine Mucus Rare H (None) /hpf Acetone, Qual Negative (Negative) 01/06/24 01/06/24 01/06/24 Range/Units 10:47 11:33 15:00 WBC (3.8-10.6) k/uL RBC (3.80-5.40) m/uL Hgb (11.4-16.0) gm/dL Hct (34.0-46.0) % MCV (80.0-100.0) fL MCH (25.0-35.0) pg MCHC (31.0-37.0) g/dL RDW (11.5-15.5) % Plt Count (150-450) k/uL MPV Neutrophils % % Lymphocytes % % Monocytes % % Eosinophils % % Basophils % % Neutrophils # (1.3-7.7) k/uL Lymphocytes # (1.0-4.8) k/uL Monocytes # (0-1.0) k/uL Eosinophils # (0-0.7) k/uL Basophils # (0-0.2) k/uL VBG pH 7.55 H (7.31-7.41) VBG pCO2 20 L (37-51) mmHg VBG HCO3 17 L (24-28) mmol/L Sodium 133 L (137-145) mmol/L Potassium 4.2 (3.5-5.1) mmol/L Chloride 108 H (98-107) mmol/L Carbon Dioxide 18 L (22-30) mmol/L Anion Gap 7 mmol/L BUN 10 (7-17) mg/dL Creatinine 0.61 (0.52-1.04) mg/dL Est GFR (CKD-EPI)AfAm >90 (>60 ml/min/1.73 sqM) Est GFR (CKD-EPI)NonAf >90 (>60 ml/min/1.73 sqM) Glucose 141 H (74-99) mg/dL Plasma Lactic Acid [place] 1.0 (0.7-2.0) mmol/L Calcium 8.4 (8.4-10.2) mg/dL Magnesium (1.6-2.3) mg/dL Total Bilirubin (0.2-1.3) mg/dL AST (14-36) U/L ALT (4-34) U/L Alkaline Phosphatase (38-126) U/L Total Protein (6.3-8.2) g/dL Albumin (3.5-5.0) g/dL Lipase (23-300) U/L Urine Color Urine Appearance (Clear) Urine pH (5.0-8.0) Ur Specific [place] (1.001-1.035) Urine Protein (Negative) Urine Glucose (UA) (Negative) Urine Ketones (Negative) Urine Blood (Negative) Urine Nitrite (Negative) Urine Bilirubin (Negative) Urine Urobilinogen (<2.0) mg/dL Ur Leukocyte Esterase (Negative) Urine RBC (0-5) /hpf Urine WBC (0-5) /hpf Ur Squamous Epith Cells (0-4) /hpf Urine Mucus (None) /hpf Acetone, Qual (Negative) - EKG Data -: EKG Interpreted by Me EKG Comments: EKG performed at 11: 08 sinus rhythm with a rate of 95 MS 155 QRS 85 QT/QTc 3 73/425 Disposition Clinical Impression: Dehydration, Nausea & vomiting Disposition: HOME SELF-CARE Condition: Stable Instructions (If sedation given, give patient instructions): Acute Nausea and Vomiting (ED) Additional Instructions: Please return to the Emergency Department if symptoms worsen or any other concerns. Prescriptions: Pantoprazole [Protonix] 40 mg PO DAILY #30 tab Ondansetron Odt [Zofran Odt] 4 mg PO Q8HR PRN #14 tab PRN Reason: Nausea Is patient prescribed a controlled substance at d/c from ED?: No Referrals: None,Stated [Primary Care Provider] - 1-2 days Time of Disposition: 15:47
[2024-01-06 12:19] VITALS: RESP 16
[2024-01-06 12:48] LABS: ALT 31 U/L (4-34); African American GFR (CKD) >90 (>60 ml/min/1.73 sqM); Albumin 4.8 g/dL (3.5-5.0); Anion Gap 13 mmol/L; Blood Urea Nitrogen 12 mg/dL (7-17); Carbon Dioxide 15 mmol/L (22-30); Chloride 104 mmol/L (98-107); Glucose 247 mg/dL (74-99); Lipase 160 U/L (23-300); Non-African American GFR(CKD) >90 (>60 ml/min/1.73 sqM); Sodium 132 mmol/L (137-145); Total Bilirubin 1.3 mg/dL (0.2-1.3); Total Protein 7.3 g/dL (6.3-8.2)
[2024-01-06 12:50] LABS: AST 37 U/L (14-36); Alkaline Phosphatase 79 U/L (38-126); Magnesium 1.8 mg/dL (1.6-2.3); Potassium 4.5 mmol/L (3.5-5.1)
[2024-01-06 13:00] LABS: Appearance,Urine Clear (Clear); Bilirubin,Urine Negative (Negative); Blood,Urine Negative (Negative); Color,Urine Yellow; Glucose,Urine (UA) 3+ (Negative); Leukocyte Esterase,Urine Negative (Negative); Mucus,Urine Rare /hpf; Nitrite,Urine Negative (Negative); Protein,Urine 1+ (Negative); RBC,Urine <1 /hpf (0-5); Specific Gravity,Urine 1.018 (1.001-1.035); Squamous Epithelial Cell,Urine <1 /hpf (0-4); Urobilinogen,Urine <2.0 mg/dL (<2.0); WBC,Urine <1 /hpf (0-5)
[2024-01-06 13:33] LABS: Ketones,Urine 3+ (Negative)
[2024-01-06] MEDS: diphenhydrAMINE 50 MG/ML 1 ML VIAL IVP STA (13:44)
[2024-01-06] MEDS: SODIUM CHLORIDE 0.9% 500 ML 500 ML IV ONE (13:44)
[2024-01-06] MEDS: METOCLOPRAMIDE 5 MG/ML 2 ML VIAL IVP STA (13:44)
[2024-01-06 15:32] LABS: African American GFR (CKD) >90 (>60 ml/min/1.73 sqM); Anion Gap 7 mmol/L; Blood Urea Nitrogen 10 mg/dL (7-17); Calcium 8.4 mg/dL (8.4-10.2); Carbon Dioxide 18 mmol/L (22-30); Chloride 108 mmol/L (98-107); Glucose 141 mg/dL (74-99); Non-African American GFR(CKD) >90 (>60 ml/min/1.73 sqM); Potassium 4.2 mmol/L (3.5-5.1); Sodium 133 mmol/L (137-145)
[2024-01-06 16:29] VITALS: BP 139/84; PULSE 80
== END 2024-01-06 16:29 | disposition home or self-care (01) ==
LOC: EC 10:16
CPT/HCPCS: 36415; 80048; 80053; 81001; 82009; 82803; 83605; 83690; 83735; 85025; 93005; 96361; 96374; 96375; 96376; 99284

== ENCOUNTER 2024-01-07 14:32 | Observation (INO) | payer BC ==
[2024-01-07 14:38] LABS: Glucose,Whole Blood 152 mg/dL (70-110)
[2024-01-07] MEDS: MORPHINE SULFATE 4 MG/ML SYRINGE IVP STA (15:27)
[2024-01-07] MEDS: METOCLOPRAMIDE 5 MG/ML 2 ML VIAL IVP STA (15:28)
[2024-01-07] MEDS: diphenhydrAMINE 50 MG/ML 1 ML VIAL IVP STA (15:28)
[2024-01-07 15:30] LABS: Basophils % (A) 0 %; Eosinophils # (A) 0.2 k/uL (0-0.7); Eosinophils % (A) 2 %; HCT 47.7 % (34.0-46.0); HGB 15.1 gm/dL (11.4-16.0); Lymphocytes % (A) 11 %; MCH 31.5 pg (25.0-35.0); MCHC 31.7 g/dL (31.0-37.0); MCV 99.1 fL (80.0-100.0); Mean Platelet Volume 8.3; Monocytes # (A) 0.5 k/uL (0-1.0); Monocytes % (A) 5 %; Neutrophils # (A) 7.5 k/uL (1.3-7.7); Neutrophils % (A) 80 %; Platelet Count 325 k/uL (150-450); RBC 4.82 m/uL (3.80-5.40); RDW 12.7 % (11.5-15.5); WBC 9.3 k/uL (3.8-10.6)
[2024-01-07] MEDS: SODIUM CHLORIDE 0.9% 1,000 ML IV ONE ×2 (15:31→19:23)
[2024-01-07 15:40] LABS: Sodium 134 mmol/L (137-145)
[2024-01-07 16:16] LABS: VBG PH 7.43 (7.31-7.41)
[2024-01-07 16:19] LABS: ALT 33 U/L (4-34); African American GFR (CKD) >90 (>60 ml/min/1.73 sqM); Anion Gap 22 mmol/L; Blood Urea Nitrogen 10 mg/dL (7-17); Calcium 10.1 mg/dL (8.4-10.2); Carbon Dioxide 13 mmol/L (22-30); Chloride 99 mmol/L (98-107); Glucose 163 mg/dL (74-99); Lipase 120 U/L (23-300); Non-African American GFR(CKD) 84 (>60 ml/min/1.73 sqM); Total Bilirubin 1.3 mg/dL (0.2-1.3)
[2024-01-07 16:23] LABS: AST 49 U/L (14-36); Albumin 5.3 g/dL (3.5-5.0); Alkaline Phosphatase 100 U/L (38-126); Potassium 4.7 mmol/L (3.5-5.1); Total Protein 8.1 g/dL (6.3-8.2)
[2024-01-07] MEDS: HYDROmorphone 1 MG/ML 1 ML SYRINGE IVP STA (16:49)
[2024-01-07 17:03] LABS: Appearance,Urine Clear (Clear); Bilirubin,Urine Negative (Negative); Blood,Urine Negative (Negative); Color,Urine Colorless; Glucose,Urine (UA) 2+ (Negative); Leukocyte Esterase,Urine Negative (Negative); Nitrite,Urine Negative (Negative); PH, Urine 5.5 (5.0-8.0); Protein,Urine Trace (Negative); Urobilinogen,Urine <2.0 mg/dL (<2.0)
[2024-01-07 17:08] LABS: Ketones,Urine 2+ (Negative)
--- NOTE | 2024-01-07 18:27 | ED ---
General Adult HPI - General Chief complaint: Recheck/Abnormal Lab/Rx Stated complaint: low blood sugar/dizzy/diabetic Time Seen by Provider: 01/07/24 14:48 Source: patient Mode of arrival: ambulatory Limitations: no limitations - History of Present Illness Initial comments: 58-year-old female with past medical history of diabetes, gastroparesis who presents to the emergency department reporting intractable nausea vomiting. Patient was seen in the emergency department yesterday for same complaint. She received IV fluids and was discharged home. She attempted to eat some chicken broth this morning and threw it up. Friend at bedside states that the patient has not had anything to eat in the past 4 days. She has been hospitalized many times for this complaint. She was diagnosed with gastroparesis. States that she has very labile blood sugars. She found that her glucose was low at home today and this is what prompted her to come up to the hospital. She admits to generalized abdominal cramping. No fevers. Has had several episodes of nonbilious vomiting. Denies any urinary complaints. Has been in DKA previously. No other alleviating, precipitating or modifying factors - Related Data Home Medications Medication Instructions Recorded Confirmed Atorvastatin [Lipitor] 10 mg PO DAILY 09/11/23 01/07/24 Escitalopram [Lexapro] 20 mg PO DAILY 09/11/23 01/07/24 INSULIN ASPART (NovoLOG) [NovoLOG See Protocol SQ ACHS 09/11/23 01/07/24 (formulary)] Famotidine [Pepcid] 20 mg PO BID 01/07/24 01/07/24 Insulin Glargine,Hum.rec.anlog 25 units SQ HS 01/07/24 01/07/24 [Lantus Solostar Pen] Sulfamethox-Tmp 800-160Mg [Bactrim 1 tab PO BID 01/07/24 01/07/24 DS 800-160 mg] Previous Rx's Medication Instructions Recorded Ondansetron Odt [Zofran Odt] 4 mg PO Q8HR PRN #14 tab 01/06/24 Pantoprazole [Protonix] 40 mg PO DAILY #30 tab 01/06/24 Allergies Allergy/AdvReac Type Severity Reaction Status Date / Time No Known Allergies Allergy Verified 01/07/24 19:02 Review of Systems ROS Statement: Those systems with pertinent positive or pertinent negative responses have been documented in the HPI. ROS Other: All systems not noted in ROS Statement are negative. Past Medical History Past Medical History: Diabetes Mellitus Additional Past Medical History / Comment(s): gastritis History of Any Multi-Drug Resistant Organisms: None Reported Past Surgical History: Back Surgery, Cholecystectomy, Hysterectomy, Orthopedic Surgery, Tonsillectomy Additional Past Surgical History / Comment(s): bilateral foot sx- mortons neuroma removal, L shoulder Past Anesthesia/Blood Transfusion Reactions: Postoperative Nausea & Vomiting (PONV) Past Psychological History: No Psychological Hx Reported Smoking Status: Former smoker Past Alcohol Use History: Occasional Past Drug Use History: Marijuana - Past Family History Mother Family Medical History: Cancer Additional Family Medical History / Comment(s): breast cancer Father Additional Family Medical History / Comment(s): AAA General Exam Limitations: no limitations General appearance: alert, in no apparent distress Head exam: Present: atraumatic, normocephalic, normal inspection Eye exam: Present: normal appearance, PERRL, EOMI. Absent: scleral icterus, conjunctival injection, periorbital swelling ENT exam: Present: normal exam, mucous membranes moist Neck exam: Present: normal inspection. Absent: tenderness, meningismus, lymphadenopathy Respiratory exam: Present: normal lung sounds bilaterally. Absent: respiratory distress, wheezes, rales, rhonchi, stridor Cardiovascular Exam: Present: regular rate, normal rhythm, normal heart sounds. Absent: systolic murmur, diastolic murmur, rubs, gallop, clicks GI/Abdominal exam: Present: soft, normal bowel sounds. Absent: distended, tenderness, guarding, rebound, rigid Extremities exam: Present: normal inspection, full ROM, normal capillary refill. Absent: tenderness, pedal edema, joint swelling, calf tenderness Back exam: Present: normal inspection Neurological exam: Present: alert, oriented X3, CN II-XII intact Psychiatric exam: Present: normal affect, normal mood Skin exam: Present: warm, dry, intact, normal color. Absent: rash Course Vital Signs 01/07/24 01/07/24 01/07/24 14:33 15:47 19:19 Temperature 98.2 F 100.5 F H Pulse Rate 94 80 Respiratory 18 14 Rate Blood Pressure 195/125 122/69 O2 Sat by Pulse 96 96 Oximetry 09/22/24 09/22/24 21:13 21:58 Temperature 99.2 F 100.0 F H Pulse Rate 89 68 Respiratory 18 14 Rate Blood Pressure 135/89 120/64 O2 Sat by Pulse 96 96 Oximetry Medical Decision Making - Medical Decision Making Was pt. sent in by a medical professional or institution (, PA, ESL TEACHER, urgent care, hospital, or long term...) When possible be specific @ -No Did you speak to anyone other than the patient for history (EMS, parent, family, police, friend...)? What history was obtained from this source @ -I spoke with patient's at bedside Did you review nursing and triage notes (agree or disagree)? Why? @ -I reviewed and agree with nursing and triage notes Were old charts reviewed (outside hosp., previous admission, EMS record, old EKG, old radiological studies, urgent care reports/EKG's, long term records)? Report findings @ -I reviewed patient's ED visit from yesterday where she had laboratory studies completed Differential Diagnosis (chest pain, altered mental status, abdominal pain women, abdominal pain men, vaginal bleeding, weakness, fever, dyspnea, syncope, he adache, dizziness, GI bleed, back pain, seizure, CVA, palpatations, mental health, musculoskeletal)? @ -Differential Abdominal Pain Men: Appendicitis, cholecystitis, diverticulosis, ischemic bowel, pancreatitis, hepatitis, UTI, gastroenteritis, AAA, incarcerated hernia, bowel obstruction, constipation, inflammatory bowel, hepatitis, peptic ulcer disease, splenic infarction, perforated viscus, testicular torsion, this is not meant to be an all-inclusive list EKG interpreted by me (3pts min.). @ -Yes and demonstrates sinus rhythm with rate of 97. HI interval 136. QRS 97. QTc of 429. No acute ST segment elevations or depressions X-rays interpreted by me (1pt min.). @ -None done CT interpreted by me (1pt min.). @ -None done U/S interpreted by me (1pt. min.). @ -None done What testing was considered but not performed or refused? (CT, X-rays, U/S, labs)? Why? @ -None What meds were considered but not given or refused? Why? @ -Insulin drip was considered however patient has normal glucose at this time and therefore will be just provided fluids for her ketonuria Did you discuss the management of the patient with other professionals (professionals i.e. , PA, ESL TEACHER, lab, RT, psych nurse, elementary school social worker, industrial welder, teacher, helicopter officer, case managers)? Give summary @ -Spoke with Dr. Langford for admission Was smoking cessation discussed for >3mins.? @ -No Was critical care preformed (if so, how long)? @ -No Were there social determinants of health that impacted care today? How? (Homelessness, low income, unemployed, alcoholism, drug addiction, transportation, low edu. Level, literacy, decrease access to med. care, skilled nursing, rehab)? @ -No Was there de-escalation of care discussed even if they declined (Discuss DNR or withdrawal of care, Hospice)? DNR status @ -No What co-morbidities impacted this encounter? (DM, HTN, Smoking, COPD, CAD, Cancer, CVA, ARF, Chemo, Hep., AIDS, mental health diagnosis, sleep apnea, morbid obesity)? @ -Diabetes mellitus Was patient admitted / discharged? Hospital course, mention meds given and route, prescriptions, significant lab abnormalities, going to OR and other pertinent info. @ -Upon arrival patient seen and evaluated in room 4. Thorough history and physical exam was performed. IV access was established. Patient was given 2 L bolus normal saline. She was given Reglan and Benadryl for nausea. Patient continues to have nausea and therefore she is given Zofran. Patient reevaluated. Still feels nauseated as if she cannot tolerate any oral intake. She does have a high anion gap with low CO2. Glucose is within normal range. I do feel that the patient would benefit from admission with IV fluids and antiemetics. Patient was agreeable to this. Spoke with Dr. Madrigal for admission Undiagnosed new problem with uncertain prognosis? @ -No Drug Therapy requiring intensive monitoring for toxicity (Heparin, Nitro, In sulin, Cardizem)? @ -No Were any procedures done? @ -No Diagnosis/symptom? @ -Acute nausea, history of gastroparesis Acute, or Chronic, or Acute on Chronic? @ -Acute on chronic Uncomplicated (without systemic symptoms) or Complicated (systemic symptoms)? @ -Complicated Side effects of treatment? @ -No Exacerbation, Progression, or Severe Exacerbation? @ -Yes Poses a threat to life or bodily function? How? (Chest pain, [place], [place], pneumonia, PE, COPD, DKA, ARF, appy, cholecystitis, CVA, Diverticulitis, Homicidal, Suicidal, threat to staff... and all critical care pts) @ -No - Lab Data Result diagrams: 01/08/24 03:00 01/08/24 03:00 Lab Results 01/07/24 01/07/24 01/07/24 Range/Units 14:37 15:00 15:00 WBC 9.3 (3.8-10.6) k/uL RBC 4.82 (3.80-5.40) m/uL Hgb 15.1 (11.4-16.0) gm/dL Hct 47.7 H (34.0-46.0) % MCV 99.1 (80.0-100.0) fL MCH 31.5 (25.0-35.0) pg MCHC 31.7 (31.0-37.0) g/dL RDW 12.7 (11.5-15.5) % Plt Count 325 (150-450) k/uL MPV 8.3 Neutrophils % 80 % Lymphocytes % 11 % Monocytes % 5 % Eosinophils % 2 % Basophils % 0 % Neutrophils # 7.5 (1.3-7.7) k/uL Lymphocytes # 1.0 (1.0-4.8) k/uL Monocytes # 0.5 (0-1.0) k/uL Eosinophils # 0.2 (0-0.7) k/uL Basophils # 0.0 (0-0.2) k/uL VBG pH (7.31-7.41) VBG pCO2 (37-51) mmHg VBG HCO3 (24-28) mmol/L Sodium 134 L (137-145) mmol/L Potassium 4.7 (3.5-5.1) mmol/L Chloride 99 (98-107) mmol/L Carbon Dioxide 13 L (22-30) mmol/L Anion Gap 22 mmol/L BUN 10 (7-17) mg/dL Creatinine 0.77 (0.52-1.04) mg/dL Est GFR (CKD-EPI)AfAm >90 (>60 ml/min/1.73 sqM) Est GFR (CKD-EPI)NonAf 84 (>60 ml/min/1.73 sqM) Glucose 163 H (74-99) mg/dL POC Glucose (mg/dL) 152 H (70-110) mg/dL POC Glu Plastic Mixer ID Kelly Woodall Calcium 10.1 (8.4-10.2) mg/dL Total Bilirubin 1.3 (0.2-1.3) mg/dL AST 49 H (14-36) U/L ALT 33 (4-34) U/L Alkaline Phosphatase 100 (38-126) U/L Troponin I (0.000-0.034) ng/mL Total Protein 8.1 (6.3-8.2) g/dL Albumin 5.3 H (3.5-5.0) g/dL Lipase 120 (23-300) U/L Urine Color Urine Appearance (Clear) Urine pH (5.0-8.0) Ur Specific [place] (1.001-1.035) Urine Protein (Negative) Urine Glucose (UA) (Negative) Urine Ketones (Negative) Urine Blood (Negative) Urine Nitrite (Negative) Urine Bilirubin (Negative) Urine Urobilinogen (<2.0) mg/dL Ur Leukocyte Esterase (Negative) 01/07/24 01/07/24 01/07/24 Range/Units 15:00 15:47 16:45 WBC (3.8-10.6) k/uL RBC (3.80-5.40) m/uL Hgb (11.4-16.0) gm/dL Hct (34.0-46.0) % MCV (80.0-100.0) fL MCH (25.0-35.0) pg MCHC (31.0-37.0) g/dL RDW (11.5-15.5) % Plt Count (150-450) k/uL MPV Neutrophils % % Lymphocytes % % Monocytes % % Eosinophils % % Basophils % % Neutrophils # (1.3-7.7) k/uL Lymphocytes # (1.0-4.8) k/uL Monocytes # (0-1.0) k/uL Eosinophils # (0-0.7) k/uL Basophils # (0-0.2) k/uL VBG pH 7.43 H (7.31-7.41) VBG pCO2 29 L (37-51) mmHg VBG HCO3 19 L (24-28) mmol/L Sodium (137-145) mmol/L Potassium (3.5-5.1) mmol/L Chloride (98-107) mmol/L Carbon Dioxide (22-30) mmol/L Anion Gap mmol/L BUN (7-17) mg/dL Creatinine (0.52-1.04) mg/dL Est GFR (CKD-EPI)AfAm (>60 ml/min/1.73 sqM) Est GFR (CKD-EPI)NonAf (>60 ml/min/1.73 sqM) Glucose (74-99) mg/dL POC Glucose (mg/dL) (70-110) mg/dL POC Glu Plastic Mixer ID Calcium (8.4-10.2) mg/dL Total Bilirubin (0.2-1.3) mg/dL AST (14-36) U/L ALT (4-34) U/L Alkaline Phosphatase (38-126) U/L Troponin I <0.012 (0.000-0.034) ng/mL Total Protein (6.3-8.2) g/dL Albumin (3.5-5.0) g/dL Lipase (23-300) U/L Urine Color Colorless Urine Appearance Clear (Clear) Urine pH 5.5 (5.0-8.0) Ur Specific [place] 1.010 (1.001-1.035) Urine Protein Trace H (Negative) Urine Glucose (UA) 2+ H (Negative) Urine Ketones 2+ H (Negative) Urine Blood Negative (Negative) Urine Nitrite Negative (Negative) Urine Bilirubin Negative (Negative) Urine Urobilinogen <2.0 (<2.0) mg/dL Ur Leukocyte Esterase Negative (Negative) Disposition Clinical Impression: Intractable nausea, Nausea & vomiting, Dehydration Disposition: ADMITTED IP TO THIS [facility] Condition: Stable Is patient prescribed a controlled substance at d/c from ED?: No Time of Disposition: 18:28 Decision to Admit Reason: Admit from EC Decision Date: 01/07/24 Decision Time: 18:28
[2024-01-07] MEDS ORDERED: ONDANSETRON 4 MG/2 ML VIAL IVP PRN (18:42)
[2024-01-07] MEDS ORDERED: NALOXONE 0.4 MG/ML 1 ML VIAL IV PRN (18:42)
[2024-01-07] MEDS: SODIUM CHLORIDE 0.9% 1,000 ML IV SCH (19:22)
[2024-01-07] MEDS: ACETAMINOPHEN TAB 325 MG TAB PO PRN (22:41)
[2024-01-07] MEDS: SULFAMETHOX-TMP 800-160MG 1 EACH TAB PO SCH (23:21)
--- NOTE | 2024-01-08 00:19 | P.HPIM ---
History of Present Illness H&P Date: 01/07/24 Patient is a 58-year-old female with a PMH of type II DM (diagnosed 20 years ago), gastroparesis, hyperlipidemia, and depression who presents to the emergency room with complaints of nausea and vomiting. Patient reports that she has been having persistent nausea and vomiting over the past 4 to 5 days. She was seen in the emergency room for similar complaints yesterday at which point she was given IV hydration and was discharged. Patient notes however that she has been unable to tolerate most foods, which is also causing her to become hypoglycemic. Reports that her blood glucose was in the 60s at home earlier today. She does report some epigastric abdominal discomfort which she attribute s to her persistent vomiting. Reports that it is 6 out of 10 at the time of interview and is achy in nature and nonradiating. Also reports being diagnosed with a UTI 7 days ago for which she just completed a course of Bactrim as outpatient. Denying any current UTI symptoms. Denied experiencing fever, chest pain, shortness of breath, diarrhea. Denies hematemesis or coffee-ground emesis. Patient reports that although she has been suffering from which she was informed were symptoms from gastroparesis for the past 10 years, that she has not been able to see anyone for additional treatment modalities such as a gastric stimulator. She had also undergone an EGD a few months prior and was informed that she had gastritis. EKG in the emergency room revealed sinus rhythm with a left anterior fascicular block with criteria for LVH at [address]/T wave changes noted as reviewed by me. Laboratory evaluation revealed a UA with 2+ ketones and 2+ glucose with sodium 137, CO2 13, anion gap 22, with glucose 150. ED documentation reviewed and case discussed with ED provider. Review of systems: Pertinent positives and negatives as discussed in HPI, a complete review of systems was performed and all other systems are negative. Physical examination: Vital signs reviewed General: non toxic, no distress, appears at stated age, obese Derm: no unusual rashes/lesions, warm Head: atraumatic, normocephalic, symmetric Eyes: EOMI, no lid lag, anicteric sclera, pupils equal round reactive to light ENT: Nose and ears atraumatic Neck: No cervical lymphadenopathy, trachea midline, supple Mouth: no lip lesion, mucus membranes moist Cardiovascular: S1S2 reg, no murmur, positive dorsalis pedis pulse bilateral, no edema Lungs: CTA bilateral, no rhonchi, no rales, no accessory muscle use Abdominal: soft, mild epigastric tenderness to palpation, no guarding Ext: muscle strength 5 out of 5 in all 4 extremities grossly, no gross muscle atrophy, no contractures, Neuro: CN II-XI grossly intact, no gross focal neuro deficits Psych: Alert, oriented, appropriate affect Assessment: Intractable nausea and vomiting, suspect secondary to gastroparesis High anion gap metabolic acidosis, likely starvation ketosis Chronic conditions: Type II DM, hyperlipidemia, depression Imaging: EKG in the emergency room revealed sinus rhythm with a left anterior fascicular block with criteria for LVH at [address]/T wave changes noted as reviewed by me. Data Review: Laboratory evaluation revealed a UA with 2+ ketones and 2+ glucose with sodium 137, CO2 13, anion gap 22, with glucose 150. Plan: Continue with antiemetics with Zofran 4 mg IVP as needed Continue IV fluids normal saline 130 mL/h Monitor BMP Low-dose insulin sliding scale with blood glucose monitoring Clear liquid diet C/w Protonix 40 mg IVP qd DVT prophylaxis: Lovenox Subq The patient is admitted with an anticipated less than 2 midnight stay for evaluation of nausea and vomiting CODE STATUS: Full Code Discussed with: Patient Anticipated discharge place: Home Past Medical History Past Medical History: Diabetes Mellitus Additional Past Medical History / Comment(s): gastritis History of Any Multi-Drug Resistant Organisms: None Reported Past Surgical History: Back Surgery, Cholecystectomy, Hysterectomy, Orthopedic Surgery, Tonsillectomy Additional Past Surgical History / Comment(s): bilateral foot sx- martons neuroma removal, L shoulder Past Anesthesia/Blood Transfusion Reactions: Postoperative Nausea & Vomiting (PONV) Past Psychological History: No Psychological Hx Reported Smoking Status: Former smoker Past Alcohol Use History: None Reported - Past Family History Mother Family Medical History: Cancer Additional Family Medical History / Comment(s): breast cancer Father Additional Family Medical History / Comment(s): AAA Medications and Allergies Home Medications Medication Instructions Recorded Confirmed Type Atorvastatin [Lipitor] 10 mg PO DAILY 09/11/23 01/07/24 History Escitalopram [Lexapro] 20 mg PO DAILY 09/11/23 01/07/24 History INSULIN ASPART (NovoLOG) [NovoLOG See Protocol SQ ACHS 09/11/23 01/07/24 History (formulary)] Ondansetron Odt [Zofran Odt] 4 mg PO Q8HR PRN #14 tab 01/06/24 01/07/24 Rx Pantoprazole [Protonix] 40 mg PO DAILY #30 tab 01/06/24 01/07/24 Rx Famotidine [Pepcid] 20 mg PO BID 01/07/24 01/07/24 History Insulin Glargine,Hum.rec.anlog 25 units SQ HS 01/07/24 01/07/24 History [Lantus Solostar Pen] Sulfamethox-Tmp 800-160Mg [Bactrim 1 tab PO BID 01/07/24 01/07/24 History DS 800-160 mg] Allergies Allergy/AdvReac Type Severity Reaction Status Date / Time No Known Allergies Allergy Verified 01/07/24 19:02 Physical Exam Vitals: Vital Signs Temp Pulse Resp BP Pulse Ox 01/07/24 21:58 100.0 F H 68 14 120/64 96 01/07/24 21:13 99.2 F 89 18 135/89 96 01/07/24 19:19 100.5 F H 80 14 122/69 96 01/07/24 15:47 94 18 195/125 96 01/07/24 14:33 98.2 F Intake and Output 01/07/24 01/07/24 01/07/24 06:59 14:59 22:59 Other: Weight 90.718 kg 90.718 kg Results CBC & Chem 7: 01/07/24 15:00 01/08/24 00:45 Labs: Abnormal Lab Results - Last 24 Hours (Table) 01/07/24 01/07/24 01/07/24 Range/Units 14:37 15:00 15:00 Hct 47.7 H (34.0-46.0) % VBG pH (7.31-7.41) VBG pCO2 (37-51) mmHg VBG HCO3 (24-28) mmol/L Sodium 134 L (137-145) mmol/L Carbon Dioxide 13 L (22-30) mmol/L Glucose 163 H (74-99) mg/dL POC Glucose (mg/dL) 152 H (70-110) mg/dL AST 49 H (14-36) U/L Albumin 5.3 H (3.5-5.0) g/dL Urine Protein (Negative) Urine Glucose (UA) (Negative) Urine Ketones (Negative) 01/07/24 01/07/24 Range/Units 15:47 16:45 Hct (34.0-46.0) % VBG pH 7.43 H (7.31-7.41) VBG pCO2 29 L (37-51) mmHg VBG HCO3 19 L (24-28) mmol/L Sodium (137-145) mmol/L Carbon Dioxide (22-30) mmol/L Glucose (74-99) mg/dL POC Glucose (mg/dL) (70-110) mg/dL AST (14-36) U/L Albumin (3.5-5.0) g/dL Urine Protein Trace H (Negative) Urine Glucose (UA) 2+ H (Negative) Urine Ketones 2+ H (Negative) Thrombosis Risk Factor Assmnt - Choose All That Apply Each Factor Represents 1 point: Age 41-60 years, Obesity (BMI >25) Thrombosis Risk Factor Assessment Total Risk Factor Score: 2 Thrombosis Risk Factor Assessment Level: Low Risk
[2024-01-08 01:05] LABS: Glucose,Whole Blood 115 mg/dL (70-110)
[2024-01-08 01:26] LABS: African American GFR (CKD) >90 (>60 ml/min/1.73 sqM); Blood Urea Nitrogen 6 mg/dL (7-17); Calcium 8.4 mg/dL (8.4-10.2); Chloride 108 mmol/L (98-107); Glucose 113 mg/dL (74-99); Non-African American GFR(CKD) >90 (>60 ml/min/1.73 sqM); Sodium 134 mmol/L (137-145)
[2024-01-08 01:41] LABS: Anion Gap 5 mmol/L; Carbon Dioxide 21 mmol/L (22-30)
[2024-01-08 05:45] LABS: Glucose,Whole Blood 116 mg/dL (70-110)
[2024-01-08] MEDS: INSULIN ASPART (NovoLOG) 100 UNIT/ML VIAL SQ SCH (05:54)
[2024-01-08 08:41] LABS: Basophils # (A) 0.08 X 10*3/uL (0.00-0.10); Basophils % (A) 1.3 %; Eosinophils # (A) 0.27 X 10*3/uL (0.04-0.35); Eosinophils % (A) 4.2 %; HCT 37.9 % (37.2-46.3); HGB 12.4 g/dL (12.0-15.0); Lymphocytes # (A) 1.88 X 10*3/uL (0.90-5.00); Lymphocytes % (A) 29.4 %; MCH 32.2 pg (27.0-32.0); MCHC 32.7 g/dL (32.0-37.0); MCV 98.4 FL (80.0-97.0); Monocytes # (A) 0.83 X 10*3/uL (0.20-1.00); NRBC Per 100 WBC 0 X 10*3/uL (0.00-0.01); Neutrophils # (A) 3.28 X 10*3/uL (1.80-7.70); Neutrophils % (A) 51.2 %; Platelet Count 262 X 10*3/uL (140-440); RBC 3.85 X 10*6/uL (4.10-5.20); RDW 13.4 % (11.5-14.5)
[2024-01-08 09:03] LABS: Blood Urea Nitrogen 5.6 mg/dL (9.0-27.0); Glucose 114 mg/dL (70-110)
[2024-01-08 09:04] LABS: Carbon Dioxide 20.7 mmol/L (21.6-31.8); Chloride 104 mmol/L (96-109); Sodium 135 mmol/L (135-145)
[2024-01-08] MEDS: ENOXAPARIN 40 MG/0.4 ML SYRINGE SQ SCH (10:08)
[2024-01-08] MEDS: PANTOPRAZOLE 40 MG/10 ML VIAL IV SCH (10:08)
[2024-01-08] MEDS: ESCITALOPRAM 20 MG TAB PO SCH (10:08)
[2024-01-08] MEDS: ATORVASTATIN 10 MG TAB PO SCH (10:08)
[2024-01-08 12:12] LABS: Glucose,Whole Blood 142 mg/dL (70-110)
--- NOTE | 2024-01-08 14:38 | P.PN ---
Subjective Progress Note Date: 01/08/24 Hospital course: Patient is a very pleasant 58-year-old female with a past medical history of type 2 insulin-dependent diabetes mellitus, gastroparesis, GERD, depression, and hyperlipidemia. She presented to the emergency department with a chief complaint of abdominal pain, nausea, and vomiting x 5 days. Upon arrival to our facility, patient underwent evaluation in the emergency department. Vital signs upon arrival show blood pressure 195/125, heart rate 94, respiratory rate 18, initial temp 98.2, and SpO2 of 96% on room air. Shortly after arrival patient spiked elevated temp of 100.5 F. EKG was completed showing normal sinus rhythm at 97 bpm with no significant T wave or ST abnormality showing no signs of acute ischemia upon personal review and interpretation. Labs completed and reviewed. CBC unremarkable. BMP showing hyponatremia with sodium of 134, hypocarbia with bicarb of 13, glucose of 163, and liver profile showing elevated AST of 49 otherwise normal findings. Lipase was 120. Troponin was negative at less than 0.012. Urinalysis was positive for ketones and glucose but negative for infection. COVID PCR negative. Patient was provided with IV fluid hydration. She was admitted under our services for high anion gap metabolic acidosis and intractable nausea and vomiting. Physical exam: Patient seen and fully evaluated at bedside. She reports full resolution of previous reported epigastric pain and states nausea and vomiting is currently controlled. Patient tolerating clear liquid diet as discussed with patient will advance as she tolerates. Will continue with IV fluid hydration and close monitoring and plan for likely discharge home tomorrow morning. Vital signs reviewed and stable. General: Nontoxic, no distress and appears stated age. Derm: Skin warm and dry, normal coloration for ethnicity. Head: Atraumatic, normocephalic and symmetric. Eyes: EOM's intact, no lid lag, and anicteric sclera Mouth: no lip lesions, mucus membranes moist Cardiovascular: regular rate and rhythm with normal S1S2, no murmur, positive posterior tibial pulses bilaterally, and cap refill < 2 seconds. Lungs: Respirations even, regular, and unlabored on room air. Lungs CTA bilaterally, no rhonchi, no rales, no wheezing, and no accessory muscle usage. Abdominal: soft, nontender to palpation, no guarding, no appreciable organomegaly Ext: ROM intact. No gross muscle atrophy, no edema, no contractures Neuro: Speech clear, face symmetrical and CN II-XII grossly intact with no noted focal neuro deficits Psych: Alert and oriented to person, place, time, and situation. Appropriate and pleasant affect. Assessment and Plan of Care: Intractable nausea and vomiting, suspect gastroparesis High anion gap metabolic alkalosis Gastroparesis Insulin-dependent diabetes mellitus GERD -Clear liquid diet, will advance as patient tolerates. -Continue with IV fluid hydration with 0.9% normal saline at 130 cc/h. -Symptomatic care and pain management. -Antiemetic with Zofran 4 mg IVP every 8 hours as needed for nausea and vomiting. -GI prophylaxis with Protonix 40 mg IVP daily. -Continue glycemic protocol with NovoLog sliding scale. Hyperlipidemia -Continue daily medication regimen with atorvastatin 10 mg daily. Data and imaging reviewed: -Labs reviewed. CBC findings. BMP showing improvement of metabolic alkalosis with chloride of 104, bicarb of 20.7, and anion gap of 10.30. Blood glucose 1 14. -Vital signs reviewed. Blood pressure much better controlled now that nausea and vomiting has been controlled. Blood pressure 118/73, heart rate 71, respiratory rate 16, temp 98.3 F, and SpO2 of 97% on room air. CODE STATUS: Full code DVT prophylaxis: Lovenox Anticipated discharge date: Likely within the next [address]: Home Patient was seen independently by Nurse Pracitioner. This document was prepared using [employer] dictation software. Please allow for errors in vice president business development, while rare they do occur. I reviewed the documentation as provided by the YAMILETH above, who is the original author of this note. I agree with the documented assessment and plan, with the following changes: none Objective - Vital Signs Vital signs: Vital Signs Temp 98.3 F 01/08/24 07:55 Pulse 71 01/08/24 07:55 Resp 16 01/08/24 07:55 BP 118/73 01/08/24 07:55 Pulse Ox 97 01/08/24 07:55 FiO2 Intake & Output 01/07/24 01/08/24 01/08/24 18:59 06:59 18:59 Weight 90.718 kg 90.718 kg - Labs CBC & Chem 7: 01/08/24 03:00 01/08/24 03:00 Labs: Abnormal Lab Results - Last 24 Hours (Table) 0901/07/24 01/07/24 Range/Units 14:37 15:00 15:00 RBC (4.10-5.20) X 10*6/uL Hct 47.7 H (34.0-46.0) % MCV (80.0-97.0) FL MCH (27.0-32.0) pg Immature Gran # (0.00-0.04) X 10*3/uL VBG pH (7.31-7.41) VBG pCO2 (37-51) mmHg VBG HCO3 (24-28) mmol/L Sodium 134 L (137-145) mmol/L Chloride (98-107) mmol/L Carbon Dioxide 13 L (22-30) mmol/L BUN (7-17) mg/dL Glucose 163 H (74-99) mg/dL POC Glucose (mg/dL) 152 H (70-110) mg/dL AST 49 H (14-36) U/L Albumin 5.3 H (3.5-5.0) g/dL Urine Protein (Negative) Urine Glucose (UA) (Negative) Urine Ketones (Negative) 01/07/24 01/07/24 01/08/24 Range/Units 15:47 16:45 00:45 RBC (4.10-5.20) X 10*6/uL Hct (34.0-46.0) % MCV (80.0-97.0) FL MCH (27.0-32.0) pg Immature Gran # (0.00-0.04) X 10*3/uL VBG pH 7.43 H (7.31-7.41) VBG pCO2 29 L (37-51) mmHg VBG HCO3 19 L (24-28) mmol/L Sodium 134 L (137-145) mmol/L Chloride 108 H (98-107) mmol/L Carbon Dioxide 21 L (22-30) mmol/L BUN 6 L (7-17) mg/dL Glucose 113 H (74-99) mg/dL POC Glucose (mg/dL) (70-110) mg/dL AST (14-36) U/L Albumin (3.5-5.0) g/dL Urine Protein Trace H (Negative) Urine Glucose (UA) 2+ H (Negative) Urine Ketones 2+ H (Negative) 0901/08/24 01/08/24 Range/Units 01:04 03:00 05:44 RBC 3.85 L (4.10-5.20) X 10*6/uL Hct (34.0-46.0) % MCV 98.4 H (80.0-97.0) FL MCH 32.2 H (27.0-32.0) pg Immature Gran # 0.06 H (0.00-0.04) X 10*3/uL VBG pH (7.31-7.41) VBG pCO2 (37-51) mmHg VBG HCO3 (24-28) mmol/L Sodium (137-145) mmol/L Chloride (98-107) mmol/L Carbon Dioxide (22-30) mmol/L BUN (7-17) mg/dL Glucose (74-99) mg/dL POC Glucose (mg/dL) 115 H 116 H (70-110) mg/dL AST (14-36) U/L Albumin (3.5-5.0) g/dL Urine Protein (Negative) Urine Glucose (UA) (Negative) Urine Ketones (Negative)
[2024-01-08 17:10] LABS: Glucose,Whole Blood 246 mg/dL (70-110)
[2024-01-08 19:34] LABS: Glucose,Whole Blood 208 mg/dL (70-110)
[2024-01-08] MEDS: KETOROLAC 15 MG/ML 1 ML VIAL IVP STA (21:28)
[2024-01-09 01:16] VITALS: RESP 16
[2024-01-09 05:17] LABS: Glucose,Whole Blood 191 mg/dL (70-110)
[2024-01-09 07:30] VITALS: BP 153/96; PULSE 72; TEMP 98.6
[2024-01-09 09:06] LABS: HGB 13.3 g/dL (12.0-15.0); MCHC 32.4 g/dL (32.0-37.0); MCV 98.8 FL (80.0-97.0); Mean Platelet Volume 11.1 FL (9.5-12.2); NRBC Per 100 WBC 0 X 10*3/uL (0.00-0.01); Platelet Count 273 X 10*3/uL (140-440); RBC 4.15 X 10*6/uL (4.10-5.20); RDW 13.4 % (11.5-14.5)
[2024-01-09 09:28] LABS: Magnesium 1.8 mg/dL (1.5-2.4)
[2024-01-09 10:02] LABS: ALT 20 U/L (8-44); AST 17 U/L (13-35); Albumin 3.7 g/dL (3.8-4.9); Albumin/Globulin Ratio 1.95 Ratio (1.60-3.17); Alkaline Phosphatase 78 U/L (41-126); BUN/Creat Ratio 9.14 Ratio (12.00-20.00); Blood Urea Nitrogen 6.4 mg/dL (9.0-27.0); Calcium 9.4 mg/dL (8.7-10.3); Carbon Dioxide 24.6 mmol/L (21.6-31.8); Chloride 105 mmol/L (96-109); Globulin 1.9 g/dL (1.6-3.3); Glucose 205 mg/dL (70-110); Potassium 4.9 mmol/L (3.5-5.5); Sodium 139 mmol/L (135-145); Total Bilirubin 0.3 mg/dL (0.3-1.2); Total Protein 5.6 g/dL (6.2-8.2)
[2024-01-09 12:08] LABS: Glucose,Whole Blood 163 mg/dL (70-110)
--- NOTE | 2024-01-09 16:33 | P.DS ---
Providers Date of admission: 01/07/24 18:46 Expected date of discharge: 01/09/24 Attending physician: Mauricio Madrigal MD Primary care physician: Physician Nonstaff Hospital Course: Discharge Diagnosis: Intractable nausea and vomiting, secondary to gastroparesis. Resolved. High anion gap metabolic alkalosis. Resolved with IV fluid hydration. Diabetic gastroparesis. Insulin-dependent diabetes mellitus. Resume Lantus 25 units nightly and NovoLog sliding scale. GERD. Continue Protonix 40 mg daily and Pepcid 20 mg twice daily as previously prescribed. Hyperlipidemia. Continue daily medication regimen with atorvastatin 10 mg daily. Hospital Course: Patient is a very pleasant 58-year-old female with a past medical history of type 2 insulin-dependent diabetes mellitus, gastroparesis, GERD, depression, and hyperlipidemia. She presented to the emergency department with a chief complaint of abdominal pain, nausea, and vomiting x 5 days. Upon arrival to our facility, patient underwent evaluation in the emergency department. Vital signs upon arrival show blood pressure 195/125, heart rate 94, respiratory rate 18, initial temp 98.2, and SpO2 of 96% on room air. Shortly after arrival patient spiked elevated temp of 100.5 F. EKG was completed showing normal sinus rhythm at 97 bpm with no significant T wave or ST abnormality showing no signs of acute ischemia upon personal review and interpretation. Labs completed and reviewed. CBC unremarkable. BMP showing hyponatremia with sodium of 134, hypocarbia with bicarb of 13, glucose of 163, and liver profile showing elevated AST of 49 otherwise normal findings. Lipase was 120. Troponin was negative at less than 0.012. Urinalysis was positive for ketones and glucose but negative for infection. COVID PCR negative. Patient was provided with IV fluid hydration. She was admitted under our services for high anion gap metabolic acidosis and intractable nausea and vomiting. Patient was placed on symptomatic care and pain management with continuous IV fluid hydration. Metabolic alkalosis resolved. Patient's abdominal pain, nausea, and vomiting resolved. Diet slowly advanced and patient tolerating well. Patient currently free from any pain or complaints at this time and has had no further episodes of vomiting in greater than 24 hours. Medically, patient stable for discharge at this time. Patient to follow-up outpatient with PCP in 1 to 2 days. No medication changes were made during this admission. Physical exam: Vital signs reviewed and stable. General: Nontoxic, no distress and appears stated age. Derm: Skin warm and dry, normal coloration for ethnicity. Head: Atraumatic, normocephalic and symmetric. Eyes: EOM's intact, no lid lag, and anicteric sclera Mouth: no lip lesions, mucus membranes moist Cardiovascular: regular rate and rhythm with normal S1S2, no murmur, positive posterior tibial pulses bilaterally, and cap refill < 2 seconds. Lungs: Respirations even, regular, and unlabored on room air. Lungs CTA bilaterally, no rhonchi, no rales, no wheezing, and no accessory muscle usage. Abdominal: soft, nontender to palpation, no guarding, no appreciable organomegaly Ext: ROM intact. No gross muscle atrophy, no edema, no contractures Neuro: Speech clear, face symmetrical and CN II-XII grossly intact with no noted focal neuro deficits Psych: Alert and oriented to person, place, time, and situation. Appropriate and pleasant affect. A total of 34 minutes of time were spent preparing this complex discharge summary. Pt was discharged on 01/09/2024 at 11:47 AM. Patient was seen independently by Nurse Practitioner. This document was prepared using [employer] dictation software. Please allow for errors in ob tech while rare they do occur. I reviewed the documentation as provided by the YAMILETH above, who is the original author of this note. I agree with the documented assessment and plan, with the following changes: none Patient Condition at Discharge: Stable Plan - Discharge Summary New Discharge Prescriptions: Continue INSULIN ASPART (NovoLOG) [NovoLOG (formulary)] See Protocol SQ ACHS Ondansetron Odt [Zofran ODT] 4 mg PO Q8HR PRN #14 tab PRN Reason: Nausea Insulin Glargine,Hum.rec.anlog [Lantus Solostar Pen] 25 units SQ HS Sulfamethox-Tmp 800-160Mg [Bactrim DS 800-160 mg] 1 tab PO BID Escitalopram [Lexapro] 20 mg PO DAILY Atorvastatin [Lipitor] 10 mg PO DAILY Pantoprazole [Protonix] 40 mg PO DAILY #30 tab Famotidine [Pepcid] 20 mg PO BID Discharge Medication List Atorvastatin [Lipitor] 10 mg PO DAILY 09/11/23 [History] Escitalopram [Lexapro] 20 mg PO DAILY 09/11/23 [History] INSULIN ASPART (NovoLOG) [NovoLOG (formulary)] See Protocol SQ ACHS 09/11/23 [History] Ondansetron Odt [Zofran ODT] 4 mg PO Q8HR PRN #14 tab 01/06/24 [Rx] Pantoprazole [Protonix] 40 mg PO DAILY #30 tab 01/06/24 [Rx] Famotidine [Pepcid] 20 mg PO BID 01/07/24 [History] Insulin Glargine,Hum.rec.anlog [Lantus Solostar Pen] 25 units SQ HS 01/07/24 [History] Sulfamethox-Tmp 800-160Mg [Bactrim DS 800-160 mg] 1 tab PO BID 01/07/24 [History] Follow up Appointment(s)/Referral(s): Nonstaff,Physician [Primary Care Provider] - 1-2 days Patient Instructions/Handouts: Gastroparesis (DC) Discharge Disposition: HOME SELF-CARE
== END 2024-01-09 12:47 | disposition home or self-care (01) ==
LOC: EC 14:32 → 4SSUR 18:46 → 6NMEDSUR 21:38
PROVIDERS: ADMIT Internal Medicine; ATTEND Internal Medicine
DX: E11.43 Type 2 diabetes mellitus with diabetic autonomic (poly)neuropathy (principal); K31.84 Gastroparesis; E87.4 Mixed disorder of acid-base balance; E86.0 Dehydration; E87.1 Hypo-osmolality and hyponatremia; K21.9 Gastro-esophageal reflux disease without esophagitis; E78.5 Hyperlipidemia, unspecified; F32.A Depression, unspecified; R74.01 Elevation of levels of liver transaminase levels; I44.4 Left anterior fascicular block; E66.9 Obesity, unspecified; Z68.31 Body mass index [BMI] 31.0-31.9, adult; Z11.52 Encounter for screening for COVID-19; Z79.4 Long term (current) use of insulin; Z79.899 Other long term (current) drug therapy; Z87.440 Personal history of urinary (tract) infections; Z87.19 Personal history of other diseases of the digestive system; Z87.891 Personal history of nicotine dependence
CPT/HCPCS: 96376; 96361 ×3; 96372 ×2; 96375 ×2; 96374; 99284; 36415; 93005; 80053 ×2; 80048; 82803; 83690; 83735; 84484; 85025 ×2; 85027; 81003; 87635; G0378 ×3; J2270; J1200; J2765; J1650 ×2; J1170; J1885; J2470 ×2